=== PATIENT | male | born 1950 | race Caucasian/White ===

== ENCOUNTER 2021-04-19 14:37 | Emergency (ER) | payer MEDICARE, SELFPAY ==
[2021-04-19 14:48] VITALS: BP 156/84; PULSE 110; RESP 16; TEMP 38.5; O2SAT 96
--- NOTE | 2021-04-19 16:00 | ED.MALEGU ---
HPI - Male Genitourinary General Chief complaint: Fever Stated complaint: fever chills side pain Source: patient Mode of arrival: ambulatory Limitations: no limitations History of Present Illness HPI Narrative: Patient is a 70-year-old male who presents complaining of fever and lower back pain. Patient reports a history of kidney stones. He denies cough, chest pain, fever or shortness of breath. He reports vaccinated for Covid x2. He denies known exposure. Patient reports he was concerned as his urine was dark as well. He denies pain at this time. He denies all other complaints. Related Data Home Medications Medication Instructions Recorded Confirmed atorvastatin 40 mg PO DAILY 04/19/21 04/19/21 tadalafil 20 mg PO PRN PRN 04/19/21 04/19/21 Allergies Allergy/AdvReac Type Severity Reaction Status Date / Time No Known Allergies Allergy Verified 04/19/21 14:52 Review of Systems Review of Systems: CONSTITUTIONAL: Denies fever, chills, or sweats. EYES: Denies visual changes, redness, or discharge. ENT: Denies rhinorrhea, congestion, sore throat, or otalgia. CARDIOVASCULAR: Denies chest pain, palpitations, or edema. RESPIRATORY: Denies cough or dyspnea. GASTROINTESTINAL: Denies abdominal pain, nausea, vomiting, or diarrhea. GENITOURINARY: Denies dysuria, reports dark urine SKIN: Denies rash or itching. MUSCULOSKELETAL: Denies back pain, joint pain, or myalgia. NEUROLOGIC: Denies headache, numbness, dizziness, or weakness. PSYCHIATRIC: Denies anxiety or depression. [facility] Past Medical History Medical History Hypercholesterolemia Kidney stone Surgical History Surgical History History of hip replacement Family History Family History (Updated 04/19/21 @ 16:06 by RYAN Capps) Other Colon cancer Heart disease Hypertension Social History Social History (Updated 04/19/21 @ 16:07 by RYAN Capps) Smoking status: Never smoker Alcohol intake: current Alcohol use details: Occasional Substance use: never Living arrangements: with family Comments At the time of signature, I have reviewed and agree with nursing past medical, surgical, social, and family history unless otherwise noted. Please see nursing chart for further information. There is no relevant family history pertinent to the presenting complaint. Exam Narrative: GENERAL: Well-appearing, well-nourished, and in no acute distress. HEAD: Normocephalic, atraumatic. EYES: EOMI. No redness or drainage. Conjunctiva are normal. ENT: Mucous membranes pink and moist. CHEST: No respiratory distress. Clear to auscultation. HEART: Regular rate and rhythm. No murmur appreciated. Normal peripheral pulses. Bowel sounds normal in all quadrants. MUSCULOSKELETAL: No bony tenderness. EXTREMITIES: Normal range of motion. No edema. SKIN: Warm, dry, no rash. NEURO: No focal deficits. Alert and oriented x3. Gait steady. PSYCH: Normal affect. No signs of depression or anxiety. Course Vital Signs Vital signs: Vital Signs Temperature 38.5 C H 04/19/21 14:48 Pulse Rate 110 H 04/19/21 14:48 Respiratory Rate 16 04/19/21 14:48 Blood Pressure 156/84 H 04/19/21 14:48 Pulse Oximetry 96 04/19/21 14:48 Temperature 38.5 C H 04/19/21 14:48 Pulse Rate 110 H 04/19/21 14:48 Respiratory Rate 16 04/19/21 14:48 Blood Pressure 156/84 H 04/19/21 14:48 Pulse Oximetry 96 04/19/21 14:48 Reviewed. Patient has been instructed to follow-up with his PCP regarding his blood pressure. MDM - Male Genitourinary MDM Narrative Medical decision making narrative: Discussed with patient probable complicated UTI. Patient to be started on Cipro at this time. Discussed patient being seen in the ED at this time, and patient refuse at this time. Discussed with patient the need to follow-up with PCP or urology this
[2021-04-19 16:15] VITALS: PULSE 88; RESP 16; TEMP 38.5; O2SAT 98
== END 2021-04-19 16:15 | disposition home or self-care (01) ==
PROVIDERS: Emergency Provider Nurse Practitioner; PCP Internal Medicine
DX: N39.0 Urinary tract infection, site not specified (principal); E78.00 Pure hypercholesterolemia, unspecified; Z96.649 Presence of unspecified artificial hip joint
CPT/HCPCS: 81003; 87086; 87147; 87181; 87186; 99213; G0463

== ENCOUNTER 2023-01-18 12:34 | Outpatient (CLI) | payer MEDICARE, SELFPAY ==
--- NOTE | ~2023-01-18 | US_ITS ---
US renal BI 01/18/2023 13:19 Procedure: Realtime transabdominal ultrasound of the kidneys and bladder. Indication: Chronic kidney disease. Comparison: KUB dated 04/15/2018. Findings: Right renal echotexture is normal without hydronephrosis, mass or stone. Right kidney measu res 11.7 cm. There is severe left hydronephrosis. Left kidney measures 13.3 cm. There is fatty infilt ration of the liver. There is a 4 cm stone in the left renal pelvis. Impression: 1: Left renal stone measuring 4 cm in the left renal pelvis with severe left hydronephrosis. There is left renal cortical thinning. Reviewed, dictated and finalized at location [] Impression: 1: Left renal stone measuring 4 cm in the left renal pelvis with severe left hy dronephrosis. There is left renal cortical thinning.
== END 2023-01-18 12:35 | disposition home or self-care (01) ==
PROVIDERS: PCP Internal Medicine; Visit Provider Internal Medicine
DX: N18.9 Chronic kidney disease, unspecified (principal); N13.2 Hydronephrosis with renal and ureteral calculous obstruction
CPT/HCPCS: 76775

== ENCOUNTER 2023-06-07 08:58 | Outpatient (CLI) | payer MEDICARE, SELFPAY ==
[2023-06-07 10:03] LABS: Hematocrit 42.3 % (42.0-52.0); Mean Corpuscular HGB Conc 30.7 g/dl (32-36); Mean Corpuscular Hemoglobin 28.7 pg (26-34); Mean Corpuscular Volume 93.4 fl (80-100); Mean Platelet Volume 10.5 fl (7.4-10.4); Platelet Count Result 334 k/mm3 (150-375); Red Blood Count 4.53 M/mm3 (4.6-6.20); Red Cell Distribution Width 13.2 % (11.5-14.5); White Blood Count 6.5 K/mm3 (4.5-10.0)
[2023-06-07 10:09] LABS: Appearance Urine Clear (Clear); Bacteria Urine None Seen /hpf; Bilirubin Urine Negative (Negative); Blood Urine Negative (Negative); Color Urine Yellow (Yellow); Glucose Urine UA Negative (Negative); Ketones Urine Negative (Negative); Leukocyte Esterase Ur Trace LEU/UL (NEGATIVE); Nitrate Urine Negative (Negative); Non Pathogenic Casts 0-2; Protein Urine Negative (Negative); RBC Urine 0-2 /hpf (0-2); Specific Grav Ur 1.014 (1.001-1.035); Squamous Epithelial Cell Urine None seen /hpf (Few); Urobilinogen Urine 0.2 mg/dL (<2.0); pH Urine 6.5 (5.0-9.0)
[2023-06-07 10:14] LABS: Add Urine Microscopic? YES
[2023-06-07 10:36] LABS: Albumin Level 4.1 g/dL (3.5-5.1); Anion Gap 5 mmol/L (8-16); Blood Urea Nitrogen 21 mg/dL (9-20); Calcium 9.4 mg/dL (8.4-10.2); Carbon Dioxide 28 mmol/L (22-30); Chloride 106 mmol/L (98-107); Estimated Glomerular Filt Rate 43; Glucose 92 mg/dL (65-110); Phosphorus 3.5 mg/dL (2.5-4.5); Potassium 4.8 mmol/L (3.4-5.0); Sodium 139 mmol/L (137-145)
[2023-06-07 10:39] LABS: Complement C3 130 mg/dL (88-165)
[2023-06-07 10:47] LABS: Parathyroid Intact 47.7 pg/mL (7.5-53.5)
[2023-06-07 10:52] LABS: Vitamin D 25 Hydroxy 48.2 ng/mL
[2023-06-07 11:00] LABS: Creatinine Urine 97.1 mg/dL; Total Protein Urine Random 9 mg/dL; Ur Ttl Prot Creatinine Ratio 0.09 mg/mg (0-0.20)
[2023-06-07 11:04] LABS: MALB Creatinine Ratio 10.1 mg/g (0-30); Microalbumin Urine Random 9.8 mg/L (0-16.7)
[2023-06-07 11:24] LABS: Hepatitis C Virus Antibody Negative (Negative)
[2023-06-09 14:59] LABS: Albumin 3.5 g/dL (3.8-4.8); Alpha 1 Globulin 0.4 g/dL (0.2-0.3); Alpha 2 Globulin 0.9 g/dL (0.5-0.9); Beta 1 Globulin 0.5 g/dL (0.4-0.6); Gamma Globulin 1.1 g/dL (0.8-1.7); Protein, Total 6.8 g/dL (6.1-8.1)
[2023-06-09 21:33] LABS: Kappa\\Lambda Light Chains 1.59 (0.26-1.65); Lambda Light Chain 28.4 mg/L (5.7-26.3)
== END 2023-06-07 08:59 | disposition home or self-care (01) ==
PROVIDERS: PCP Internal Medicine; Visit Provider Internal Medicine Nephrology
DX: N18.30 Chronic kidney disease, stage 3 unspecified (principal); N20.0 Calculus of kidney; N40.0 Benign prostatic hyperplasia without lower urinary tract symptoms; E78.00 Pure hypercholesterolemia, unspecified
CPT/HCPCS: 36415; 80069; 81001; 82043; 82306; 82570; 83735; 83883; 83970; 84155; 84156; 84165; 85027; 86160; 86803

== ENCOUNTER 2023-12-30 16:47 | Outpatient (CLI) | payer MEDICARE, SELFPAY ==
--- NOTE | ~2023-12-30 | XR_ITS ---
EXAMINATION: XR abdomen/kub 1V DATE: 12/30/2023 17:05 INDICATION: Right kidney stone TECHNIQUE: A supine view of the abdomen on 2 radiographs was obtained. COMPARISON: 04/15/2018 FINDINGS: 7 x 5 mm triangular stone projecting over the mid right kidney and 4 mm stone projecting over the low er pole of the right kidney. Postoperative changes with suture lines and surgical clips to the left o f L1 and L2 and along the medial side of the left iliac crest along with absent left renal shadow sug gesting prior left nephrectomy. Normal bowel gas pattern with no dilated loops of gas-filled bowel to suggest obstruction. Visualized lung bases are clear. Unchanged resurfacing type left hip arthroplas ty with stable appearance of a nonaggressive appearing lytic lesion with thin sclerotic margins in th e left supra-acetabular region. IMPRESSION: 1. A couple right renal stones and postoperative changes suggesting prior left nephrectomy. Reviewed, dictated and finalized at location A.
== END 2023-12-30 16:48 | disposition home or self-care (01) ==
PROVIDERS: PCP Internal Medicine; Visit Provider Urology
DX: N20.0 Calculus of kidney (principal)
CPT/HCPCS: 74018

== ENCOUNTER 2024-01-20 09:30 | Outpatient (CLI) | payer MEDICARE, SELFPAY ==
--- NOTE | ~2024-01-20 | CT_ITS ---
Non-contrast CT scan of the Abdomen and Pelvis Clinical indication: Right kidney stone Technique: 2.5 mm axial scans were obtained through the abdomen and pelvis without intravenous or or al contrast. Dose reduction technique was used on this scan by utilizing automated exposure control a nd iterative reconstruction technique. The dose-length product (DLP) was 487.76 mGy-cm. Findings: Images through the lung bases reveal no abnormalities. Nonobstructing right renal stones are present, largest measuring 8 mm. Status post left nephrectomy. No right ureteral stone or right hydronephrosis seen. The liver, spleen, pancreas, and adrenals appear normal. Probable small gallstones. There are atheros clerotic calcifications of the aorta. There is no evidence of bowel obstruction. Images through the pelvis were performed. There is no evidence of ascites or lymphadenopathy. Right-s ided urinary bladder diverticulum present. No other pelvic mass evident. There is streak artifact in the pelvis from left hip arthroplasty. Impression: Nonobstructing right renal stones, as above. Status post left nephrectomy. Cholelithiasis. Reviewed, dictated and finalized at location M. Impression: Nonobstructing right renal stones, as above. Status post left nephrectomy. Cholelithiasis.
== END 2024-01-20 09:31 | disposition home or self-care (01) ==
LOC: ANHIMG 09:32
PROVIDERS: PCP Internal Medicine; Visit Provider Urology
DX: N20.0 Calculus of kidney (principal); K80.20 Calculus of gallbladder without cholecystitis without obstruction
CPT/HCPCS: 74176

== ENCOUNTER 2024-01-24 10:45 | Outpatient (CLI) | payer MEDICARE, SELFPAY ==
[2024-01-24 11:22] LABS: Hematocrit 44.9 % (42.0-52.0); Hemoglobin 14.6 g/dL (14.0-18.0); Mean Corpuscular HGB Conc 32.5 g/dl (32-36); Mean Corpuscular Hemoglobin 30.1 pg (26-34); Mean Corpuscular Volume 92.6 fl (80-100); Mean Platelet Volume 10.6 fl (7.4-10.4); Platelet Count Result 240 k/mm3 (150-375); Red Blood Count 4.85 M/mm3 (4.6-6.20); Red Cell Distribution Width 13.2 % (11.5-14.5); White Blood Count 6.4 K/mm3 (4.5-10.0)
[2024-01-24 11:26] LABS: Appearance Urine Clear (Clear); Bilirubin Urine Negative (Negative); Blood Urine Negative (Negative); Color Urine Yellow (Yellow); Glucose Urine UA Negative (Negative); Ketones Urine Negative (Negative); Leukocyte Esterase Ur Negative LEU/UL (Negative); Nitrate Urine Negative (Negative); Protein Urine Negative (Negative); Specific Grav Ur 1.007 (1.001-1.035); Urobilinogen Urine 0.2 mg/dL (<2.0); pH Urine 6.5 (5.0-9.0)
[2024-01-24 11:36] LABS: Albumin Level 4.4 g/dL (3.5-5.1); Anion Gap 6 mmol/L (4-12); Blood Urea Nitrogen 22 mg/dL (9-20); CRP < 0.5 mg/dL (<1.0); Calcium 9.4 mg/dL (8.4-10.2); Carbon Dioxide 26 mmol/L (22-30); Chloride 108 mmol/L (98-107); Estimated Glomerular Filt Rate 35; Glucose 92 mg/dL (65-110); Phosphorus 2.6 mg/dL (2.5-4.5); Potassium 4.8 mmol/L (3.4-5.0); Sodium 140 mmol/L (137-145)
[2024-01-24 11:40] LABS: Add Urine Microscopic? NO
[2024-01-24 12:04] LABS: Creatinine Urine 45.7 mg/dL; Total Protein Urine Random 10 mg/dL; Ur Ttl Prot Creatinine Ratio 0.22 mg/mg (0-0.20)
[2024-01-24 12:07] LABS: Vitamin D 25 Hydroxy 49.1 ng/mL
[2024-01-24 12:08] LABS: Microalbumin Urine Random 7.3 mg/L (0-16.7)
[2024-01-24 12:24] LABS: Erythrocyte Sedimentation Rate 13 mm/hr (0-20)
== END 2024-01-24 10:46 | disposition home or self-care (01) ==
LOC: ANHLAB 10:50
PROVIDERS: PCP Internal Medicine; Visit Provider Internal Medicine Nephrology
DX: E78.00 Pure hypercholesterolemia, unspecified (principal); I12.9 Hypertensive chronic kidney disease with stage 1 through stage 4 chronic kidney disease, or unspecified chronic kidney disease; N18.30 Chronic kidney disease, stage 3 unspecified; N20.0 Calculus of kidney; N40.0 Benign prostatic hyperplasia without lower urinary tract symptoms
CPT/HCPCS: 36415; 80069; 81003; 82043; 82306; 82570; 83735; 84156; 85027; 85652; 86140

== ENCOUNTER 2024-02-28 09:38 | Outpatient (CLI) | payer MEDICARE, SELFPAY ==
[2024-03-14 14:10] LABS: Reference Lab Test Name Stone Risk
== END 2024-02-28 09:39 | disposition home or self-care (01) ==
PROVIDERS: PCP Internal Medicine; Visit Provider Internal Medicine Nephrology
DX: N40.0 Benign prostatic hyperplasia without lower urinary tract symptoms (principal); I12.9 Hypertensive chronic kidney disease with stage 1 through stage 4 chronic kidney disease, or unspecified chronic kidney disease; N18.30 Chronic kidney disease, stage 3 unspecified; N20.0 Calculus of kidney; E78.00 Pure hypercholesterolemia, unspecified
CPT/HCPCS: 36415

== ENCOUNTER 2024-04-24 09:38 | Outpatient (CLI) | payer MEDICARE, SELFPAY ==
[2024-04-24 10:42] LABS: Albumin Level 4.2 g/dL (3.5-5.1); Anion Gap 11 mmol/L (4-12); Blood Urea Nitrogen 23 mg/dL (9-20); Carbon Dioxide 25 mmol/L (22-30); Chloride 103 mmol/L (98-107); Estimated Glomerular Filt Rate 33; Glucose 105 mg/dL (65-110); Phosphorus 2.8 mg/dL (2.5-4.5); Potassium 4.2 mmol/L (3.4-5.0); Sodium 139 mmol/L (137-145)
[2024-04-24 10:51] LABS: Parathyroid Intact 56.7 pg/mL (14.5-75.2)
[2024-04-24 10:58] LABS: Creatinine Urine 146.7 mg/dL; Total Protein Urine Random 12 mg/dL; Ur Ttl Prot Creatinine Ratio 0.08 mg/mg (0-0.20)
[2024-04-24 11:00] LABS: Creatinine Urine 146.2 mg/dL
[2024-04-24 11:04] LABS: MALB Creatinine Ratio 27.4 mg/g (0-30)
[2024-04-24 11:29] LABS: Add Urine Microscopic? YES; Appearance Urine Clear (Clear); Bacteria Urine None Seen /hpf; Bilirubin Urine Negative (Negative); Blood Urine Negative (Negative); Color Urine Yellow (Yellow); Glucose Urine UA Negative (Negative); Ketones Urine Negative (Negative); Leukocyte Esterase Ur Trace LEU/UL (Negative); Nitrate Urine Negative (Negative); Non Pathogenic Casts 0-2; Protein Urine Negative (Negative); RBC Urine 0-2 /hpf (0-2); Specific Grav Ur 1.013 (1.001-1.035); Squamous Epithelial Cell Urine None Seen /hpf (Few); WBC Urine 0-5 /hpf (0-3); pH Urine 7.5 (5.0-9.0)
== END 2024-04-24 09:39 | disposition home or self-care (01) ==
LOC: ANHLAB 09:48
PROVIDERS: PCP Internal Medicine; Visit Provider Internal Medicine Nephrology
DX: N18.30 Chronic kidney disease, stage 3 unspecified (principal); N40.0 Benign prostatic hyperplasia without lower urinary tract symptoms; E78.00 Pure hypercholesterolemia, unspecified
CPT/HCPCS: 36415; 80069; 81001; 82043; 82306; 82570; 83970; 84156

== ENCOUNTER 2024-09-19 10:08 | Outpatient (CLI) | payer MEDICARE, SELFPAY ==
--- OUTSIDE RECORDS SUMMARY | 2024-09-19 11:19 | XMS_ITS | Clinical Summary ---
Author Organization [facility] Address [address] [address] Care Team Providers Care Linux Unix Administrator Name Role Phone Yovani Jose MD Primary Care Provider [phone] Medications ciprofloxacin (CIPRO) 500 MG tablet Take 2 tablets (1,000 mg total) by mouth 1 (one) time each day 24 tablet 05/14/2023 Active chlorthalidone 25 MG tablet Take 1 tablet (25 mg total) by mouth 1 (one) time each day in the morning 90 tablet 1 06/08/2023 Active Social History Tobacco Use Types Packs/Day Years Used Date Smoking Tobacco: Never Assessed Sex and Gender Information Value Date Recorded Sex Assigned at Not on file Legal Sex Male 4:20 PM EDT Gender Identity Not on file Sexual Orientation Not on file Last Filed Vital Signs Vital Sign Reading Time Taken Comments Blood Pressure 138/90 05/02/2024 2:39 PM CDT Pulse 79 05/02/2024 2:39 PM CDT Temperature 36.1 C (97 F) 05/02/2024 2:39 PM CDT Respiratory Rate 18 05/02/2024 2:39 PM CDT Oxygen Saturation 97% 05/02/2024 2:39 PM CDT Inhaled Oxygen Concentration - - Weight 105 kg (231 lb 12.8 oz) 05/02/2024 2:39 P M CDT Height - - Body Mass Index - - Plan of Treatment Upcoming Encounters Date Type Department Care Team (Late st Contact Info) Description 10/31/2024 1:00 PM CDT Office Visit [facility] [address] [facility] [address] [place] [address] Obdulio Burgos, DO [address] [facility] [address] [place] [address] Health Maintenance Due Date Last Done Comments Pneumococcal Vaccine: 65+ Ye ars (1 of 2 - PCV) 1957 Colorectal Cancer Screening: Annual FOBT 2000 Colorectal Cancer Screening: Colonoscopy 2000 Colorectal Cancer Screening: Sigmoidoscopy 2000 Influenza Vaccine (#1) 2024 07/11/2019 Hepatitis B Vaccine Aged Out No longe r eligible based on patient's age to complete this topic Insurance AETNA MCR ADV PPO ([id number]) Advance Directives Documents on File Type Date Recorded 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
--- OUTSIDE RECORDS SUMMARY | 2024-09-19 11:19 | XMS_ITS | Clinical Summary ---
Author Organization [facility] Address [address] [place] [id number] Care Team Providers Care Parking Supervisor Name Role Phone Yovani Jose MD Primary Care Provider Karlso Bailey MD Unavailable [phone] Allergies No known active allergies Medications atorvastatin (LIPITOR) 40 mg tablet Take 1 tablet (40 mg total) by mouth daily Active aspirin 81 mg enteric coated tablet Take 1 tablet (81 mg total) by mouth daily 11/09/2013 Active tadalafiL (CIALIS) 20 mg tablet Take 1 tablet (20 mg total) by mouth daily as needed Active apple cider vinegar 300 mg tablet Take by mouth Active cholecalciferol (VITAMIN D-3) 3,000 unit tablet Active chlorthalidone (HYGROTON) 25 mg tablet Take 1 tablet (25 mg total) by mouth daily Active tamsulosin (FLOMAX) 0.4 mg extended release capsule Take 1 capsule (0.4 mg total) by mouth nightly 30 capsule 03/03/2024 Active Active Problems Problem Noted Date Diagnosed Date Calculus of ureter 02/18/2024 Calculus of kidney 02/03/2024 Atrophic kidney, acquired 08/31/2023 Atrophic kidney 08/31/2023 Hypertension 08/19/2023 Hyperlipidemia 08/19/2023 Atrophy of left kidney 08/06/2023 Surgical follow-up care 02/02/2014 Surgical History Surgery Date Site/Laterality Comments PARTIAL HIP ARTHROPLASTY Left PERCUTANEOUS NEPHROSTOMY PCN LEFT 05/13/2023 Left OTHER SURGICAL HISTORY 08/31/2023 Hand Assisted Laparoscopic Left Nephrectomy OTHER SURGICAL HISTORY 03/03/2024 Right ureteroscopy, right stent placement, retrograde pyelogram Medical History Medical History Date Comments Encounter for other orthopedic aftercare Orthopedic aftercare - (Added by TW Conv) Nephrolithiasis BPH (benign prostatic hyperplasia) HLD (hyperlipidemia) Hyperlipidemia 08/19/2023 Hypertension 08/19/2023 H/O left nephrectomy Family History Medical History Relation Name Comments Heart attack Mother's Brother Relation Name Status Comments Mother's Brother Alive Social History Tobacco Use Types Packs/Day Years Used Date Smoking Tobacco: Never Smokeless Tobacco: Never Tobacco Cessation:Counseling Given: Not Answered Alcohol Use Standard Drinks/Week Comments Not Currently 0 (1 standard drink = 0.6 oz pur e alcohol) rare AUDIT-C Answer Date Recorded Frequency of Alcohol Consumption Not on file 03/17/2024 Q2: How many drinks containi ng alcohol do you have on a typical day when you are drinking? Patient does not drink Frequency of Binge Drinking Not on file 04/2024 Personal Safety Answer Date Recorded Have you ever been in or are you currently in a harmful physical or emotional relationship or is someone making you feel afraid or unsafe? 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 Gender Identity Not on file Sexual Orientation Not on file Obstetrics History Last Filed Vital Signs Vital Sign Reading Time Taken Comments Blood Pressure 155/90 03/23/2024 1:10 PM CDT Pulse 87 03/23/2024 1:10 PM CDT Temperature 36.2 C (97.1 F) 03/23/2024 1:10 PM CDT Respiratory Rate 18 03/23/2024 1:10 PM CDT Oxygen Saturation 95% 03/23/2024 1:10 PM CDT Inhaled Oxygen Concentration - - Weight 104.1 kg (229 lb 8 oz) 03/23/2024 10:06 A M CDT Height 180.3 cm (5' 11 ) 03/23/2024 10:06 AM CDT Body Mass Index 32.01 03/23/2024 10:06 AM CDT Plan of Treatment Health Maintenance Due Date Last Done Comments Colon Cancer Screening-Colonoscopy 1951 Depression Screening 1950 Hepatitis C Screening 1950 DTaP/Tdap/Td Vaccine (1 - Tdap) 1962 Hepatitis B Screening 1969 Zoster Vaccine (1 of 2) 2001 Pneumococcal vaccine 65+ (1 of 1 - PCV) 2016 Well Visit 65+ 2016 Covid-19 Vaccine (3 - season) 04/09/202406/2021, 10/22/2020 Influenza Vaccine (#1) 2024 9, 06/03/2018, 06/11/2017 Fall Risk Assessment 03/15/2025 03/15/2024, 02/03/2024, 09/01/2023 Medical Devices Implanted Type 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 Worker Device Identifier Shelf Expiration Date Model / Serial / Lot [employer] Airam Contour 6fr 26cm Large Inner Lumen Low Profile Bladder [employer]cho[employer] T[employer] Latex Free 180-223 - [id number] Implanted:Qty: 1 on 03/23/2024 by Karlos Bailey MD at [facility] Right: Ureter [employer] Airam 10/24/2026 [id number] / / [id number] Explanted Type Area 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 Worker Device Identifier Shelf Expiration Date Model / Serial / Lot [employer] Airam Contour 6fr 26cm Large Inner Lumen Low Profile Bladder [employer]cho[employer] Taper Latex Free 180-223 - [id number] Implanted:Qty: 1 on 03/03/2024 by Karlos Bailey MD at [facility] Explanted:Qty: 1 on 03/23/2024 at [facility] Right: Ureter [employer] Airam 09/17/2026 [id number] / / [id number] Insurance AETNA MEDICARE AETNA MEDICARE Advance Directives For more information, please contact: [phone] * Full Code (Latest Code Status on File) Date Activated Date Inactivated Comments 08/31/2023 6:40 PM 09/01/2023 6:26 PM Care Teams Parking Supervisor Relationship Specialty Start Date End Date Yovani Jose MD PCP - General 10/14/18 [place] [address] [place] [address] Consulting Physician Urology 09/01/23
--- OUTSIDE RECORDS SUMMARY | 2024-09-19 11:19 | XMS_ITS | Data Portability ---
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 Plan of Treatment Reminders Order Date Submit Date Provider Last Modified By Organization Details Last Modified Time Details Appointments None recorded. Lab CMP, serum or plasma 023 023 [facility], [address] [place], [address], 3 09:09:25 CBC w/ auto diff 023 023 [facility], [address] [place], [address], 3 09:09:26 phosphoru s, serum or plasma 023 023 [facility], [address] [place], [address], 3 09:09:23 PTH (parathyr oid hormone), intact, serum or plasma 023 023 [facility], [address] [place], [address], 3 14:49:16 uric acid, serum or plasma 023 023 [facility], [address] [place], [address], 3 09:09:24 vitamin D, 25-hydrox y, total, serum 023 08/22/2 023 [facility], [address] [place], [address], 3 09:09:26 lipid panel, serum [id number] [place] [address] Outpatient Lab, [address] [place], [address], 4 17:28:17 CMP, serum or plasma [id number] [place] [address] Outpatient Lab, [address] [place], [address], 4 17:28:18 TSH, serum or plasma [id number] [place] [address] Lab, [address] [place], [address], 4 17:28:18 CBC w/ auto diff [id number] [place] [address] Outpatient Lab, [address] [place], [address], 4 17:28:18 T4, free, serum [id number] [place] [address] Outpatient Lab, [address] [place], [address], 4 17:28:18 PSA, serum or plasma [id number] [place] [address] Lab, [address] [place], [address], 4 17:28:18 Referral None recorded. Procedures None recorded. Surgeries None recorded. Imaging None recorded. Medication Orders None recorded. Patient TargetsNo targets recorded. Patient Instructions Encounter Date Encounter Id Patient Instructions Last Modified By Organization Details Last Modified Time 03/30/2023 [id number] dementia rating scale-2* Not available 03/30/2023 11:06:06 alcohol misuse* [email or web address] Not available 03/30/2023 11:06:06 depression screening* [email or web address] Not available 03/30/2023 11:06:06 multi-dimensiona health assessment questionnaire* Not available 03/30/2023 11:06:06 Personalized a [facility] Plan and Screening Recommendations Advance Directives - Do you have one? No Advance Directives - Do we have your advance directive on file in your health record? Primary Prevention/Interven tion (prevents or decreases the chance of common diseases from occurring) Smoking Risk: Non Smoker Alcohol Misuse Screening: Negative Weight: Appropriate Overwei ght continue your current weight loss efforts try to lose 5% of your body weight try to lose 10% of your body weight Physical activity: Need more exercise/physical activity Nutrition: Good Average Fall Risk (screened today): Low Vaccines Pneumococcal: Ordered Recommended today Recommended today, but you have declined Influenza: Your next one in the fall of this year Chronic Disease Risks Stroke: Low Risk Intermediate Risk I have no recommendations Act uziel diagnosis, Continue current treatment plan Heart Attack: Low risk Intermediate Risk I have no recommendations Act uziel diagnosis, Continue current treatment plan Clogging of the Arteries: Low risk Intermediate Risk I have no recommendations Act uziel diagnosis, Continue current treatment plan Diabetes: Low Risk Intermediate Risk I have no recommendations Ref er to attached handout Pre-diabetes: After Your Visit Drastically limit sugar and products made with any type of flour (bread, pasta, cereal, cookies, crackers, etc.) Secondary Prevention/Interven tion (detects treatable diseases before they may cause symptoms, disability, or ) Prostate Cancer Screening: Colon Cancer Screening: Colonoscopy Date Screening Last Performed: __2019__ Eye Disease Screening: Dementia Risk: Low I have no recommendations Depression Screening: Negative [email or web address] Not available 03/30/2023 10:48:40 Medicare wellnes s evaluation risk assessment stable. Over overall is doing well. Will check a CMP, lipid, phosphorus, PTH, vitamin-D level and CBC. Obtain radiographic studies of the left shoulder. Instructed to stay away from any nonsteroidals because the renal dysfunction. Will try to to rearrange for a Nephrology consult. X-ray of the left shoulder [email or web address] Not available 03/30/2023 11:05:39 09/28/2023 [id number] Renal calculi-hyperlipide osmar -family history of colorectal cancer -mild obesity. Plan to check blood work in the form of CBC, CMP, lipid, thyroid and PSA. Continue on current Rx follow-up six months. Portions of the record may have been created with voice recognition software. Occasional wrong-word or [id number] substitutions may have occurred due to the inherent limitations of voice recognition software. Read the chart carefully and recognize, using context, where substitutions have occurred. [email or web address] Not available 09/28/2023 10:57:27 Reason for Referral None Reported. Results Created Date Observation Date Name Description Value Unit Range Abnormal Flag Note LastModifiedBy Organization Detail LastModifiedTime 09/19/19 22 09/20/2021 PSA, TOTAL PSA, total 1.14 NG/mL < or = 4.00 normal The total PSA value from this assay syste m is stand ardiz ed again st the WHO stand pily. The test resul t will be appro ximat megan 20% lower when jr red to the equim olar- stand ardiz ed total PSA (Alonso man Coult er). Jr rison of seria l PSA resul ts shoul d be inter prete d with this fact in mind. This test was perfo rmed using the Identity Enginese ns chemi lumin escen t metho d. Value s obtai logan from diffe rent assay metho ds canno t be used inter shah eably . PSA level s, regar dless of value , shoul d not be inter prete d as absol [place] evide nce of the prese nce or absen ce of disea se. Not Available [facility] [employer] [place] [address] [address] [place], [address], 09/20/2021 06:42:52 09/19/19 22 09/20/2021 CBC (INCL UDES DIFF/ PLT) white blood cell count 6.4 thous and/u L 3.8-10 .8 normal Not Available [facility] [place] [facility] [address] [place], [address], 09/20/2021 06:42:51 09/19/19 22 09/20/2021 CBC (INCL UDES DIFF/ PLT) red blood cell count 4.56 bre on/uL 4.20-5 .80 normal Not Available [address], [address], 09/20/2021 06:42:51 09/19/19 22 09/20/2021 CBC (INCL UDES DIFF/ PLT) hemoglobin 13.6 g/dL 13.2-1 7.1 normal Not Available [address], [address], 09/20/2021 06:42:51 09/19/19 22 09/20/2021 CBC (INCL UDES DIFF/ PLT) hematocrit 40.6 % 38.5-5 0.0 normal Not Available [address], [address], 09/20/2021 06:42:51 09/19/19 22 09/20/2021 CBC (INCL UDES DIFF/ PLT) MCV 89.0 fL 80.0-1 00.0 normal Not Available [address], [address], 09/20/2021 06:42:51 09/19/19 22 09/20/2021 CBC (INCL UDES DIFF/ PLT) MCH 29.8 pg 27.0-3 3.0 normal Not Available [address], [address], 09/20/2021 06:42:51 09/19/19 22 09/20/2021 CBC (INCL UDES DIFF/ PLT) MCHC 33.5 g/dL 32.0-3 6.0 normal Not Available [address], [address], 09/20/2021 06:42:51 09/19/19 22 09/20/2021 CBC (INCL UDES DIFF/ PLT) RDW 13.1 % 11.0-1 5.0 normal Not Available [address], [address], 09/20/2021 06:42:51 09/19/19 22 09/20/2021 CBC (INCL UDES DIFF/ PLT) platelet count 309 thous and/u L 140-40 0 normal Not Available [address], [address], 09/20/2021 06:42:51 09/19/19 22 09/20/2021 CBC (INCL UDES DIFF/ PLT) MPV 11.6 fL 7.5-12 .5 normal Not Available [address], [address], 09/20/2021 06:42:51 09/19/19 22 09/20/2021 CBC (INCL UDES DIFF/ PLT) absolute neutrophils 4006 cells /uL 1500-7 800 normal Not Available [address], [address], 09/20/2021 06:42:51 09/19/19 22 09/20/2021 CBC (INCL UDES DIFF/ PLT) absolute lymphocytes 1651 cells /uL 850-39 00 normal Not Available [address], [address], 09/20/2021 06:42:51 09/19/19 22 09/20/2021 CBC (INCL UDES DIFF/ PLT) absolute monocytes 563 cells /uL 200-95 0 normal Not Available [address], [address], 09/20/2021 06:42:51 09/19/19 22 09/20/2021 CBC (INCL UDES DIFF/ PLT) absolute eosinophils 128 cells /uL 15-500 normal Not Available [address], [address], 09/20/2021 06:42:51 09/19/19 22 09/20/2021 CBC (INCL UDES DIFF/ PLT) absolute basophils 51 cells /uL 0-200 normal Not Available [facility] [address], [address], 09/20/2021 06:42:51 09/19/19 22 09/20/2021 CBC (INCL UDES DIFF/ PLT) neutrophils 62.6 % normal Not Available [facility] [address], [address], 09/20/2021 06:42:51 09/19/19 22 09/20/2021 CBC (INCL UDES DIFF/ PLT) lymphocytes 25.8 % normal Not Available [facility] [address], [address], 09/20/2021 06:42:51 09/19/19 22 09/20/2021 CBC (INCL UDES DIFF/ PLT) monocytes 8.8 % normal Not Available [facility] [address], [address], 09/20/2021 06:42:51 09/19/19 22 09/20/2021 CBC (INCL UDES DIFF/ PLT) eosinophils 2.0 % normal Not Available [facility] [address], [address], 09/20/2021 06:42:51 09/19/19 22 09/20/2021 CBC (INCL UDES DIFF/ PLT) basophils 0.8 % normal Not Available [facility] [address], [address], 09/20/2021 06:42:51 09/19/19 22 09/20/2021 COMPR EHENS UIZEL METAB OLIC PANEL glucose 90 mg/dL 65-99 normal Fasti ng refer ence inter ricky Not Available [facility] [address], [address], 09/20/2021 06:42:51 09/19/19 22 09/20/2021 COMPR EHENS UZIEL METAB OLIC PANEL urea nitrogen (BUN) 23 mg/dL 7-25 normal Not Available [address] [address] [place], [address], 09/20/2021 06:42:51 09/19/19 22 09/20/2021 COMPR EHENS UZIEL METAB OLIC PANEL creatinine 1.30 mg/dL 0.70-1 .18 high For patie nts >49 years of age, the refer ence limit for Creat inine is appro ximat megan 13% highe r for peopl e ident ified as Afric an-Am sabrina n. Not Available [address] [address] [place], [address], 09/20/2021 06:42:51 09/19/19 22 09/20/2021 COMPR EHENS UZIEL METAB OLIC PANEL eGFR non-afr. uzbek 55 mL/mi n/1.7 3m2 > or = 60 low Not Available [address] [address] [place], [address], 09/20/2021 06:42:51 09/19/19 22 09/20/2021 COMPR EHENS UZIEL METAB OLIC PANEL eGFR 64 mL/mi n/1.7 3m2 > or = 60 normal Not Available [address] [address] [place], [address], 09/20/2021 06:42:51 09/19/19 22 09/20/2021 COMPR EHENS UZIEL METAB OLIC PANEL BUN/creatini ne ratio 18 (calc ) 6-22 normal Not Available [address] [address] [place], [address], 09/20/2021 06:42:51 09/19/19 22 09/20/2021 COMPR EHENS UZIEL METAB OLIC PANEL sodium 138 mmol/ L 135-14 6 normal Not Available [facility] [address] [address] [place], [address], 09/20/2021 06:42:51 09/19/19 22 09/20/2021 COMPR EHENS UZIEL METAB OLIC PANEL potassium 4.6 mmol/ L 3.5-5. 3 normal Not Available [address], [address], 09/20/2021 06:42:51 09/19/19 22 09/20/2021 COMPR EHENS UZIEL METAB OLIC PANEL chloride 104 mmol/ L 98-110 normal Not Available [address], [address], 09/20/2021 06:42:51 09/19/19 22 09/20/2021 COMPR EHENS UZIEL METAB OLIC PANEL carbon dioxide 27 mmol/ L 20-32 normal Not Available [address], [address], 09/20/2021 06:42:51 09/19/19 22 09/20/2021 COMPR EHENS UZIEL METAB OLIC PANEL calcium 9.6 mg/dL 8.6-10 .3 normal Not Available [address], [address], 09/20/2021 06:42:51 09/19/19 22 09/20/2021 COMPR EHENS UZIEL METAB OLIC PANEL protein, total 6.8 g/dL 6.1-8. 1 normal Not Available [address], [address], 09/20/2021 06:42:51 09/19/19 22 09/20/2021 COMPR EHENS UZIEL METAB OLIC PANEL albumin 4.0 g/dL 3.6-5. 1 normal Not Available [address], [address], 09/20/2021 06:42:51 09/19/19 22 09/20/2021 COMPR EHENS UZIEL METAB OLIC PANEL globulin 2.8 g/dL_ (calc ) 1.9-3. 7 normal Not Available [address] [place], [address], 09/20/2021 06:42:51 09/19/19 22 09/20/2021 COMPR EHENS UZIEL METAB OLIC PANEL albumin/glob ulin ratio 1.4 (calc ) 1.0-2. 5 normal Not Available [address], [address], 09/20/2021 06:42:51 09/19/19 22 09/20/2021 COMPR EHENS UZIEL METAB OLIC PANEL bilirubin, total 0.4 mg/dL 0.2-1. 2 normal Not Available [address], [address], 09/20/2021 06:42:51 09/19/19 22 09/20/2021 COMPR EHENS UZIEL METAB OLIC PANEL alkaline phosphatase 70 U/L 35-144 normal Not Available [address], [address], 09/20/2021 06:42:51 09/19/19 22 09/20/2021 COMPR EHENS UZIEL METAB OLIC PANEL AST 15 U/L 10-35 normal Not Available [address], [address], 09/20/2021 06:42:51 09/19/19 22 09/20/2021 COMPR EHENS UZIEL METAB OLIC PANEL ALT 19 U/L 9-46 normal Not Available [address], [address], 09/20/2021 06:42:51 09/19/19 22 09/20/2021 LIPID PANEL , STAND PILY cholesterol, total 184 mg/dL <200 normal Not Available [address], [address], 09/20/2021 06:42:50 09/19/19 22 09/20/2021 LIPID PANEL , STAND PILY HDL cholesterol 49 mg/dL > or = 40 normal Not Available [address] [address] [place], [address], 09/20/2021 06:42:50 09/19/19 22 09/20/2021 LIPID PANEL , STAND PILY triglyceride s 155 mg/dL <150 high Not Available [facility] [address] [address] [place], [address], 09/20/2021 06:42:50 09/19/19 22 09/20/2021 LIPID PANEL , STAND PILY LDL-choleste rol 108 mg/dL _(zohreh c) high Refer ence range : <100 Maria Eugenia able range <100 mg/dL for prima ry preve ntion ; <70 mg/dL for patie nts with CHD or diabe tic patie nts with > or = 2 CHD risk facto rs. LDL-C is now calcu lated using the Lisa echeverria-Hop klever mehta n, which is a valid ated novel danyelo ryder wan rolly r accur acy than the Fried jaz equat ion in the estim ation of LDL-C . Lisa echeverria SS et al. BASSEM. 2013; 310(1 9): 2061- 2068 (http ://ed ucati on.Ideal Me Danita [employer]. com/f aq/FA Q164) Not Available [facility] [address] [address] [place], [address], 09/20/2021 06:42:50 09/19/19 22 09/20/2021 LIPID PANEL , STAND PILY chol/HDLC ratio 3.8 (calc ) <5.0 normal Not Available [facility] [address] [address] [address] [place], [address], 09/20/2021 06:42:50 09/19/19 22 09/20/2021 LIPID PANEL , STAND PILY non HDL cholesterol 135 mg/dL _(zohreh c) <130 high For patie nts with diabe belen plus 1 major ASCVD risk facto r, treat ing to a non-H DL-C goal of <100 mg/dL (LDL- C of <70 mg/dL ) is consi dered a thera peuti c optio n. Not Available [facility] [address], [address], 09/20/2021 06:42:50 11/04/19 23 11/04/2022 PROTE IN, TOTAL , 24 HOUR URINE (W/O CREAT ININE ) protein, total, 24 HR ur 160 mg/24 _h <150 high URINE VOLUM E: 1600/ 24 Not Available [address], [address], 11/04/2022 14:34:35 01/03/2001/06/2023 CREAT ININE CLEAR ANCE creatinine 1.71 mg/dL 0.70-1 .28 high Not Available [facility] [address], [address], 01/06/2023 14:29:04 01/03/20 23 01/06/2023 CREAT ININE CLEAR ANCE eGFR 42 mL/mi n/1.7 3m2 > or = 60 low The eGFR is based on the CKD-E PI 2020 chuy lombardo. To calcu late the new eGFR from a previ ous Creat inine or Cysta tin C resul t, go to https ://anthony gould.kandace hodge/debra monahan s/ kdoqi /gfr% 5Fcal culat or Not Available [address], [address], 01/06/2023 14:29:04 01/03/20 23 01/06/2023 CREAT ININE CLEAR ANCE creatinine, 24 hour urine 1.28 g/24_ h 0.50-2 .15 normal Not Available [address] [address] [place], [address], 01/06/2023 14:29:04 01/03/20 23 01/06/2023 CREAT ININE CLEAR ANCE body surface area 2.17 Not Available [facility] [place] [address] [place], [address], 01/06/2023 14:29:04 01/03/2001/06/2023 CREAT ININE CLEAR ANCE creatinine clearance 41 mL/mi n 85-125 low Not Available [facility] [address] [place], [address], 01/06/2023 14:29:04 01/03/20 23 01/06/2023 CREAT ININE CLEAR ANCE height feet 5 FT Not Available [address], [address], 01/06/2023 14:29:04 01/03/20 23 01/06/2023 CREAT ININE CLEAR ANCE height inches 11 in Not Available [address], [address], 01/06/2023 14:29:04 01/03/2001/06/2023 CREAT ININE CLEAR ANCE weight pounds 215 Not Available [address], [address], 01/06/2023 14:29:04 04/07/2004/08/2023 PTH, INTAC T AND CALCI UM parathyroid hormone, intact 42 pg/mL 16-77 normal Inter preti ve Guide Intac t PTH Calci um ----- ----- ----- --- ----- ----- ----- -- Maria Guadalupe l Parat hyroi d Maria Guadalupe l Maria Guadalupe l Hypop brian yroid ism Low or Low Maria Guadalupe l Low Hyper parat hyroi dism Prima ry Maria Guadalupe l or High High Secon anthony High Maria Guadalupe l or Low Terti amelia High High Non-P brian yroid Hyper calce osmar Low or Low Maria Guadalupe l High Not Available [address] [address] [place], [address], 04/08/2023 09:09:22 04/07/20 23 04/08/2023 PTH, INTAC T AND CALCI UM calcium 9.5 mg/dL 8.6-10 .3 normal Not Available [address], [address], 04/08/2023 09:09:22 04/07/20 23 04/08/2023 PHOSP HATE ( PHOSP HORUS ) phosphate ( phosphorus) 3.0 mg/dL 2.1-4. 3 normal Not Available [address], [address], 04/08/2023 09:09:23 04/07/20 23 04/08/2023 URIC ACID uric acid 6.7 mg/dL 4.0-8. 0 normal Thera peuti c targe t for gout patie nts: <6.0 mg/dL Not Available [address], [address], 04/08/2023 09:09:24 04/07/20 23 04/08/2023 COMPR EHENS UZIEL METAB OLIC PANEL glucose 88 mg/dL 65-99 normal Fasti ng refer ence inter ricky Not Available [address], [address], 04/08/2023 09:09:25 04/07/2004/08/2023 COMPR EHENS UZIEL METAB OLIC PANEL urea nitrogen (BUN) 23 mg/dL 7-25 normal Not Available [address], [address], 04/08/2023 09:09:25 04/07/20 23 04/08/2023 COMPR EHENS UZIEL METAB OLIC PANEL creatinine 1.90 mg/dL 0.70-1 .28 high Not Available [address], [address], 04/08/2023 09:09:25 04/07/20 23 04/08/2023 COMPR EHENS UZIEL METAB OLIC PANEL eGFR 37 mL/mi n/1.7 3m2 > or = 60 low Not Available [address], [address], 04/08/2023 09:09:25 04/07/20 23 04/08/2023 COMPR EHENS UZIEL METAB OLIC PANEL BUN/creatini ne ratio 12 (calc ) 6-22 normal Not Available [address], [address], 04/08/2023 09:09:25 04/07/20 23 04/08/2023 COMPR EHENS UZIEL METAB OLIC PANEL sodium 141 mmol/ L 135-14 6 normal Not Available [address], [address], 04/08/2023 09:09:25 04/07/20 23 04/08/2023 COMPR EHENS UZIEL METAB OLIC PANEL potassium 5.0 mmol/ L 3.5-5. 3 normal Not Available [address], [address], 04/08/2023 09:09:25 04/07/20 23 04/08/2023 COMPR EHENS UZIEL METAB OLIC PANEL chloride 105 mmol/ L 98-110 normal Not Available [address], [address], 04/08/2023 09:09:25 04/07/20 23 04/08/2023 COMPR EHENS UZIEL METAB OLIC PANEL carbon dioxide 26 mmol/ L 20-32 normal Not Available [address], [address], 04/08/2023 09:09:25 04/07/20 23 04/08/2023 COMPR EHENS UZIEL METAB OLIC PANEL calcium 9.5 mg/dL 8.6-10 .3 normal Not Available [address] [place], [address], 04/08/2023 09:09:25 04/07/20 23 04/08/2023 COMPR EHENS UZIEL METAB OLIC PANEL protein, total 7.2 g/dL 6.1-8. 1 normal Not Available [address], [address], 04/08/2023 09:09:25 04/07/20 23 04/08/2023 COMPR EHENS UZIEL METAB OLIC PANEL albumin 4.0 g/dL 3.6-5. 1 normal Not Available [address], [address], 04/08/2023 09:09:25 04/07/20 23 04/08/2023 COMPR EHENS UZIEL METAB OLIC PANEL globulin 3.2 g/dL_ (calc ) 1.9-3. 7 normal Not Available [address], [address], 04/08/2023 09:09:25 04/07/20 23 04/08/2023 COMPR EHENS UZIEL METAB OLIC PANEL albumin/glob ulin ratio 1.3 (calc ) 1.0-2. 5 normal Not Available [address], [address], 04/08/2023 09:09:25 04/07/20 23 04/08/2023 COMPR EHENS UZIEL METAB OLIC PANEL bilirubin, total 0.4 mg/dL 0.2-1. 2 normal Not Available [address], [address], 04/08/2023 09:09:25 04/07/20 23 04/08/2023 COMPR EHENS UZILE METAB OLIC PANEL alkaline phosphatase 83 U/L 35-144 normal Not Available [address], [address], 04/08/2023 09:09:25 04/07/20 23 04/08/2023 COMPR EHENS UZIEL METAB OLIC PANEL AST 14 U/L 10-35 normal Not Available [address], [address], 04/08/2023 09:09:25 04/07/20 23 04/08/2023 COMPR EHENS UZIEL METAB OLIC PANEL ALT 17 U/L 9-46 normal Not Available [address], [address], 04/08/2023 09:09:25 04/07/20 23 04/08/2023 CBC (INCL UDES DIFF/ PLT) white blood cell count 7.6 thous and/u L 3.8-10 .8 normal Not Available [address], [address], 04/08/2023 09:09:26 04/07/20 23 04/08/2023 CBC (INCL UDES DIFF/ PLT) red blood cell count 4.76 bre on/uL 4.20-5 .80 normal Not Available [address], [address], 04/08/2023 09:09:26 04/07/20 23 04/08/2023 CBC (INCL UDES DIFF/ PLT) hemoglobin 14.1 g/dL 13.2-1 7.1 normal Not Available [address], [address], 04/08/2023 09:09:26 04/07/2004/08/2023 CBC (INCL UDES DIFF/ PLT) hematocrit 42.2 % 38.5-5 0.0 normal Not Available [address], [address], 04/08/2023 09:09:26 04/07/20 23 04/08/2023 CBC (INCL UDES DIFF/ PLT) MCV 88.7 fL 80.0-1 00.0 normal Not Available [address], [address], 04/08/2023 09:09:26 04/07/20 23 04/08/2023 CBC (INCL UDES DIFF/ PLT) MCH 29.6 pg 27.0-3 3.0 normal Not Available [address], [address], 04/08/2023 09:09:26 04/07/20 23 04/08/2023 CBC (INCL UDES DIFF/ PLT) MCHC 33.4 g/dL 32.0-3 6.0 normal Not Available [address], [address], 04/08/2023 09:09:04/07/2004/08/2023 CBC (INCL UDES DIFF/ PLT) RDW 13.6 % 11.0-1 5.0 normal Not Available [address], [address], 04/08/2023 09:09:26 04/07/2004/08/2023 CBC (INCL UDES DIFF/ PLT) platelet count 258 thous and/u L 140-40 0 normal Not Available [address], [address], 04/08/2023 09:09:26 04/07/2004/08/2023 CBC (INCL UDES DIFF/ PLT) MPV 11.5 fL 7.5-12 .5 normal Not Available [address], [address], 04/08/2023 09:09:26 04/07/2004/08/2023 CBC (INCL UDES DIFF/ PLT) absolute neutrophils 5685 cells /uL 1500-7 800 normal Not Available [address], [address], 04/08/2023 09:09:26 04/07/20 23 04/08/2023 CBC (INCL UDES DIFF/ PLT) absolute lymphocytes 1186 cells /uL 850-39 00 normal Not Available [address], [address], 04/08/2023 09:09:26 04/07/20 23 04/08/2023 CBC (INCL UDES DIFF/ PLT) absolute monocytes 593 cells /uL 200-95 0 normal Not Available [address], [address], 04/08/2023 09:09:26 04/07/20 23 04/08/2023 CBC (INCL UDES DIFF/ PLT) absolute eosinophils 84 cells /uL 15-500 normal Not Available [address], [address], 04/08/2023 09:09:26 04/07/20 23 04/08/2023 CBC (INCL UDES DIFF/ PLT) absolute basophils 53 cells /uL 0-200 normal Not Available [address], [address], 04/08/2023 09:09:26 04/07/20 23 04/08/2023 CBC (INCL UDES DIFF/ PLT) neutrophils 74.8 % normal Not Available [address], [address], 04/08/2023 09:09:26 04/07/20 23 04/08/2023 CBC (INCL UDES DIFF/ PLT) lymphocytes 15.6 % normal Not Available [address], [address], 04/08/2023 09:09:26 04/07/20 23 04/08/2023 CBC (INCL UDES DIFF/ PLT) monocytes 7.8 % normal Not Available [address], [address], 04/08/2023 09:09:26 04/07/20 23 04/08/2023 CBC (INCL UDES DIFF/ PLT) eosinophils 1.1 % normal Not Available [address], [address], 04/08/2023 09:09:26 04/07/20 23 04/08/2023 CBC (INCL UDES DIFF/ PLT) basophils 0.7 % normal Not Available [address], [address], 04/08/2023 09:09:26 04/07/20 23 04/08/2023 VITAM IN D,25- OH,TO MELINDA,I A vitamin D,25-oh,tota l,ia 42 NG/mL 30-100 normal Vitam in D Statu s 25-OH Vitam in D: Defic iency : <20 ng/mL Insuf ficie ncy: 20 - 29 ng/mL Optim al: > or = 30 ng/mL For 25-OH Vitam in D testi ng on patie nts on D2-garay pplem entat ion and patie nts for whom quant itati on of D2 and D3 fract ions is requi red, the [facility](TM ) 25-OH VIT D, (D2,D 3), LC/MS /MS is recom aram d: order code 02188 (brandie ents >2yrs ). See Note 1 Note 1 For addit ional infor trent lu refer to http: //coni Olivera stDia gnost ics.c om/fa q/FAQ 199 (This link is being provi ded for infor monik gomez/ jame palafox ses only. ) Not Available [address], [address], 04/08/2023 09:09:26 10/27/19 24 10/28/2023 LIPID PANEL , STAND PILY cholesterol, total 207 mg/dL <200 high Not Available [address], [address], 10/28/2023 07:25:25 10/27/19 24 10/28/2023 LIPID PANEL , STAND PILY HDL cholesterol 45 mg/dL > or = 40 normal Not Available [facility] [id number] [place] [address], [id number], 10/28/2023 07:25:25 10/27/19 24 10/28/2023 LIPID PANEL , STAND PILY triglyceride s 267 mg/dL <150 high If a non-f astin g speci men was colle cted, consi diane repea t trigl yceri de testi ng on a fasti ng speci men if clini prateek indic ated. Pradeep jaffe et al. J. of Clin. Lipid ol. 2015; 9:129 -169. Not Available [address], [address], 10/28/2023 07:25:25 10/27/19 24 10/28/2023 LIPID PANEL , STAND PILY LDL-choleste rol 121 mg/dL _(zohreh c) high Refer ence range : <100 Maria Eugenia able range <100 mg/dL for prima ry preve ntion ; <70 mg/dL for patie nts with CHD or diabe tic patie nts with > or = 2 CHD risk facto rs. LDL-C is now calcu lated using the Lisa n-Hop kins brendenu janine n, which is a valid ated novel roger copeland acy than the Fried jaz equat ion in the estim ation of LDL-C . Lisa echeverria SS et al. BASSEM. 2013; 310(1 9): 2061- 2068 (http ://ed ucati on.Qu Danita [employer]. com/f aq/FA Q164) Not Available [facility] [id number] [place] [address], [address], 10/28/2023 07:25:25 10/27/19 24 10/28/2023 LIPID PANEL , STAND PILY chol/HDLC ratio 4.6 (calc ) <5.0 normal Not Available [address] [address] [place], [address], 10/28/2023 07:25:25 10/27/19 24 10/28/2023 LIPID PANEL , STAND PILY non HDL cholesterol 162 mg/dL _(zohreh c) <130 high For patie nts with diabe belen plus 1 major ASCVD risk facto r, treat ing to a non-H DL-C goal of <100 mg/dL (LDL- C of <70 mg/dL ) is consi dered a thera peuti c optio n. Not Available [address], [address], 10/28/2023 07:25:25 10/27/19 24 10/28/2023 COMPR EHENS UZIEL METAB OLIC PANEL glucose 93 mg/dL 65-99 normal Fasti ng refer ence inter ricky Not Available [address] [place], [address], 10/28/2023 07:25:26 10/27/19 24 10/28/2023 COMPR EHENS UZIEL METAB OLIC PANEL urea nitrogen (BUN) 24 mg/dL 7-25 normal Not Available [address], [address], 10/28/2023 07:25:26 10/27/19 24 10/28/2023 COMPR EHENS UZIEL METAB OLIC PANEL creatinine 1.69 mg/dL 0.70-1 .28 high Not Available [address] [address] [place], [address], 10/28/2023 07:25:26 10/27/19 24 10/28/2023 COMPR EHENS UZIEL METAB OLIC PANEL eGFR 43 mL/mi n/1.7 3m2 > or = 60 low Not Available [address] [place], [address], 10/28/2023 07:25:26 10/27/19 24 10/28/2023 COMPR EHENS UZIEL METAB OLIC PANEL BUN/creatini ne ratio 14 (calc ) 6-22 normal Not Available [address], [address], 10/28/2023 07:25:26 10/27/19 24 10/28/2023 COMPR EHENS UZIEL METAB OLIC PANEL sodium 139 mmol/ L 135-14 6 normal Not Available [address], [address], 10/28/2023 07:25:26 10/27/19 24 10/28/2023 COMPR EHENS UZIEL METAB OLIC PANEL potassium 5.3 mmol/ L 3.5-5. 3 normal Not Available [address], [address], 10/28/2023 07:25:26 10/27/19 24 10/28/2023 COMPR EHENS UZIEL METAB OLIC PANEL chloride 105 mmol/ L 98-110 normal Not Available [address], [address], 10/28/2023 07:25:26 10/27/19 24 10/28/2023 COMPR EHENS UZIEL METAB OLIC PANEL carbon dioxide 28 mmol/ L 20-32 normal Not Available [address], [address], 10/28/2023 07:25:26 10/27/19 24 10/28/2023 COMPR EHENS UZIEL METAB OLIC PANEL calcium 9.4 mg/dL 8.6-10 .3 normal Not Available [address], [address], 10/28/2023 07:25:26 10/27/19 24 10/28/2023 COMPR EHENS UZIEL METAB OLIC PANEL protein, total 6.8 g/dL 6.1-8. 1 normal Not Available [address] [place], [address], 10/28/2023 07:25:26 10/27/19 24 10/28/2023 COMPR EHENS UZIEL METAB OLIC PANEL albumin 3.9 g/dL 3.6-5. 1 normal Not Available [address], [address], 10/28/2023 07:25:26 10/27/19 24 10/28/2023 COMPR EHENS UZIEL METAB OLIC PANEL globulin 2.9 g/dL_ (calc ) 1.9-3. 7 normal Not Available [address], [address], 10/28/2023 07:25:26 10/27/19 24 10/28/2023 COMPR EHENS UZIEL METAB OLIC PANEL albumin/glob ulin ratio 1.3 (calc ) 1.0-2. 5 normal Not Available [address], [address], 10/28/2023 07:25:26 10/27/19 24 10/28/2023 COMPR EHENS UZIEL METAB OLIC PANEL bilirubin, total 0.5 mg/dL 0.2-1. 2 normal Not Available [address], [address], 10/28/2023 07:25:26 10/27/19 24 10/28/2023 COMPR EHENS UZIEL METAB OLIC PANEL alkaline phosphatase 81 U/L 35-144 normal Not Available [facility] trend.ly [address] [address] [place], [address], 10/28/2023 07:25:26 10/27/19 24 10/28/2023 COMPR EHENS UZIEL METAB OLIC PANEL AST 13 U/L 10-35 normal Not Available [address], [address], 10/28/2023 07:25:26 10/27/19 24 10/28/2023 COMPR EHENS UZIEL METAB OLIC PANEL ALT 16 U/L 9-46 normal Not Available [address], [address], 10/28/2023 07:25:26 10/27/19 24 10/28/2023 CBC (INCL UDES DIFF/ PLT) white blood cell count 6.7 thous and/u L 3.8-10 .8 normal Not Available [address], [address], 10/28/2023 07:25:27 10/27/19 24 10/28/2023 CBC (INCL UDES DIFF/ PLT) red blood cell count 4.77 bre on/uL 4.20-5 .80 normal Not Available [address], [address], 10/28/2023 07:25:27 10/27/19 24 10/28/2023 CBC (INCL UDES DIFF/ PLT) hemoglobin 14.1 g/dL 13.2-1 7.1 normal Not Available [address], [address], 10/28/2023 07:25:27 10/27/19 24 10/28/2023 CBC (INCL UDES DIFF/ PLT) hematocrit 42.3 % 38.5-5 0.0 normal Not Available [address], [address], 10/28/2023 07:25:27 10/27/19 24 10/28/2023 CBC (INCL UDES DIFF/ PLT) MCV 88.7 fL 80.0-1 00.0 normal Not Available [address], [address], 10/28/2023 07:25:27 10/27/19 24 10/28/2023 CBC (INCL UDES DIFF/ PLT) MCH 29.6 pg 27.0-3 3.0 normal Not Available [address], [address], 10/28/2023 07:25:27 10/27/19 24 10/28/2023 CBC (INCL UDES DIFF/ PLT) MCHC 33.3 g/dL 32.0-3 6.0 normal Not Available [address], [address], 10/28/2023 07:25:27 10/27/19 24 10/28/2023 CBC (INCL UDES DIFF/ PLT) RDW 12.9 % 11.0-1 5.0 normal Not Available [address], [address], 10/28/2023 07:25:27 10/27/19 24 10/28/2023 CBC (INCL UDES DIFF/ PLT) platelet count 261 thous and/u L 140-40 0 normal Not Available [address], [address], 10/28/2023 07:25:27 10/27/19 24 10/28/2023 CBC (INCL UDES DIFF/ PLT) MPV 11.5 fL 7.5-12 .5 normal Not Available [address], [address], 10/28/2023 07:25:27 10/27/19 24 10/28/2023 CBC (INCL UDES DIFF/ PLT) absolute neutrophils 4268 cells /uL 1500-7 800 normal Not Available [address], [address], 10/28/2023 07:25:27 10/27/19 24 10/28/2023 CBC (INCL UDES DIFF/ PLT) absolute lymphocytes 1554 cells /uL 850-39 00 normal Not Available [address], [address], 10/28/2023 07:25:27 10/27/19 24 10/28/2023 CBC (INCL UDES DIFF/ PLT) absolute monocytes 683 cells /uL 200-95 0 normal Not Available [address], [address], 10/28/2023 07:25:27 10/27/19 24 10/28/2023 CBC (INCL UDES DIFF/ PLT) absolute eosinophils 147 cells /uL 15-500 normal Not Available [address], [address], 10/28/2023 07:25:27 10/27/19 24 10/28/2023 CBC (INCL UDES DIFF/ PLT) absolute basophils 47 cells /uL 0-200 normal Not Available [address], [address], 10/28/2023 07:25:27 10/27/19 24 10/28/2023 CBC (INCL UDES DIFF/ PLT) neutrophils 63.7 % normal Not Available [facility] [address], [address], 10/28/2023 07:25:27 10/27/19 24 10/28/2023 CBC (INCL UDES DIFF/ PLT) lymphocytes 23.2 % normal Not Available [address], [address], 10/28/2023 07:25:27 10/27/19 24 10/28/2023 CBC (INCL UDES DIFF/ PLT) monocytes 10.2 % normal Not Available [facility] [address], [address], 10/28/2023 07:25:27 10/27/19 24 10/28/2023 CBC (INCL UDES DIFF/ PLT) eosinophils 2.2 % normal Not Available [facility] [address], [address], 10/28/2023 07:25:27 10/27/19 24 10/28/2023 CBC (INCL UDES DIFF/ PLT) basophils 0.7 % normal Not Available [facility] [address], [address], 10/28/2023 07:25:27 10/27/19 24 10/28/2023 T4, FREE T4, free 0.9 NG/dL 0.8-1. 8 normal Not Available [facility] [address], [address], 10/28/2023 07:25:28 10/27/19 24 10/28/2023 TSH TSH 1.62 mIU/L 0.40-4 .50 normal Not Available [facility] [address], [address], 10/28/2023 07:25:29 10/27/19 24 10/28/2023 PSA, TOTAL PSA, total 0.42 NG/mL < or = 4.00 normal The total PSA value from this assay syste m is stand ardiz ed again st the WHO stand pily. The test resul t will be appro ximat megan 20% lower when jr red to the equim olar- stand ardiz ed total PSA (Alonso man Coult er). Jr rison of seria l PSA resul ts shoul d be inter prete d with this fact in mind. This test was perfo rmed using the [employer] chemi lumin escen t metho d. Value s obtai logan from diffe rent assay metho ds canno t be used inter shah eably . PSA level s, regar dless of value , shoul d not be inter prete d as absol [place] evide nce of the prese nce or absen ce of disea se. Not Available [facility] [employer] [place] [address] [address] [place], [address], 10/28/2023 07:25:30 01/19/20 23 01/18/2023 US, kidne y No observ ation record ed. [address], [place], [address], 01/18/2023 16:01:51 03/30/20 23 XR, shoul diane, 2 or more view [facility] [address] [facility] [place] [address] Patien t Name: LEXUS GRAFF CH Access ion #: [id number] Sex: M : 1949 0 Dictat ed By: Mika Patel Attend ing Physic lauren: GEOVANNA JOSE CE Orderi ng Physic lauren: GEOVANNA JOSE CE Exam Date: 2022 10:25 AM Exam Name: XR SHOULD ER LT 2V+ Admitt ing Diagno sis(es ): Exam: XR SHOULD ER LT 2V+ Clinic al Indica tion: . Left-s ided should er pain Compar kristy: None. FINDIN GS: The 3 views of the should er show normal alignm ent at the glenoh umeral joint. There are no fractu res or disloc ations . The acromi oclavi cular joint and coraco clavic ular spaces are narrow ed with osteop hyte format ion the acromi on and coraco id proces ses appear unrema rkable The visual ized scapul a and clavic le are unrema rkable . There are no radiop aque foreig n bodies or soft tissue swelli ng. If there is furthe r concer n, follow up radiog raphs or MRI of the should er may be perfor med for comple te assess ment. IMPRES NAM: 1. No fractu res or disloc ations of the left should er. Modera te arthri tic change s are noted. Electr onical ly Signed by: Mika Patel at 2022 11:30: 33 AM Page [address] (Imaging) [address] [facility] [place], [address], 03/30/2023 12:40:13 08/24/19 24 08/20/2023 lab* No observ ation record ed. [email or web address] Not Available 2023 15:57:17 08/24/19 lab* No observ ation record ed. [email or web address] Not Available 2023 15:57:17 12/30/19 24 12/30/2023 XR, abdom en No observ ation record ed. [address], [place], [address], 12/31/2023 06:09:30 01/20/20 24 01/20/2024 CT, abdom en + pelvi s, w/o contr ast No observ ation record ed. [place] [address] [facility] [address], [place], [address], 01/20/2024 12:45:16 03/21/20 24 02/28/2024 lab* No observ ation record ed. [email or web address] Not Available 2023 12:53:11 Result Notes None recorded. Problems Name Problem SNOMED Code Status Onset Date Resolution Date Notes Provider Name and Address Organization Details Recorded Time Renewal of prescripti on Active 2021 Not Available [facility] 3 17:23:54 Irritable bowel syndrome 08656128 Active Not Available [facility] 3 17:23:54 Family history of colorectal cancer 8267346517686 Active 2018 Not Available [facility] 3 17:23:54 Insomnia 395810702 Active 2022 Not Available [facility] 3 17:23:55 Family history of neoplasm 174801952 Active Not Available [facility] 3 17:23:55 Pure hyperchole sterolemia 375344669 Active Not Available [facility] 3 17:23:55 Disorder of prostate 15620829 Active 2022 Not Available [facility] 3 17:23:55 Chronic pain syndrome 034549787 Active 2019 Not Available [facility] 3 17:23:55 Acute urinary tract infection 242442552 Active 2021 Not Available [facility] 3 17:23:55 Screening for malignant neoplasm of prostate Active 2021 Not Available [facility] 3 17:23:55 Herniation of nucleus pulposus 14468148 Active Not Available [facility] 3 17:23:55 Kidney stone 99406611 Active 2018 Not Available [facility] 3 17:23:55 Chronic renal failure 06884603 Active 2022 Not Available [facility] 3 17:23:55 Serum creatinine above reference range 443596692 Active 2022 Not Available [facility] 3 17:23:55 Pain of left shoulder joint 6083769486945 9109 Active 2022 Not Available [facility] 3 17:23:54 Obese class I 9911195769072 07 Active 2023 Mitul Jose MD [address] [facility] [address], [place], [address] , [employer] 4 10:54:18 Cholelithi asis without obstructio n 86186826 Active 2023 Mitul Jose MD [address], [place], [address] , [employer] 4 14:23:35 Problem Notes None recorded. Procedures Surgical History Date Name Laterality Status Provider Name and Address Organization Details Recorded Time 3 Medicare Wellness CPT Code, subsequent completed Liza Baker RN [facility] [employer] 03/30/2023 10:41:46 Imaging Results Imaging Date Name Status LastModified by Organiz ation Details LastModified Time 01/18/2023 US, [email or web address] [address] [facility] [address], [address], 01/18/2023 16:01:51 03/30/2023 XR, shoulder, 2 or more view completed [email or web address] [facility] (Imaging) [address] [facility] [place], [address], 03/30/2023 12:40:13 08/20/2023 lab* completed [email or web address] Information no t available 08/24/2023 15:57:17 08/24/2023 lab* completed Information no t available 08/24/2023 15:57:17 12/30/2023 XR, abdomen completed [address] [facility] [address], [place], [address], 12/31/2023 06:09:30 01/20/2024 CT, abdomen + pelvis, w/o contrast completed [address], [place], [address], 01/20/2024 12:45:16 02/28/2024 lab* completed [email or web address] Information no t available 03/21/2024 12:53:11 Procedure Notes None recorded. Medical Equipment None Reported. Medications Name Sig Start Date Stop Date Status Note LastModified by Organization Details LastModified Time atorvastat in 40 mg tablet Take 1 tablet by mouth once daily 2023 active Not Available Not Available Not Avai lable trazodone 50 mg tablet Take 1 tablet every day by oral route at bedtime. 03/14 completed Not Available Not Available Not Available hydrocodon e 5 mg-acetami nophen 325 mg tablet TAKE 1 TABLET BY MOUTH EVERY 6 HOURS FOR UP TO 3 DAYS NEEDED FOR PAIN active Not Available Not Available No t Available chlorthali done 25 mg tablet TAKE 1 TABLET BY MOUTH DAILY IN THE MORNING 2023 active Not Available Not Available Not Avai lable ciprofloxa danuta 500 mg tablet TAKE 2 TABLETS BY MOUTH ONCE DAILY 09/28 completed Not Available Not Available Not Available sulfametho xazole 800 mg-trimeth oprim 160 mg tablet Take 1 tablet every 12 hours by oral route. 09/05 completed Not Available Not Available Not Available aspirin 81 mg tablet,del ayed release Take 1 tablet every day by oral route. 03/14 completed Not Available Not Available Not Available simvastati n 40 mg tablet TAKE 1 TABLET BY MOUTH ONCE DAILY 01/21 completed Not Available Not Available Not Available amoxicilli n 875 mg tablet TAKE 1 TABLET BY MOUTH TWICE DAILY UNTIL GONE 03/07 completed Not Available Not Available Not Available alprazolam 0.25 mg tablet TAKE 1 TABLET BY MOUTH 1 TIME BEFORE PROCEDUR E active Not Available Not Available No t Available tamsulosin 0.4 mg capsule active Not Available Not Available Not Available hydrocodon e 7.5 mg-acetami nophen 325 mg tablet TAKE 1 TABLET BY MOUTH EVERY 6 HOURS NEEDED FOR PAIN 09/28 completed pt states never picked up from pharm-- didnt need med Not Available Not Available Not Available tadalafil 20 mg tablet TAKE 1 TAB BY MOUTH ONE HOUR BEFORE SEXUAL ENCOUNTE R 2023 active Not Available Not Available Not Avai lable BinaxNOW COVID-19 Ag Self Test kit TEST DIRECTED TODAY 03/24 completed Not Available Not Available Not Available Vitals Date Recorded Body mass index (BMI) Body mass index (BMI) Body mass index (BMI) Body height Body height Body height Oxygen saturation Oxygen saturation in Arterial blood by Pulse oximetry Oxygen saturation Oxygen saturation in Arterial blood by Pulse oximetry Oxygen saturation Oxygen saturation in Arterial blood by Pulse oximetry Pain severity - 0-10 verbal numeric rating [Score] - Reported Heart rate Heart rate Heart rate Body temperature Body temperature Body temperature Body weight Body weight Body weight Systolic blood pressure Diastolic blood pressure Systolic blood pressure Diastolic blood pressure Systolic blood pressure Diastolic blood pressure Provider Name and Address Organization Details Last Updated DateTime 3 30.6 kg/m2 30.8 kg/m2 30.7 kg/m2 179.07 cm 179.07 cm 179.07 cm 97 % 97 % 97 % 97 % 96 % 96 % 0 70 /min 68 /min 103 /min 97 [degF] 95.5 [degF] 97 [degF] 11855.9 5 g 32181.1 4 g 01367.5 4 g 142 mm[Hg] 84 mm[Hg] 120 mm[Hg] 60 mm[Hg] 138 mm[Hg] 84 mm[Hg] Not Available [facility] 3 14:46:45 Date Recorded Body height Body mass index (BMI) Body weight Heart rate Body temperature Oxygen saturation Oxygen saturation in Arterial blood by Pulse oximetry Systolic blood pressure Diastolic blood pressure Provider Name and Address Organization Details Last Updated DateTime 3 179.07 cm 31 kg/m2 58939.7 3 g 102 /min 97 [degF] 94 % 94 % 122 mm[Hg] 78 mm[Hg] Melissa Niya [facility] [employer] [facility] 3 10:37:07 Date Recorded Pain severity - 0-10 verbal numeric rating [Score] - Reported Provider Name and Address Organization Details Last Updated DateTime 03/30/2023 0 Liza Baker RN [facility] [employer] [facility] 03/30/2023 10:42:02 Date Recorded Body height Body weight Heart rate Body temperature Oxygen saturation Oxygen saturation in Arterial blood by Pulse oximetry Body mass index (BMI) Systolic blood pressure Diastolic blood pressure Provider Name and Address Organization Details Last Updated DateTime 4 180.34 cm 985825. 51 g 93 /min 97.4 [degF] 95 % 95 % 31 kg/m2 128 mm[Hg] 88 mm[Hg] Courtney Olvera Can [facility] [employer] [facility] 4 10:33:27 Date Recorded Heart rate Systolic blood pressure Diastolic blood pressure Provider Name and Address Organization Details Last Updated DateTime 02/24/2024 96 /min 130 mm[Hg] 94 mm[Hg] Courtney Olvera Can [facility] [employer] [facility] 02/24/2024 11:26:31 Date Recorded Heart rate Systolic blood pressure Diastolic blood pressure Provider Name and Address Organization Details Last Updated DateTime 03/14/2024 86 /min 150 mm[Hg] 90 mm[Hg] Courtney Olvera Can [facility] 03/14/2024 11:13:40 Social History Question Answer Notes LastModified by Organizat ion Details LastModified Time Tobacco Smoking Status Never Smoker Not Available [facility] 10/07/2022 14:45:23 Do You Have An Advance Directive? No [id number] Information not available 10/07/2022 What Is Your Level Of Alcohol Consumption? Occasional [id number].[id number] Information not available 10/07/2022 Are You Blind Or Do You Have Difficulty Seeing? No MIGRATION.699261 3186 Information not available 10/07/2022 Are You Deaf Or Do You Have Serious Difficulty Hearing? No MIGRATION.863215 0428 Information not available 10/07/2022 What Type Of Diet Are You Following? REGULAR MIGRATION.957059 1026 Information not available 10/07/2022 Have There Been Any Changes To Your Family Or Social Situation? No MIGRATION.843291 1825 Information not available 10/07/2022 What Is The Fluoride Status Of Your Home? Unknown MIGRATION.[id number] Information not available 10/07/2022 Are There Any Guns Present In Your Home? Yes MIGRATION.[id number] Information not available 10/07/2022 Do You Use Insect Repellent Routinely? No MIGRATION.[id number] 8888 Information not available 10/07/2022 Where Do You Live? [place] MIGRATION.[id number] 6438 Information not available 10/07/2022 Guns Present In The Home? Yes [email or web address] Information not available 03/30/2023 Are You Able To Care For Yourself? Yes [email or web address] Information not available 03/30/2023 Are You Blind Or Do Yo Have Difficulty Seeing? No [email or web address] Information not available 03/30/2023 Are You Deaf Or Do You Have Serious Difficulty Hearing? No [email or web address] Information not available 03/30/2023 Live Alone Of With Others? Alone Information not available 03/30/2023 Do You Have A Medical Power Of Realty Specialist? No MIGRATION.[id number] 2675 Information not available 10/07/2022 What Was The Date Of Your Most Recent Tobacco Screening? 03/30/2023 [email or web address] Information not available 03/30/2023 Do You Have Any Pets? No MIGRATION.110446 3166 Information not available 10/07/2022 Do You Use Your Seat Belt Or Car Seat Routinely? Yes MIGRATION.227164 0774 Information not available 10/07/2022 Do You Have Smoke And Carbon Monoxide Detectors In Your Home? Yes MIGRATION.277362 2336 Information not available 10/07/2022 Are You Passively Exposed To Smoke? No MIGRATION.018455 2958 Information not available 10/07/2022 Are There Any Smokers In Your House? No MIGRATION.903152 7466 Information not available 10/07/2022 Do You Use Sunscreen Routinely? No MIGRATION.352026 4188 Information not available 10/07/2022 Have You Recently Traveled Abroad? No MIGRATION.185678 0345 Information not available 10/07/2022 Do You Or Have You Ever Used Any Other Forms Of Tobacco Or Nicotine? No MIGRATION.104878 5796 Information not available 10/07/2022 Sex: Unknown Functional Status Question Answer Note LastModified by Organizat ion Details LastModified Time Do you have difficulty walking or climbing stairs? No MIGRATION.[id number] 026 Information not available 10/07/2022 Do you have transportation difficulties? No MIGRATION.[id number] 026 Information not available 10/07/2022 Are you able to walk? YESWOREST MIGRATION.4356519 026 Information not available 10/07/2022 Do you have difficulty doing errands alone? No MIGRATION.7156193 026 Information not available 10/07/2022 Are you able to care for yourself? Yes MIGRATION.1789854 026 Information not available 10/07/2022 Do you have difficulty dressing or bathing? No MIGRATION.[id number] 026 Information not available 10/07/2022 What is your exercise level? Occasional MIGRATION.7329351 026 Information not available 10/07/2022 Mental Status Question Answer Note LastModified by Organizat ion Details LastModified Time Do you have difficulty concentrating, remembering or making decisions? No MIGRATION.[id number] Information not available 10/07/2022 Family History Nothing Reported Notes:Mother 80 fro m lymphoma Father Living 83 years old 1 Brothers 1 Living 1 Sisters 1 Living Father Hx Ca Colon Sister Hx High Cholesterol (1) Brother Hx High Cholesterol (1) Medical History Condition Response BLINDNESS N NERVE DISEASE N RHEUMATIC FEVER N BLADDER PROBLEMS N KIDNEY STONES N MRSA N OTHER # 1 N POLIO N LUNG DISEASE/DISORDER N HISTORY OF DRUG ABUSE N RADIATION / CHEMOTHERAPY N COPD N Other # 2 N BLOOD DISEASES N EAR OR HEARING PROBLEMS N MUMPS N SHINGLES N DEPRESSION (INCLUDING POST ) N BOWEL PROBLEMS N STROKE/TIA N ULCERS N BENIGN PROSTATIC HYPERPLASIA N MEASLES N HYPOTENSION N MYOCARDIAL INFARCTION N OBESITY N GERD/NAUSEA N ANEURYSM N URINARY/BLADDER/KIDNEY PROBLEMS N CORONARY ARTERY DISEASE (CAD) N ADDICTION CONCERNS N ENDOMETRIOSIS N Impotence N USE OF BLOOD THINNERS N SKIN PROBLEMS N GASTROINTESTINAL DISORDER N PERIPHERAL VASCULAR DISEASE N MUSCLE,JOINT OR BONE PROBLEMS N GASTROINTESTINAL BLEEDING N BLOOD CLOTS N ASTHMA N CATARACTS N ERECTILE DYSFUNCTION N VARICOSITIES N GI PROBLEMS N Low Testosterone N INFERTILITY N AIDS/HIV N CHEMOTHERAPY / RADIATION N LIVER DISEASE N MALE HYPOGONADISM N HYPERTENSION N Deficiency N TOURETTE'S N ANXIETY DISORDER N BLOOD TRANSFUSION N ANEMIA/BLOOD DISORDER N CHRONIC EAR INFECTIONS N BRONCHITIS N TUBERCULOSIS N GLAUCOMA N FOOT PROBLEM N DIVERTICULITIS N CHICKENPOX N SLEEP APNEA N INFECTIOUS DISEASE N HEART ARRHYTHMIA N PROSTATE N INSOMNIA N HIGH CHOLESTEROL / HYPERLIPIDEMIA Y HYPERTHYROIDISM N EYE PROBLEMS N EDEMA N CHRONIC PAIN SYNDROME N HYPOTHYROIDISM N CAROTID BLOCKAGE N CONSTIPATION N BACK / NECK PROBLEMS Y HAVE YOU BEEN HOSPITALIZED OR SEEN IN [facility] IN THE PAST YEAR ? N ATHEROSCLEROSIS N BREAST PROBLEMS N DIALYSIS N ECZEMA N OSTEOPOROSIS N ARTHRITIS N NO SIGNIFICANT PAST MEDICAL HISTORY N APPENDICITIS N DIABETES, TYPE N BAD TEETH N ENT N HEARTBURN / REFLUX N AUTISM SPECTRUM DISORDER (ASD) N HEPATITIS / LIVER DISEASE N GOUT N SLEEP DISORDER N ALZHEIMER'S DISEASE N Brain Problems N HERPES N DEMENTIA N HEADACHES/MIGRAINES N SEIZURES/EPILEPSY N VASCULAR DISEASE N PACEMAKER N Blood Disorder N DIZZINESS N HEART DISEASE/HEART PROBLEMS N KIDNEY DISEASE N MULTIPLE SCLEROSIS N CARDIAC ARRHYTHMIA N CANCER: SPECIFY N ATRIAL FIBRILLATION N Gall Stones N PULMONARY EMBOLISM N AUTOIMMUNE DISEASE N Immunizations Vaccine Type Date Status Note Provider Nam e and Address Organization Details Recorded Time SARS-COV-2 (COVID-19) vaccine, UNSPECIFIED 1 completed Not Available [facility] 06/08/2023 17:23:55 SARS-COV-2 (COVID-19) vaccine, UNSPECIFIED 1 completed Not Available [facility] 06/08/2023 17:23:55 Influenza, high-dose, quadrivalent, PF 0 completed Not Available [facility] 06/08/2023 17:23:55 Influenza, high-dose, trivalent, PF 9 completed Not Available [facility] 06/08/2023 17:23:55 Past Encounters Encounter ID Performer Location Encounter Start Date Encounter Closed Date Diagnosis/Indication Diagnosis SNOMED-CT Code Diagnosis ICD10 Code Diagnosis Note [id number] [facility] [place] [address] 03/07/2021 00:00:00 03/07/2021 12:58:15 [id number] [facility] [place] [address] 09/05/2021 00:00:00 09/05/2021 11:36:06 [id number] [facility] [place] [address] [place] [address] [place] [address] 03/24/2022 00:00:00 03/24/2022 10:58:29 [id number] [facility] [place] [address] [place] [address] [place] [address] 09/22/2022 00:00:00 09/22/2022 11:08:59 [id number] Mitul Jose MD [facility] [place] [address] [place] [address] [place] [address] 03/30/2023 10:24:04 03/30/2023 11:13:02 Adult health examination 660507552 Z00.00 Screening for disorder 449146511 Z13.9 Chronic pain syndrome 37 3748298 G89.4 Pure hypercholesterolemia 275705760 E78.00 Chronic renal failure 90 902176 N18.9 Pain of le ft shoulder joint [id number] 0744794 M25.270 [id number] Mitul Jose MD [facility] [place] [address] [place] [address] y , [place] [address] 09/28/2023 10:22:44 09/28/2023 11:06:02 Pure hypercholesterolemia 793879841 E78.00 Family his tory of colorectal cancer 6538151233 104 Z80.0 Kidney stone 42211619 N2 0.0 Obese class I 0781346437 12333 E66.9 Disorder of prostate 302 32646 N42.9 Health Concerns Section Related Observation LastModified by Organization Detai ls LastModified Time None Recorded Concern Status LastModified by Organization Details LastModified Time None Recorded Advance Directives Directive N: Payers Encounter Date Sequence Insurance Name Policy Number Policy Jolly Covered Member ID Jolly Member ID Guarantor Name 03/30/2023 1 [employer] (MEDICARE REPLACEMENT PPO) [id number] 2 Lexus Poole [id number] Lexus Poole 09/28/2023 1 [employer] (MEDICARE REPLACEMENT PPO) [id number] 2 Lexus Poole [id number] Lexus Poole Notes Date Note Type Note Provider Name and Address Organization Details Recorded Time 03/30/20 23 text/htm l Patient Name: Lexus PooleDate Of Service: Wednesday ( 03.30.2023 ): 1950 Age: 72 There has been approximately a 2 lb weight gain since 09/22/2022. This represents approximately a .9% change in weight. Weight change attributable to lifestyle changes. Vital Signs:Blood Pressure: Sitting Rt. Arm 122/78Pulse: Sitting 102 /min and RegularRespirations: 12Height 70.5 in or 1.8 mWeight 219 lb or 99.3 kgBMI 31.0Temperature: 97 F or 36.1 CPulse Oximetry: 94 % at rest on no oxygen Chief Complaint: Addressed in HPI Problems or conditions discussed in the HPI were the only ones reviewed during the encounter.Only social and family history addressed in the HPI were reviewed during this encounter. A significant, separate E/M service was performed to evaluate the current and new problems. Attendant(s): None Constitutional and Systemic Symptoms: none Medication Reconciliation: from medication list. History of Present Illness Reviewed the findings of the preventative health visit. Addressed all areas with the patient, patient's family or caregivers. Preventative examinations and testing immunizations - vaccinations, colonic neoplasm screening and PSA all reviewed and ordered where patient was amenable to the recommendations. Cognitive function was normal. Depression addressed and where necessary medications were adjusted or instituted. End of life and living will briefly discussed with patient and where these can be filled out and legally executed. Other blood and imaging studies were ordered if considered necessary. Other recommendations may be found in the encounter note. #1. Type II Hypercholesterolaemia: Currently taking medication and tolerating well. No interval complaints of any muscle pain or arthralgia. No significant liver changes with medications. Last lipid panel: fair control. Therapy reviewed regarding treatment of cholesterol management and include diet and Lipitor. #2. History of chronic renal failure currently doing well. Currently is followed by a pediatric immunologist. Stage: CKD-3a. Albumin Stage: A1. There has been no change in urine output or color. No fever or chills. #3. Pain and discomfort left shoulder and arm duration approximately 2-3 weeks. No history of any type of trauma. Pain does radiate down from the shoulder down to the level of the elbow and slightly into the forearm. No muscle weakness no change in reflexes no focal neurological signs. Will obtain radiographic studies of the shoulder etc..: #4. Chronic pain management for chronic cervical, lumbar and generalized joint pain Since last examination somewhat improved Interval Testing: noneHas tried NSAIDS Contraindicated because of his renal disease.. Pain Description: intermittent, exacerbated by activity and interferes with enjoyment and ability to perform activities of daily living. Currently seeing or has seen in the past a Driver Examiner: No .Pain - Enjoyment of Life - General Activity ScalePain on Average: 4Enjoyment of Live: 4General Activity: 5Enjoyment of Life - General Activity Scale: 5Currently regimen consists of [place] on an intermittent basis. as prescribed with no evidence of abuse or self prescribing. Current Average Morphine Milligram Approximate Equivalent: 30 does not take the medication on a daily basis nor does she take normally four per day. This is the maximum amount he would be allowed per day mg approximated if taking full dosage daily. Recommend: NA.Benzodiazepines or other hypnotics: no.Alternative pain management modalities (acupuncture - behavior therapy- additional PT - SNRIs) have been discussed and have either been tried in the past or not acceptable alternatives to patient or not available in our location.Will kept medications the same.Urine Testing: not indicated and this time.Controlled substance database yes and no discrepancies or multiple prescribers noted. Pill counts when available have been acceptable. No other signs of any abuse.Patient reports condition is stable and is able to function with the medication. Denies any misuse or adverse effects.TREATMENT OBJECTIVE: Enhance ability to manage pain independently, improved function and sustain quality of life. Recommendations or alternative therapies and lifestyle changes are discussed on each visit. Has shown improvement inf functionality. Has been educated on the side effects,risks and any black box warnings. Has verbalized the dangers of some of the medications regarding driving and cooperating heavy machinery and have advised against this. #5. Hx of obesity. Currently Class 1 Obesity BMI 30-34.99. Has tried numerous dietary support and supplements with no benefit. Instructed on the health consequences of the obese status particularly cancer - diabetes and heart disease. Discussed new modalities of weight loss including GLP-1 medications that are used to treat diabetes. Potential candidate for bariatric surgery: No. Wishes to be evaluated by Dietary: No and was offered to be evaluated and instructed by skilled nursing facility counselor on weight loss diet.Medication List Reviewed and Reconciled 03/30/2023Norco 325 MG-7.5 MG (TABLET - ORAL) Every Six Hours As NeededAspirin 81 MG One Daily- Pt Not TakingLipitor 80 MG (TABLET - ORAL) Take One Tablet DailyVaccination and Idfwsokgujed1750-23 Covid Acrsxi6193-58 InfluenzaSurgical HistoryLeft Hip Resurfacing, TonsillectomyPreventative Testing Confirmed by Our Gqrqkec0710/14/2022 ALBUMIN 4.0 G/DL10/14/2022 PSA 0.70 NG/ML03/22/2019 COLONOSCOPY (5 YEARS) HAIC 5.5 % OF TOTAL HGBSocial HistorySOCIAL HISTORY:Does not smoke cigarettes. Drinking Hx: < 6 beers per week, 2 Cups of coffee per day, 1 Cup of tea per day. Exercise: RegularlySexual Hx: Sexually ActiveOccupation: Steel workerFamily HistoryFAMILY HISTORY:Mother 80 from lymphomaFather 89 years old1 Brothers 1 Living1 Sisters 1 LivingFather Hx: Ca ColonSister Hx: High Cholesterol (1)Brother Hx: High Cholesterol (1) Mitul Jose MD [address] [facility], [place] [address], [place], [address], [place] [facility] 03/30/2023 11:06:12 09/28/19 24 text/htm l Patient Name: Lexus PadillaChuyte Of Service: Wednesday ( 09.28.2023 ): 1950 Age: 73 There has been approximately a 3 lb weight gain since 03/30/2023. This represents approximately a 1.4% change in weight. Weight change attributable to lifestyle changes. Vital Signs:Blood Pressure: Sitting Rt. Arm 128/88Pulse: Sitting 93 /min and RegularRespiratory Rate: 12Height 71 in or 1.8 mWeight 222 lb or 100.7 kgBMI 31.0Temperature: 97.4 F or 36.3 CPulse Oximetry: 95 % at rest on no oxygen Chief Complaint: Addressed in HPI Problems or conditions discussed in the HPI were the only ones reviewed during the encounter.Only social and family history addressed in the HPI were reviewed during this encounter. Attendant(s): NoneConstitutional and Systemic Symptoms:none Medication Reconciliation: from medication list. History of Present Illness #1. His chronic renal stones left kidney. Status post left nephrectomy from August. Clinically doing quite well. No interval complaints of any residual pain, discomfort or any other genitourinary complaints.: #2. Type II Hypercholesterolaemia: Currently taking medication and tolerating well. No interval complaints of any muscle pain or arthralgia. No significant liver changes with medications. Last lipid panel: fair control. Therapy reviewed regarding treatment of cholesterol management and include diet and Lipitor. #3. Family history of colorectal cancer will be due for colonoscopy later this year. No history of any associated chin bowel habits, rectal bleeding or any other gastrointestinal complaints.: #4. Hx of obesity. Currently Class 1 Obesity BMI 30-34.99. Has tried numerous dietary support and supplements with no benefit. Instructed on the health consequences of the obese status particularly cancer - diabetes and heart disease. Discussed new modalities of weight loss including GLP-1 medications that are used to treat diabetes. Potential candidate for bariatric surgery: No. Wishes to be evaluated by Dietary: No and was offered to be evaluated and instructed by skilled nursing facility counselor on weight loss diet. Active Medication ListAspirin 81 MG One Daily- Pt Not TakingLipitor 80 MG (TABLET - ORAL) Take One Tablet Daily Vaccination and Xqgxhzbofuks8732-80 Covid Oieyzs8506-23 Influenza Surgical Saddxbx5333-36 Lt. Vhthjkaeez1543-04 Left Hip Yqpkjihqmol4551-01 Tonsillectomy Preventative Testing Confirmed by Our Smxwkcy5608/19/2023 HAIC 5.708/ ALBUMIN 4.0 G/DL N010/14/2022 PSA 0.70 NG/ML N003/22/2019 COLONOSCOPY (5 YEARS) 03/22/2024 Social HistorySOCIAL HISTORY:Does not smoke cigarettes. Drinking Hx: < 6 beers per week, 2 Cups of coffee per day, 1 Cup of tea per day. 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 09/28/2023 10:57:48
--- OUTSIDE RECORDS SUMMARY | 2024-09-19 11:19 | XMS_ITS | Referral Summary ---
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 Gender Identity Not on file Sexual Orientation [...] 03/23/2024 10:06 AM CDT Plan of Treatment Not on file Medical Devices Implanted Type Area Emergency Room Tech Device Identifier Shelf Expiration Date Model / Serial / Lot [employer] Airam Contour 6fr 26cm Large Inner Lumen Low Profile Bladder [employer] Free 180-223 - [id number] Implanted:Qty: 1 on 03/23/2024 by Karlos Bailey MD at [facility] Right: [employer] Airam 10/24/2026 [id number] / / [id number] Explanted Type Area Emergency Room Tech Device Identifier Shelf Expiration Date Model / Serial / Lot [employer] Airam Contour 6fr 26cm Large Inner Lumen Low Profile Bladder Ocho[employer] T[employer] Latex Free 180-223 - [id number] Implanted:Qty: 1 on 03/03/2024 by Karlos Bailey MD at [facility] Explanted:Qty: 1 on 03/23/2024 at [facility] Right: [facility] [employer] 09/17/2026 [id number] / / [id number] Insurance AET MEDICARE AET MEDICARE Advance Directives For more information, please contact: [phone] * Full Code (Latest Code Status on File) Date Activated Date Inactivated Comments 08/31/2023 6:40 PM 09/01/2023 6:26 PM Care Teams Citrus Picker Relationship Specialty Start Date End Date Yovani Jose MD PCP - General 10/14/18 [place] [address] [place] [address] Consulting Physician Urology 09/01/23
[2024-09-19 11:37] LABS: Hematocrit 43.6 % (42.0-52.0); Hemoglobin 14.4 g/dL (14.0-18.0); Mean Corpuscular Hemoglobin 30.2 pg (26-34); Mean Corpuscular Volume 91.4 fl (80-100); Mean Platelet Volume 10.7 fl (7.4-10.4); Platelet Count Result 226 k/mm3 (150-375); Red Blood Count 4.77 M/mm3 (4.6-6.20); Red Cell Distribution Width 13.1 % (11.5-14.5); White Blood Count 6.5 K/mm3 (4.5-10.0)
[2024-09-19 11:46] LABS: Add Urine Microscopic? NO; Appearance Urine Clear (Clear); Bilirubin Urine Negative (Negative); Blood Urine Negative (Negative); Color Urine Yellow (Yellow); Glucose Urine UA Negative (Negative); Ketones Urine Negative (Negative); Leukocyte Esterase Ur Negative LEU/UL (Negative); Nitrate Urine Negative (Negative); Protein Urine Negative (Negative); Specific Grav Ur 1.018 (1.001-1.035); Urobilinogen Urine 0.2 mg/dL (<2.0)
[2024-09-19 11:51] LABS: Albumin Level 4.1 g/dL (3.5-5.1); Anion Gap 10 mmol/L (4-12); Blood Urea Nitrogen 26 mg/dL (9-20); Calcium 9.4 mg/dL (8.4-10.2); Carbon Dioxide 23 mmol/L (22-30); Chloride 105 mmol/L (98-107); Estimated Glomerular Filt Rate 37; Glucose 112 mg/dL (65-110); Magnesium 1.8 mg/dL (1.6-2.3); Phosphorus 3.2 mg/dL (2.5-4.5); Potassium 4.1 mmol/L (3.4-5.0); Sodium 138 mmol/L (137-145)
[2024-09-20 15:23] LABS: Cystatin C 2.14 mg/L (0.52-1.16); eGFR 27 (> OR = 60)
== END 2024-09-19 10:09 | disposition home or self-care (01) ==
LOC: ANHLAB 10:16
PROVIDERS: PCP Internal Medicine; Visit Provider Internal Medicine Nephrology
DX: N20.0 Calculus of kidney (principal); N40.0 Benign prostatic hyperplasia without lower urinary tract symptoms; I12.9 Hypertensive chronic kidney disease with stage 1 through stage 4 chronic kidney disease, or unspecified chronic kidney disease; N18.30 Chronic kidney disease, stage 3 unspecified; E78.00 Pure hypercholesterolemia, unspecified
CPT/HCPCS: 36415; 80069; 81003; 82340; 82610; 83735; 85027

== ENCOUNTER 2024-12-06 10:41 | Outpatient (CLI) | payer MEDICARE, SELFPAY ==
--- OUTSIDE RECORDS SUMMARY | 2024-12-06 12:00 | XMS_ITS | Data Portability ---
Author Organization [place] [facility] [employer], Main Office Address [address] [place] [address] Care Team Providers Care Physical Therapy Assistant Instructor Name Role Phone MITUL JOSE Primary Care Provider [phone] Assessment No assessment recorded. Plan of Treatment Reminders Order Date Submit Date Provider Last Modified By Organization Details Last Modified Time Details Appointments None recorded. Lab lipid panel, serum 025 025 [facility] - Outpatient Lab, [address] [place], [address], 5 13:16:44 PSA, serum or plasma 025 025 [id number] [facility] - Outpatient Lab, [address] [place], [address], 5 13:16:44 lipid panel, serum 024 024 [id number] [facility] - Outpatient Lab, [address] [place], [address], 4 17:28:17 CMP, serum or plasma 024 024 [id number] [facility] - Outpatient Lab, [address] [place], [address], 4 17:28:18 TSH, serum or plasma 024 024 [facility] - Outpatient Lab, [address] [place], [address], 4 17:28:18 CBC w/ auto diff 024 02/20/2 024 [id number] [facility] Outpatient Lab, [address] [place], [address], 4 17:28:18 T4, free, serum [id number] [place] [address] Outpatient Lab, [address] [place], [address], 4 17:28:18 PSA, serum or plasma [id number] [place] [address] Outpatient Lab, [address] [place], [address], 4 17:28:18 CMP, serum or plasma 023 023 [facility] Lab, [address] [place], [address], 3 09:09:25 CBC w/ auto diff 023 023 [facility] Outpatient Lab, [address] [place], [address], 3 09:09:26 phosphoru s, serum or plasma 023 023 [facility] Lab, [address] [place], [address], 3 09:09:23 PTH (parathyr oid hormone), intact, serum or plasma [id number] Outpatient Lab, [address] [place], [address], 3 14:49:16 uric acid, serum or plasma 023 023 [facility] Lab, [address] [place], [address], 3 09:09:24 vitamin D, 25-hydrox y, total, serum 023 023 [facility] - Outpatient Lab, [address] [place], [address], 09:09:26 Referral None recorded. Procedures None recorded. Surgeries None recorded. Imaging None recorded. Medication Orders None recorded. Patient TargetsNo targets recorded. Patient Instructions Encounter Date Encounter Id Patient Instructions Last Modified By Organization Details Last Modified Time 03/30/2023 [id number] dementia rating scale-2* [email or web address] Not available 03/30/2023 11:06:06 alcohol misuse* [email or web address] Not available 03/30/2023 11:06:06 depression screening* [email or web address] Not available 03/30/2023 11:06:06 multi-dimensiona l health assessment questionnaire* [email or web address] Not available 03/30/2023 11:06:06 Personalized a [facility] Plan and Screening Recommendations Advance Directives - [...] no recommendations Ref er to attached handout P re-diabetes: After Your Visit Drastically limit sugar and products made with any type of flour (bread, pasta, cereal, cookies, crackers, etc.) Secondary Prevention/Interven tion (detects treatable diseases before they may cause symptoms, disability, or ) Prostate Cancer Screening: Colon Cancer Screening: Colonoscopy Date Screening Last Performed: __2019__ Eye Disease Screening: Dementia Risk: Low I have no recommendations Depression Screening: Negative Not available 03/30/2023 10:48:40 Medicare wellnes s evaluation risk assessment stable. Over overall is doing well. Will check a CMP, lipid, phosphorus, PTH, vitamin-D level and CBC. Obtain radiographic studies of the left shoulder. Instructed to stay away from any nonsteroidals because the renal dysfunction. Will try to to rearrange for a Nephrology consult. X-ray of the left shoulder Not available 03/30/2023 11:05:39 09/28/2023 [id number] Renal calculi-hyperlipide osmar -family history of colorectal cancer -mild obesity. Plan to check blood work in the form of CBC, CMP, lipid, thyroid and PSA. Continue on current Rx follow-up six months. Portions of the record may have been created with voice recognition software. Occasional wrong-word or s ound-a-like substitutions may have occurred due to the inherent limitations of voice recognition software. Read the chart carefully and recognize, using context, where substitutions have occurred. [email or web address] Not available 09/28/2023 10:57:27 11/23/2024 [id number] Follow-up essent ial hypertension, hyperlipidemia, chronic renal failure and renal calculi by history. Will continue on current medications. Will check blood work in the form of a lipid panel as well as a PSA. As other blood work drawn on a regular basis by Nephrology. Will continue on current Rx and follow-up in six months Follow Up: 6 Months Approximate Date: 05/22/2025 Portions of record are template driven. When necessary additional context will be provided. Additionally some portions have been created with voice recognition software. Occasional wrong-word or s ound-a-like substitutions may have occurred due to the inherent limitations of voice recognition software. Read the chart carefully and recognize, using context, where substitutions may have occurred. Created: Mitul Jose M.D. 11.23.2024 10:00 AM [email or web address] Not available 11/23/2024 11:00:52 Reason for Referral None Reported. Results Created Date Observation Date Name Description Value Unit Range Abnormal Flag Note LastModifiedBy Organization Detail LastModifiedTime 11/04/19 23 11/04/2022 PROTE IN, TOTAL , 24 HOUR URINE (W/O CREAT ININE ) protein, total, 24 HR ur 160 mg/24 _h <150 high URINE VOLUM E: 1600/ 24 Not Available [facility] [address] [place], [address], 11/04/2022 14:34:35 01/03/2001/06/2023 CREAT ININE CLEAR ANCE creatinine 1.71 mg/dL 0.70-1 .28 high Not Available [facility] [address] [place], [address], 01/06/2023 14:29:04 01/03/20 23 01/06/2023 CREAT ININE CLEAR ANCE eGFR 42 mL/mi n/1.7 3m2 > or = 60 low The eGFR is based on the CKD-E PI 2020 equat ion. To calcu late the new eGFR from a previ ous Creat inine or Cysta tin C resul t, go to https ://anthony gould.kandace hodge/debra monahan s/ kdoqi /gfr% 5Fcal culat or Not Available [address] [address] [place], [address], 01/06/2023 14:29:04 01/03/2001/06/2023 CREAT ININE CLEAR ANCE creatinine, 24 hour urine 1.28 g/24_ h 0.50-2 .15 normal Not Available [address] [address] [place], [address], 01/06/2023 14:29:04 01/03/2001/06/2023 CREAT ININE CLEAR ANCE body surface area 2.17 Not Available [facility] [address] [address] [place], [address], 01/06/2023 14:29:04 01/03/2001/06/2023 CREAT ININE CLEAR ANCE creatinine clearance 41 mL/mi n 85-125 low Not Available [facility] [address] [address] [place], [address], 01/06/2023 14:29:04 01/03/20 23 01/06/2023 CREAT ININE CLEAR ANCE height feet 5 FT Not Available [address], [address], 01/06/2023 14:29:04 01/03/20 23 01/06/2023 CREAT ININE CLEAR ANCE height inches 11 in Not Available [facility] [address], [address], 01/06/2023 14:29:04 01/03/20 23 01/06/2023 CREAT ININE CLEAR ANCE weight pounds 215 Not Available [address], [address], 01/06/2023 14:29:04 04/07/20 23 04/08/2023 PTH, INTAC T AND CALCI UM parathyroid [...] Low Maria Guadalupe l High Not Available [address], [address], 04/08/2023 09:09:22 04/07/20 23 04/08/2023 PTH, INTAC T AND CALCI UM calcium 9.5 mg/dL 8.6-10 .3 normal Not Available [address], [address], 04/08/2023 09:09:22 04/07/20 23 04/08/2023 PHOSP HATE ( PHOSP HORUS ) phosphate ( phosphorus) 3.0 mg/dL 2.1-4. 3 normal Not Available [address], [address], 04/08/2023 09:09:23 04/07/20 23 04/08/2023 URIC ACID uric acid 6.7 mg/dL 4.0-8. 0 normal Thera peuti c targe t for gout patie nts: <6.0 mg/dL Not Available [address], [address], 04/08/2023 09:09:24 04/07/20 23 04/08/2023 COMPR EHENS UZIEL METAB OLIC PANEL glucose 88 mg/dL 65-99 normal Fasti ng refer ence inter ricky Not Available [address], [address], 04/08/2023 09:09:25 04/07/20 23 04/08/2023 COMPR EHENS UZIEL METAB OLIC PANEL urea nitrogen (BUN) 23 mg/dL 7-25 normal Not Available [address], [address], 04/08/2023 09:09:25 04/07/20 23 04/08/2023 COMPR EHENS UZIEL METAB OLIC PANEL creatinine 1.90 mg/dL 0.70-1 .28 high Not Available [address], [address], 04/08/2023 09:09:25 04/07/20 23 04/08/2023 COMPR EHENS UZIEL METAB OLIC PANEL eGFR 37 mL/mi n/1.7 3m2 > or = 60 low Not Available [address], [address], 04/08/2023 09:09:25 04/07/20 23 04/08/2023 COMPR EHENS UZIEL METAB OLIC PANEL BUN/creatini ne ratio 12 (calc ) 6-22 normal Not Available [address], [address], 04/08/2023 09:09:25 04/07/20 23 04/08/2023 COMPR EHENS UZIEL METAB OLIC PANEL sodium 141 mmol/ L 135-14 6 normal Not Available [address], [address], 04/08/2023 09:09:25 04/07/20 23 04/08/2023 COMPR EHENS UZIEL METAB OLIC PANEL potassium 5.0 mmol/ L 3.5-5. 3 normal Not Available [address], [address], 04/08/2023 09:09:25 04/07/20 23 04/08/2023 COMPR EHENS UZIEL METAB OLIC PANEL chloride 105 mmol/ L 98-110 normal Not Available [address], [address], 04/08/2023 09:09:25 04/07/20 23 04/08/2023 COMPR EHENS UZIEL METAB OLIC PANEL carbon dioxide 26 mmol/ L 20-32 normal Not Available [address], [address], 04/08/2023 09:09:25 04/07/20 23 04/08/2023 COMPR EHENS UZIEL METAB OLIC PANEL calcium 9.5 mg/dL 8.6-10 .3 normal Not Available [address], [address], 04/08/2023 09:09:25 04/07/20 23 04/08/2023 COMPR EHENS UZIEL METAB OLIC PANEL protein, total 7.2 g/dL 6.1-8. 1 normal Not Available [address], [address], 04/08/2023 09:09:25 04/07/20 23 04/08/2023 COMPR EHENS UZIEL METAB OLIC PANEL albumin 4.0 g/dL 3.6-5. 1 normal Not Available [address], [address], 04/08/2023 09:09:25 04/07/20 23 04/08/2023 COMPR EHENS UZIEL METAB OLIC PANEL globulin 3.2 g/dL_ (calc ) 1.9-3. 7 normal Not Available [address], [address], 04/08/2023 09:09:25 04/07/20 23 04/08/2023 COMPR EHENS UZIEL METAB OLIC PANEL albumin/glob ulin ratio 1.3 (calc ) 1.0-2. 5 normal Not Available [address], [address], 04/08/2023 09:09:25 04/07/20 23 04/08/2023 COMPR EHENS UZIEL METAB OLIC PANEL bilirubin, total 0.4 mg/dL 0.2-1. 2 normal Not Available [address], [address], 04/08/2023 09:09:25 04/07/20 23 04/08/2023 COMPR EHENS UZIEL METAB OLIC PANEL alkaline phosphatase 83 U/L 35-144 normal Not Available [address], [address], 04/08/2023 09:09:25 04/07/20 23 04/08/2023 COMPR EHENS UZIEL METAB OLIC PANEL AST 14 U/L 10-35 normal Not Available [address], [address], 04/08/2023 09:09:25 04/07/20 23 04/08/2023 COMPR EHENS UZIEL METAB OLIC PANEL ALT 17 U/L 9-46 normal Not Available [address], [address], 04/08/2023 09:09:25 04/07/20 23 04/08/2023 CBC (INCL UDES DIFF/ PLT) white blood cell count 7.6 thous and/u L 3.8-10 .8 normal Not Available [address], [address], 04/08/2023 09:09:26 04/07/20 23 04/08/2023 CBC (INCL UDES DIFF/ PLT) red blood cell count 4.76 bre on/uL 4.20-5 .80 normal Not Available [address], [address], 04/08/2023 09:09:26 04/07/2004/08/2023 CBC (INCL UDES DIFF/ PLT) hemoglobin 14.1 g/dL 13.2-1 7.1 normal Not Available [address], [address], 04/08/2023 09:09:26 04/07/20 23 04/08/2023 CBC (INCL UDES DIFF/ PLT) hematocrit 42.2 % 38.5-5 0.0 normal Not Available [address], [address], 04/08/2023 09:09:26 04/07/20 23 04/08/2023 CBC (INCL UDES DIFF/ PLT) MCV 88.7 fL 80.0-1 00.0 normal Not Available [address], [address], 04/08/2023 09:09:26 04/07/2004/08/2023 CBC (INCL UDES DIFF/ PLT) MCH 29.6 pg 27.0-3 3.0 normal Not Available [address], [address], 04/08/2023 09:09:26 04/07/20 23 04/08/2023 CBC (INCL UDES DIFF/ PLT) MCHC 33.4 g/dL 32.0-3 6.0 normal Not Available [address], [address], 04/08/2023 09:09:26 04/07/20 23 04/08/2023 CBC (INCL UDES DIFF/ PLT) RDW 13.6 % 11.0-1 5.0 normal Not Available [address], [address], 04/08/2023 09:09:26 04/07/20 23 04/08/2023 CBC (INCL UDES DIFF/ PLT) platelet count 258 thous and/u L 140-40 0 normal Not Available [address], [address], 04/08/2023 09:09:26 04/07/20 23 04/08/2023 CBC (INCL UDES DIFF/ PLT) MPV 11.5 fL 7.5-12 .5 normal Not Available [address], [address], 04/08/2023 09:09:26 04/07/2004/08/2023 CBC (INCL UDES DIFF/ PLT) absolute neutrophils 5685 cells /uL 1500-7 800 normal Not Available [address], [address], 04/08/2023 09:09:26 04/07/2004/08/2023 CBC (INCL UDES DIFF/ PLT) absolute lymphocytes 1186 cells /uL 850-39 00 normal Not Available [address], [address], 04/08/2023 09:09:26 04/07/20 23 04/08/2023 CBC (INCL UDES DIFF/ PLT) absolute monocytes 593 cells /uL 200-95 0 normal Not Available [address], [address], 04/08/2023 09:09:26 04/07/20 23 04/08/2023 CBC (INCL UDES DIFF/ PLT) absolute eosinophils 84 cells /uL 15-500 normal Not Available [address], [address], 04/08/2023 09:09:26 04/07/20 23 04/08/2023 CBC (INCL UDES DIFF/ PLT) absolute basophils 53 cells /uL 0-200 normal Not Available [address], [address], 04/08/2023 09:09:26 04/07/20 23 04/08/2023 CBC (INCL UDES DIFF/ PLT) neutrophils 74.8 % normal Not Available [address], [address], 04/08/2023 09:09:26 04/07/20 23 04/08/2023 CBC (INCL UDES DIFF/ PLT) lymphocytes 15.6 % normal Not Available [address], [address], 04/08/2023 09:09:26 04/07/20 23 04/08/2023 CBC (INCL UDES DIFF/ PLT) monocytes 7.8 % normal Not Available [address], [address], 04/08/2023 09:09:26 04/07/20 23 04/08/2023 CBC (INCL UDES DIFF/ PLT) eosinophils 1.1 % normal Not Available [address], [address], 04/08/2023 09:09:26 04/07/20 23 04/08/2023 CBC (INCL UDES DIFF/ PLT) basophils 0.7 % normal Not Available [facility] [address] [address] [place], [address], 04/08/2023 09:09:26 04/07/20 23 04/08/2023 VITAM IN [...] /MS is recom aram d: order code 58686 (brandie ents >2yrs ). See Note 1 Note 1 For addit ional infor trent lu refer to http: //coni echeverria.Tono stDia gnost ics.c om/fa q/FAQ 199 (This link is being provi ded for infor monik gomez/ jame cortez purpo ses only. ) Not Available [facility] [address] [address] [place], [address], 04/08/2023 09:09:26 10/27/19 24 10/28/2023 LIPID PANEL , STAND PILY cholesterol, total 207 mg/dL <200 high Not Available [facility] [address] [address] [place], [address], 10/28/2023 07:25:25 10/27/19 24 10/28/2023 LIPID PANEL , STAND PILY HDL cholesterol 45 mg/dL > or = 40 normal Not Available [facility] [address] [address] [place], [address], 10/28/2023 07:25:25 10/27/19 24 10/28/2023 LIPID PANEL , STAND PILY triglyceride s 267 mg/dL <150 high If a non-f astin g speci men was colle cted, consi diane repea t trigl yceri de testi ng on a fasti ng speci men if clini prateek indic ated. Pradeep jaffe et al. J. of Clin. Lipid ol. 2015; 9:129 -169. Not Available [facility] [address] [place], [address], 10/28/2023 07:25:25 10/27/19 24 10/28/2023 LIPID PANEL [...] calcu lated using the Lisa n-Hop kins calcu janine n, which is a valid ated novel metho d provi ding rolly r accur acy than the Fried jaz equat ion in the estim ation of LDL-C . Lisa echeverria SS et al. BASSEM. 2013; 310(1 9): 2061- 2068 (http ://ed ucati on.Qu fredoSouthern Po Boys. Trendslide/f aq/FA Q164) Not Available [facility] [address] [place], [address], 10/28/2023 07:25:25 10/27/19 24 10/28/2023 LIPID PANEL , STAND PILY chol/HDLC ratio 4.6 (calc ) <5.0 normal Not Available [facility] [address] [place], [address], 10/28/2023 07:25:25 10/27/19 24 10/28/2023 LIPID PANEL , STAND PILY non HDL cholesterol 162 mg/dL _(zohreh c) <130 high For patie nts with diabe belen plus 1 major ASCVD risk facto r, treat ing to a non-H DL-C goal of <100 mg/dL (LDL- C of <70 mg/dL ) is lee ann vences optio n. Not Available [address], [address], 10/28/2023 07:25:25 10/27/19 24 10/28/2023 COMPR EHENS UZIEL METAB OLIC PANEL glucose 93 mg/dL 65-99 normal Fasti ng refer ence inter ricky Not Available [address], [address], 10/28/2023 07:25:26 10/27/19 24 10/28/2023 COMPR EHENS UZIEL METAB OLIC PANEL urea nitrogen (BUN) 24 mg/dL 7-25 normal Not Available [address], [address], 10/28/2023 07:25:26 10/27/19 24 10/28/2023 COMPR EHENS UZIEL METAB OLIC PANEL creatinine 1.69 mg/dL 0.70-1 .28 high Not Available [address], [address], 10/28/2023 07:25:26 10/27/19 24 10/28/2023 COMPR EHENS UZIEL METAB OLIC PANEL eGFR 43 mL/mi n/1.7 3m2 > or = 60 low Not Available [address], [address], 10/28/2023 07:25:26 10/27/19 24 10/28/2023 COMPR EHENS UZIEL METAB OLIC PANEL BUN/creatini ne ratio 14 (calc ) 6-22 normal Not Available [address], [address], 10/28/2023 07:25:26 10/27/19 24 10/28/2023 COMPR EHENS UZIEL METAB OLIC PANEL sodium 139 mmol/ L 135-14 6 normal Not Available [facility] [address] [address], [place], [address], 10/28/2023 07:25:26 10/27/19 24 10/28/2023 COMPR EHENS UZIEL METAB OLIC PANEL potassium 5.3 mmol/ L 3.5-5. 3 normal Not Available [address], [address], 10/28/2023 07:25:26 10/27/19 24 10/28/2023 COMPR EHENS UZIEL METAB OLIC PANEL chloride 105 mmol/ L 98-110 normal Not Available [address], [address], 10/28/2023 07:25:26 10/27/19 24 10/28/2023 COMPR EHENS UZIEL METAB OLIC PANEL carbon dioxide 28 mmol/ L 20-32 normal Not Available [address], [address], 10/28/2023 07:25:26 10/27/19 24 10/28/2023 COMPR EHENS UZIEL METAB OLIC PANEL calcium 9.4 mg/dL 8.6-10 .3 normal Not Available [address], [address], 10/28/2023 07:25:26 10/27/19 24 10/28/2023 COMPR EHENS UZIEL METAB OLIC PANEL protein, total 6.8 g/dL 6.1-8. 1 normal Not Available [address], [address], 10/28/2023 07:25:26 10/27/19 24 10/28/2023 COMPR EHENS UZIEL METAB OLIC PANEL albumin 3.9 g/dL 3.6-5. 1 normal Not Available [address], [address], 10/28/2023 07:25:26 10/27/19 24 10/28/2023 COMPR EHENS UZIEL METAB OLIC PANEL globulin 2.9 g/dL_ (calc ) 1.9-3. 7 normal Not Available [address], [address], 10/28/2023 07:25:26 10/27/19 24 10/28/2023 COMPR EHENS UZIEL METAB OLIC PANEL albumin/glob ulin ratio 1.3 (calc ) 1.0-2. 5 normal Not Available [address], [address], 10/28/2023 07:25:26 10/27/19 24 10/28/2023 COMPR EHENS UZIEL METAB OLIC PANEL bilirubin, total 0.5 mg/dL 0.2-1. 2 normal Not Available [address], [address], 10/28/2023 07:25:26 10/27/19 24 10/28/2023 COMPR EHENS UZIEL METAB OLIC PANEL alkaline phosphatase 81 U/L 35-144 normal Not Available [address], [address], 10/28/2023 07:25:26 10/27/19 24 10/28/2023 COMPR EHENS UZIEL METAB OLIC PANEL AST 13 U/L 10-35 normal Not Available [address], [address], 10/28/2023 07:25:26 10/27/19 24 10/28/2023 COMPR EHENS UZIEL METAB OLIC PANEL ALT 16 U/L 9-46 normal Not Available [address], [address], 10/28/2023 07:25:26 10/27/19 24 10/28/2023 CBC (INCL UDES DIFF/ PLT) white blood cell count 6.7 thous and/u L 3.8-10 .8 normal Not Available [address], [address], 10/28/2023 07:25:27 10/27/19 24 10/28/2023 CBC (INCL UDES DIFF/ PLT) red blood cell count 4.77 bre on/uL 4.20-5 .80 normal Not Available [address], [address], 10/28/2023 07:25:27 10/27/19 24 10/28/2023 CBC (INCL UDES DIFF/ PLT) hemoglobin 14.1 g/dL 13.2-1 7.1 normal Not Available [address], [address], 10/28/2023 07:25:27 10/27/19 24 10/28/2023 CBC (INCL UDES DIFF/ PLT) hematocrit 42.3 % 38.5-5 0.0 normal Not Available [address], [address], 10/28/2023 07:25:27 10/27/19 24 10/28/2023 CBC (INCL UDES DIFF/ PLT) MCV 88.7 fL 80.0-1 00.0 normal Not Available [address], [address], 10/28/2023 07:25:27 10/27/19 24 10/28/2023 CBC (INCL UDES DIFF/ PLT) MCH 29.6 pg 27.0-3 3.0 normal Not Available [address], [address], 10/28/2023 07:25:27 10/27/19 24 10/28/2023 CBC (INCL UDES DIFF/ PLT) MCHC 33.3 g/dL 32.0-3 6.0 normal Not Available [address], [address], 10/28/2023 07:25:27 10/27/19 24 10/28/2023 CBC (INCL UDES DIFF/ PLT) RDW 12.9 % 11.0-1 5.0 normal Not Available [address], [address], 10/28/2023 07:25:27 10/27/19 24 10/28/2023 CBC (INCL UDES DIFF/ PLT) platelet count 261 thous and/u L 140-40 0 normal Not Available [address], [address], 10/28/2023 07:25:27 10/27/19 24 10/28/2023 CBC (INCL UDES DIFF/ PLT) MPV 11.5 fL 7.5-12 .5 normal Not Available [address], [address], 10/28/2023 07:25:27 10/27/19 24 10/28/2023 CBC (INCL UDES DIFF/ PLT) absolute neutrophils 4268 cells /uL 1500-7 800 normal Not Available [address], [address], 10/28/2023 07:25:27 10/27/19 24 10/28/2023 CBC (INCL UDES DIFF/ PLT) absolute lymphocytes 1554 cells /uL 850-39 00 normal Not Available [address], [address], 10/28/2023 07:25:27 10/27/19 24 10/28/2023 CBC (INCL UDES DIFF/ PLT) absolute monocytes 683 cells /uL 200-95 0 normal Not Available [address], [address], 10/28/2023 07:25:27 10/27/19 24 10/28/2023 CBC (INCL UDES DIFF/ PLT) absolute eosinophils 147 cells /uL 15-500 normal Not Available [address], [address], 10/28/2023 07:25:27 10/27/19 24 10/28/2023 CBC (INCL UDES DIFF/ PLT) absolute basophils 47 cells /uL 0-200 normal Not Available [address], [address], 10/28/2023 07:25:27 10/27/19 24 10/28/2023 CBC (INCL UDES DIFF/ PLT) neutrophils 63.7 % normal Not Available [address], [address], 10/28/2023 07:25:27 10/27/19 24 10/28/2023 CBC (INCL UDES DIFF/ PLT) lymphocytes 23.2 % normal Not Available [address], [address], 10/28/2023 07:25:27 10/27/19 24 10/28/2023 CBC (INCL UDES DIFF/ PLT) monocytes 10.2 % normal Not Available [address], [address], 10/28/2023 07:25:27 10/27/19 24 10/28/2023 CBC (INCL UDES DIFF/ PLT) eosinophils 2.2 % normal Not Available [address], [address], 10/28/2023 07:25:27 10/27/19 24 10/28/2023 CBC (INCL UDES DIFF/ PLT) basophils 0.7 % normal Not Available [address], [address], 10/28/2023 07:25:27 10/27/19 24 10/28/2023 T4, FREE T4, free 0.9 NG/dL 0.8-1. 8 normal Not Available [facility] [address] [place], [address], 10/28/2023 07:25:28 10/27/19 24 10/28/2023 TSH TSH 1.62 mIU/L 0.40-4 .50 normal Not Available [facility] [address] [address], [place], [address], 10/28/2023 07:25:29 10/27/19 24 10/28/2023 PSA, TOTAL [...] This test was perfo rmed using the TableApp chemi lumin escen t metho d. Value s obtai logan from diffe rent assay metho ds canno t be used inter shah eably . PSA level s, regar dless of value , shoul d not be inter prete d as absol destinee evide nce of the prese nce or absen ce of disea se. Not Available [facility] [address] [place], [address], 10/28/2023 07:25:30 01/19/20 23 01/18/2023 US, kidne y No observ ation record ed. [email or web address] [place] [address] [address], [place], [address], 01/18/2023 16:01:51 03/30/20 23 XR, shoalex diane, 2 or more view [facility] [address] [facility], [place] [address] Patien t Name: LEXUS GRAFF CH [facility] ion #: [id number] Sex: M : 1949 [facility] #: [id number] Dictat ed By: Mika Patel Attend ing Physic lauren: GEOVANNA JOSE Orderi ng Physic lauren: GEOVANNA JOSE CE [...] at 2022 11:30: 33 AM Page [address] (Imaging) [address] [place] [address], [address], 03/30/2023 12:40:13 08/24/19 24 08/20/2023 lab* No observ ation record ed. [email or web address] Not Available 2023 15:57:17 08/24/19 lab* No observ ation record ed. [email or web address] Not Available 2023 15:57:17 12/30/19 24 12/30/2023 XR, abdom en No observ ation record ed. [id number], [place], [address], 12/31/2023 06:09:30 01/20/20 24 01/20/2024 CT, abdom en + pelvi s, w/o contr ast No observ ation record ed. [email or web address] [facility] [address], [place], [address], 01/20/2024 12:45:16 03/21/20 24 02/28/2024 lab* No observ ation record ed. [email or web address] Not Available 2023 12:53:11 Result Notes None recorded. Problems Name Problem SNOMED Code Status Onset Date Resolution Date Notes Provider Name and Address Organization Details Recorded Time Renewal of prescripti on Active 2021 Not Available [facility] [facility] 3 17:23:54 Irritable bowel syndrome 84339644 Active Not Available [facility] 3 17:23:54 Family history of colorectal cancer 0735411100841 Active 2018 Not Available [facility] 3 17:23:54 Insomnia 180322844 Active 2022 Not Available [facility] 3 17:23:55 Family history of neoplasm 399964985 Active Not Available [facility] 3 17:23:55 Pure hyperchole sterolemia 863211927 Active Not Available [facility] 3 17:23:55 Disorder of prostate 69969148 Active 2022 Not Available [facility] 3 17:23:55 Chronic pain syndrome 389113494 Active 2019 Not Available [facility] 3 17:23:55 Acute urinary tract infection 588893310 Active 2021 Not Available [facility] 3 17:23:55 Screening for malignant neoplasm of prostate Active 2021 Not Available [facility] 3 17:23:55 Herniation of nucleus pulposus 44646270 Active Not Available [facility] 3 17:23:55 Kidney stone 15087380 Active 2018 Not Available [facility] 3 17:23:55 Chronic renal failure 05962093 Active 2022 Not Available [facility] 3 17:23:55 Serum creatinine above reference range 863083362 Active 2022 Not Available [facility] 3 17:23:55 Pain of left shoulder joint 8074946346211 9109 Active 2022 Not Available [facility] 3 17:23:54 Obese class I 3923466894962 07 Active 2023 Mitul Jose MD [address] [facility], [place] [address], [place], [address] , [employer] 4 10:54:18 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 Procedures Surgical History Date Name Laterality Status Provider Name and Address Organization Details Recorded Time 3 Medicare Wellness CPT Code, subsequent completed Liza Baker RN [employer] 03/30/2023 10:41:46 Imaging Results Imaging Date Name Status LastModified by Organiz ation Details LastModified Time 01/18/2023 US, kidney completed [email or web address] [place] [id number] [facility] [address] [place] [address], [address], 01/18/2023 16:01:51 03/30/2023 XR, shoulder, 2 or more view completed [email or web address] [facility] (Imaging) [address] [place], [address], 03/30/2023 12:40:13 08/20/2023 lab* completed Information no t available 08/24/2023 15:57:17 08/24/2023 lab* completed [email or web address] Information no t available 08/24/2023 15:57:17 12/30/2023 XR, abdomen completed [address] [facility] [address], [place], [address], 12/31/2023 06:09:30 01/20/2024 CT, abdomen + pelvis, w/o contrast completed [address] [facility] [address], [place], [address], 01/20/2024 12:45:16 02/28/2024 lab* [email or web address] Information no t available 03/21/2024 12:53:11 Procedure Notes None recorded. Medical Equipment None Reported. Medications Name Sig Start Date Stop Date Status Note LastModified by Organization Details LastModified Time atorvastat in 40 mg tablet TAKE 1 TABLET BY MOUTH ONCE DAILY active Not Available Not Available No t Available trazodone 50 mg tablet Take 1 tablet [...] TABLET BY MOUTH DAILY IN THE MORNING active Not Available Not Available No t Available ciprofloxa danuta 500 mg tablet TAKE 2 [...] BY MOUTH 1 TIME BEFORE PROCEDUR E 11/23 completed Not Available Not Available Not Available tamsulosin 0.4 mg capsule 11/23 completed Not Available Not Available Not Available hydrocodon e 7.5 mg-acetami nophen 325 mg tablet TAKE 1 TABLET BY MOUTH EVERY 6 HOURS NEEDED FOR PAIN 09/28 completed pt states never picked up from pharm-- didnt need med Not Available Not Available Not Available aspirin 81 mg tablet Take 1 tablet every day by oral route. active Not Available Not Available No t Available olmesartan 5 mg tablet TAKE 2 TABLETS BY MOUTH EVERY NIGHT active Not Available Not Available No t Available tadalafil 20 mg tablet TAKE ONE TABLET BY MOUTH APPROXIM ATELY ONE HOUR BEFORE SEXUAL ACTIVITY . DO NOT USE MORE THAN ONE DOSE DAILY active Not Available Not Available No t Available [employer] COVID-19 Ag Self Test kit TEST DIRECTED TODAY 03/24 completed Not Available Not Available Not Available Vitals Date Recorded Body mass index (BMI) Body height Oxygen saturation Oxygen saturation in Arterial blood by Pulse oximetry Pain severity - 0-10 verbal numeric rating [Score] - Reported Heart rate Body temperature Body weight Systolic blood pressure Diastolic blood pressure Provider Name and Address Organization Details Last Updated DateTime 2 30.8 kg/m2 179.07 cm 97 % 97 % 0 68 /min 95.5 [degF] 35413.1 4 g 120 mm[Hg] 60 mm[Hg] Not Available [facility] 3 14:46:45 Date Recorded Body mass index (BMI) Body height Oxygen saturation Oxygen saturation in Arterial blood by Pulse oximetry Heart rate Body temperature Body weight Systolic blood pressure Diastolic blood pressure Provider Name and Address Organization Details Last Updated DateTime 3 30.7 kg/m2 179.07 cm 96 % 96 % 103 /min 97 [degF] 39808.5 4 g 138 mm[Hg] 84 mm[Hg] Not Available [facility] 3 14:46:45 Date Recorded Body height Body mass index (BMI) Body weight Heart rate Body temperature Oxygen saturation Oxygen saturation in Arterial blood by Pulse oximetry Systolic blood pressure Diastolic blood pressure Provider Name and Address Organization Details Last Updated DateTime 3 179.07 cm 31 kg/m2 12973.7 3 g 102 /min 97 [degF] 94 % 94 % 122 mm[Hg] 78 mm[Hg] Melissa Love Jv [place] [employer] [facility] 3 10:37:07 Date Recorded Pain severity - 0-10 verbal numeric rating [Score] - Reported Provider Name and Address Organization Details Last Updated DateTime 03/30/2023 0 Liza Baker RN [facility] [employer] [facility] 03/30/2023 10:42:02 Date Recorded Body height Body weight Heart rate Body temperature Oxygen saturation Oxygen saturation in Arterial blood by Pulse oximetry Body mass index (BMI) Systolic blood pressure Diastolic blood pressure Provider Name and Address Organization Details Last Updated DateTime 4 180.34 cm 839324. 51 g 93 /min 97.4 [degF] 95 % 95 % 31 kg/m2 128 mm[Hg] 88 mm[Hg] Courtney Olvera Can [facility] [employer] [facility] 4 10:33:27 Date Recorded Heart rate Systolic blood pressure Diastolic blood pressure Provider Name and Address Organization Details Last Updated DateTime 02/24/2024 96 /min 130 mm[Hg] 94 mm[Hg] Courtney Olvera Can [facility] [employer] [facility] 02/24/2024 11:26:31 Date Recorded Heart rate Systolic blood pressure Diastolic blood pressure Provider Name and Address Organization Details Last Updated DateTime 03/14/2024 86 /min 150 mm[Hg] 90 mm[Hg] Courtney Olvera Can [facility] [employer] [facility] 03/14/2024 11:13:40 Date Recorded Body height Body mass index (BMI) Body weight Heart rate Body temperature Oxygen saturation Oxygen saturation in Arterial blood by Pulse oximetry Systolic blood pressure Diastolic blood pressure Provider Name and Address Organization Details Last Updated DateTime 5 180.34 cm 32.1 kg/m2 504619. 04 g 108 /min 97 [degF] 98 % 98 % 120 mm[Hg] 84 mm[Hg] Melissa Núñez [facility] [employer] [facility] 5 10:50:56 Social History Question Answer Notes LastModified by Organizat ion Details LastModified Time Tobacco Smoking Status Never Smoker Not Available [facility] 10/07/2022 14:45:23 Do You Have An Advance Directive? No MIGRATION.[id number] Information not available 10/07/2022 What Is Your Level Of Alcohol Consumption? Occasional MIGRATION.050524 5721 Information not available 10/07/2022 Are You Blind Or Do You Have Difficulty Seeing? No MIGRATION.531491 5903 Information not available 10/07/2022 Are You Deaf Or Do You Have Serious Difficulty Hearing? No MIGRATION.247663 6370 Information not available 10/07/2022 What Type Of Diet Are You Following? REGULAR MIGRATION.659568 8138 Information not available 10/07/2022 Have There Been Any Changes To Your Family Or Social Situation? No MIGRATION.266478 7481 Information not available 10/07/2022 What Is The Fluoride Status Of Your Home? Unknown MIGRATION.777718 8657 Information not available 10/07/2022 Are There Any Guns Present In Your Home? Yes MIGRATION.413771 2274 Information not available 10/07/2022 Do You Use Insect Repellent Routinely? No MIGRATION.898449 9042 Information not available 10/07/2022 Where Do You Live? [place] MIGRATION.757674 1714 Information not available 10/07/2022 Guns Present In The Home? Yes [email or web address] Information not available 03/30/2023 Are You Able To Care For Yourself? Yes [email or web address] Information not available 03/30/2023 Are You Blind Or Do Yo Have Difficulty Seeing? No [email or web address] Information not available 03/30/2023 Are You Deaf Or Do You Have Serious Difficulty Hearing? No [email or web address] Information not available 03/30/2023 Live Alone Of With Others? Alone [email or web address] Information not available 03/30/2023 Do You Have A Medical Power Of Accountant Systems? No MIGRATION.819279 7288 Information not available 10/07/2022 What Was The Date Of Your Most Recent Tobacco Screening? 03/30/2023 [email or web address] Information not available 03/30/2023 Do You Have Any Pets? No MIGRATION.026875 1181 Information not available 10/07/2022 Do You Use Your Seat Belt Or Car Seat Routinely? Yes MIGRATION.163376 8852 Information not available 10/07/2022 Do You Have Smoke And Carbon Monoxide Detectors In Your Home? Yes MIGRATION.107404 1376 Information not available 10/07/2022 Are You Passively Exposed To Smoke? No MIGRATION.578195 7938 Information not available 10/07/2022 Are There Any Smokers In Your House? No MIGRATION.856624 4732 Information not available 10/07/2022 Do You Use Sunscreen Routinely? No MIGRATION.173667 6462 Information not available 10/07/2022 Have You Recently Traveled Abroad? No MIGRATION.568627 7555 Information not available 10/07/2022 Do You Or Have You Ever Used Any Other Forms Of Tobacco Or Nicotine? No MIGRATION.983146 4683 Information not available 10/07/2022 Sex: Unknown Functional Status Question Answer Note LastModified by Organizat ion Details LastModified Time Do you have difficulty walking or climbing stairs? No MIGRATION.9314311 026 Information not available 10/07/2022 Do you have transportation difficulties? No MIGRATION.1402794 026 Information not available 10/07/2022 Are you able to walk? YESWOREST MIGRATION.1678039 026 Information not available 10/07/2022 Do you have difficulty doing errands alone? No MIGRATION.7273470 026 Information not available 10/07/2022 Are you able to care for yourself? Yes MIGRATION.5794249 026 Information not available 10/07/2022 Do you have difficulty dressing or bathing? No MIGRATION.9625209 026 Information not available 10/07/2022 What is your exercise level? Occasional MIGRATION.4356624 026 Information not available 10/07/2022 Mental Status Question Answer Note LastModified by Organizat ion Details LastModified Time Do you have difficulty concentrating, remembering or making decisions? No MIGRATION.[id number] 6 Information not available 10/07/2022 Family History Nothing Reported Notes:Mother 80 fro m lymphoma Father Living 83 years old 1 Brothers 1 Living 1 Sisters 1 Living Father Hx Ca Colon Sister Hx High Cholesterol (1) Brother Hx High Cholesterol (1) Medical History Condition Response NERVE DISEASE N BLINDNESS N RHEUMATIC FEVER N KIDNEY STONES N BLADDER PROBLEMS N MRSA N OTHER # 1 N POLIO N LUNG DISEASE/DISORDER N HISTORY OF DRUG ABUSE N COPD N RADIATION / CHEMOTHERAPY N Other # 2 N BLOOD DISEASES N EAR OR HEARING PROBLEMS N MUMPS N SHINGLES N BOWEL PROBLEMS N DEPRESSION (INCLUDING POST ) N STROKE/TIA N ULCERS N BENIGN PROSTATIC [...] HAVE YOU BEEN HOSPITALIZED OR SEEN IN THE MEDICAL CENTER IN THE PAST YEAR ? N ATHEROSCLEROSIS [...] (COVID-19) vaccine, UNSPECIFIED 1 completed Not Available [facility] 06/08/2023 17:23:55 SARS-COV-2 (COVID-19) vaccine, UNSPECIFIED 1 completed Not Available [facility] 06/08/2023 17:23:55 Influenza, high-dose, quadrivalent, PF 0 completed Not Available [facility] 06/08/2023 17:23:55 Influenza, high-dose, trivalent, PF 9 completed Not Available [facility] 06/08/2023 17:23:55 Past Encounters Encounter ID Performer Location Encounter Start Date Encounter Closed Date Diagnosis/Indication Diagnosis SNOMED-CT Code Diagnosis ICD10 Code Diagnosis Note [id number] Mitul Jose MD [facility] [address] [facility] [address] , [place] [address] 03/07/2021 00:00:00 03/07/2021 12:58:15 [id number] Mitul Jose MD [facility] Internal Med [place] [address] [place] [address] [place] [address] 09/05/2021 00:00:00 09/05/2021 11:36:06 [id number] Mitul Jose MD [facility] Internal Med Paul llmar[place] [address] [place] [address] [place] [address] 03/24/2022 00:00:00 03/24/2022 10:58:29 [id number] Mitul Jose MD [facility] Internal Med Paul llmariaelena [address] [place] [address] [place] [address] 09/22/2022 00:00:00 09/22/2022 11:08:59 [id number] Mitul Jose MD [facility] Internal Med [place] [address] [place] [address] [place] [address] 03/30/2023 10:24:04 03/30/2023 11:13:02 Adult health examination 121048818 Z00.00 Screening for disorder 218349031 Z13.9 Chronic pain syndrome 37 9624173 G89.4 Pure hypercholesterolemia 268563246 E78.00 Chronic renal failure 90 584394 N18.9 Pain of le ft shoulder joint 7733467994 5855761 M25.896 [id number] Mitul Jose MD [facility] Internal Med [place] [address] [place] [address] [place] [address] 09/28/2023 10:22:44 09/28/2023 11:06:02 Pure hypercholesterolemia 486342994 E78.00 Family his tory of colorectal cancer 2779059478 104 Z80.0 Kidney stone 99062762 N2 0.0 Obese class I 2511957132 68628 E66.9 Disorder of prostate 302 94137 N42.9 [id number] Mitul Jose MD [facility] [address] [facility] [address] [place] [address] 11/23/2024 10:22:34 11/23/2024 11:06:26 Chronic renal failure 37576371 N18.9 Pure hypercholesterolemia 994766558 E78.00 Essential hypertension 46111579 I10 Kidney stone 85235811 N2 0.0 Disorder of prostate 302 27537 N42.9 Health Concerns Section Related Observation LastModified by Organization Detai ls LastModified Time None Recorded Concern Status LastModified by Organization Details LastModified Time None Recorded Advance Directives Directive N: Payers Encounter Date Sequence Insurance Name Policy Number Policy Jolly Covered Member ID Jolly Member ID Guarantor Name 03/30/2023 1 [employer] (MEDICARE REPLACEMENT PPO) [id number] Lexus Poole [id number] Lexus Poole 09/28/2023 1 [employer] (MEDICARE REPLACEMENT PPO) [id number] Lexus Poole [id number] Lexus Poole 11/23/2024 1 [employer] (MEDICARE REPLACEMENT PPO) [id number] Lexus Poole [id number] Lexus Poole 11/23/2024 2 [place] Lexus Poole [id number] Lexus Poole Notes Date Note Type Note Provider Name and Address Organization Details Recorded Time 03/30/20 23 text/htm l Patient Name: Lexus Albarran VirgilioDate Of Service: Wednesday ( 03.30.2023 ): 1950 [...] doing well. Currently is followed by a kiln placer. Stage: CKD-3a. Albumin Stage: A1. There has [...] or has seen in the past a Carpet Jack: No .Pain - Enjoyment of Life - General Activity ScalePain on Average: 4Enjoyment of Live: 4General Activity: 5Enjoyment of Life - General Activity Scale: 5Currently regimen consists of [place] on an intermittent basis. as prescribed with [...] offered to be evaluated and instructed by plastic outfitter on weight loss diet.Medication List Reviewed and Reconciled 03/30/2023Norco 325 MG-7.5 MG (TABLET - ORAL) Every Six Hours As NeededAspirin 81 MG One Daily- Pt Not TakingLipitor 80 MG (TABLET - ORAL) Take One Tablet DailyVaccination and Zktjvtgywvsk6829-89 Covid Wwddpg1648-35 InfluenzaSurgical HistoryLeft Hip Resurfacing, TonsillectomyPreventative Testing Confirmed by Our Fkkwmvo5710/14/2022 ALBUMIN 4.0 G/DL10/14/2022 PSA 0.70 NG/ML03/22/2019 COLONOSCOPY [...] High Cholesterol (1) Mitul Jose MD [address] [facility], [facility] [address], [place], [address], [place] [facility] 03/30/2023 11:06:12 09/28/19 24 text/htm l Patient Name: Lexus Polancote Of Service: Wednesday ( 09.28.2023 ): 1950 [...] offered to be evaluated and instructed by plastic outfitter on weight loss diet. Active Medication ListAspirin 81 MG One Daily- Pt Not TakingLipitor 80 MG (TABLET - ORAL) Take One Tablet Daily Vaccination and Cuotnyghtcev4375-91 Covid Nylbkv9412-57 Influenza Surgical Dmaeqnq4000-80 Lt. Kdpytzygjg4450-68 Left Hip Tlegfdkzmjt6986-68 Tonsillectomy Preventative Testing Confirmed by Our Yybclyh6808/19/2023 HAIC 5.708/ ALBUMIN 4.0 G/DL N010/14/2022 PSA 0.70 NG/ML N003/22/2019 COLONOSCOPY (5 YEARS) 03/22/2024 Social HistorySOCIAL HISTORY:Does not smoke cigarettes. Drinking Hx: < 6 beers per week, 2 Cups of coffee per day, 1 Cup of tea per day. 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
--- OUTSIDE RECORDS SUMMARY | 2024-12-06 12:00 | XMS_ITS | Referral Summary ---
Author Organization [facility] Address [address] [place] [address] Care Team Providers Care Research Engineer [employer] Name Role Phone Yovani Jose MD Primary Care Provider Karlos Bailey MD Unavailable [phone]- [phone] Encounters Date Type Department Care Team Description 10/07/2024 4:45 PM TEST ENG Office Visit [facility] at [address] [address] Lupis Eldridge NP Influenza A (Primary Dx) from Last 3 Months Allergies No known active allergies Medications atorvastatin [...] on file Legal Sex Male 2:19 AM TEST ENG Gender Identity Not on file Sexual Orientation Not on file Last Filed Vital Signs Vital Sign Reading Time Taken Comments Blood Pressure 158/85 10/07/2024 4:43 PM TEST ENG Pulse 95 10/07/2024 4:43 PM TEST ENG Temperature 37.2 C (99 F) 10/07/2024 4:43 PM TEST ENG Respiratory Rate 19 10/07/2024 4:43 PM TEST ENG Oxygen Saturation 96% 10/07/2024 4:43 PM TEST ENG Inhaled Oxygen Concentration - - Weight 103.9 kg (229 lb) 10/07/2024 4:43 PM TEST ENG Height 180.3 cm (5' 11 ) 10/07/2024 4:43 PM TEST ENG Body Mass Index 31.94 10/07/2024 4:43 PM TEST ENG Plan of Treatment Not on file Medical Devices Implanted Type [employer] Device Identifier Shelf Expiration Date Model / Serial / Lot [employer] Contour 6fr 26cm Large Inner Lumen Low Profile Bladder Ochoa Taper Latex Free 180-223 - [id number] Implanted:Qty: 1 on 03/23/2024 by Karlos Bailey MD at [facility] Right: [employer] 10/24/2026 [id number] / / [id number] Explanted Type [employer] Teacher Device Identifier Shelf Expiration Date Model / Serial / Lot [employer] Airam Contour 6fr 26cm Large Inner Lumen Low Profile Bladder Ochoa Taper Latex Free 180-223 - [id number] Implanted:Qty: 1 on 03/03/2024 by Karlos Bailey MD at [facility] Explanted:Qty: 1 on 03/23/2024 at [facility] Right: [employer] 09/17/2026 [id number] / / [id number] Procedures Procedure Name Priority Date/Time Associated Diagnosis Comments POC INFLUENZA A/B, COVID-19 ANTIGEN Routine 10/07/2024 4:48 PM TEST ENG Influenza A from Last 3 Months Results * (ABNORMAL) POC Influenza A/B, COVID-19 antigen (10/07/2024 4:48 PM TEST ENG) Influenza A Ag, POC Positive(A) Negative [facility] Influenza B Ag, POC Negative Negative [facility] COVID-19 Ag POC Presumptive Negative Presumptive Negative, Invalid [facility] Nasopharyngeal 10/07/2024 4: 48 PM TEST ENG us Lupis Eldridge NP POINT OF CARE TEST ORDERAB LES Final Result [facility] [address] [place] [address], [facility] from Last 3 Months Insurance T MEDICARE AETNA MEDICARE Advance Directives For more information, please contact: [phone] * Full Code (Latest Code Status on File) Date Activated Date Inactivated Comments 08/31/2023 6:40 PM 09/01/2023 6:26 PM Care Teams Research Engineer Marine Equipment Relationship Specialty Start Date End Date Yovani Jose MD PCP - General 10/14/18 [place] [address] [place] [address] Consulting Physician Urology 09/01/23
--- OUTSIDE RECORDS SUMMARY | 2024-12-06 12:00 | XMS_ITS | Clinical Summary ---
Author Organization [facility] Address [address] [place] [address] Care Team Providers Care Supervisor Inspection Department Name Role Phone Yovani Jose MD Primary Care Provider Karlos Bailey MD Unavailable [phone] Allergies No known active allergies Medications atorvastatin [...] left kidney 08/06/2023 Surgical follow-up care 02/02/2014 Encounters Date Type Department Care Team Description 10/07/2024 4:45 PM INSPECTOR ADVANCED COMPOSITE Office Visit [facility] at [address] [address] Lupis Eldridge NP Influenza A (Primary Dx) from Last 3 Months Surgical History Surgery Date Site/Laterality Comments PARTIAL [...] on file Legal Sex Male 2:19 AM INSPECTOR ADVANCED COMPOSITE Gender Identity Not on file Sexual Orientation Not on file Obstetrics History Last Filed Vital Signs Vital Sign Reading Time Taken Comments Blood Pressure 158/85 10/07/2024 4:43 PM INSPECTOR ADVANCED COMPOSITE Pulse 95 10/07/2024 4:43 PM INSPECTOR ADVANCED COMPOSITE Temperature 37.2 C (99 F) 10/07/2024 4:43 PM INSPECTOR ADVANCED COMPOSITE Respiratory Rate 19 10/07/2024 4:43 PM INSPECTOR ADVANCED COMPOSITE Oxygen Saturation 96% 10/07/2024 4:43 PM INSPECTOR ADVANCED COMPOSITE Inhaled Oxygen Concentration - - Weight 103.9 kg (229 lb) 10/07/2024 4:43 PM INSPECTOR ADVANCED COMPOSITE Height 180.3 cm (5' 11 ) 10/07/2024 4:43 PM INSPECTOR ADVANCED COMPOSITE Body Mass Index 31.94 10/07/2024 4:43 PM INSPECTOR ADVANCED COMPOSITE Plan of Treatment Health Maintenance Due Date Last Done Comments Colon Cancer Screening-Colonoscopy 1950 Depression Screening 1950 Hepatitis C Screening 1951 DTaP/Tdap/Td Vaccine (1 - Tdap) 1962 Hepatitis B Screening 1969 Pneumococcal vaccine 65+ (1 of 1 - PCV) 2001 Zoster Vaccine (1 of 2) 2001 Well Visit 65+ 2016 Covid-19 Vaccine ( season) 04/09/202406/2021, 10/22/2020 Fall Risk Assessment 03/15/2025 03/15/2024, 02/03/2024, 09/01/2023 Influenza Vaccine (Season Ended) 2025 07/11/2019, 06/03/2018, 06/11/2017 Medical Devices Implanted Type Area Music Worker Device Identifier Shelf Expiration Date Model / Serial / Lot [place] [employer] Airam Contour 6fr 26cm Large Inner Lumen Low Profile Bladder Ochoa Taper Latex Free 180-223 - [id number] Implanted:Qty: 1 on 03/23/2024 by Karlos Bailey MD at [facility] Right: Ureter [employer] [employer] Airam 10/24/2026 [id number] / / [id number] Explanted Type Area Music Worker Device Identifier Shelf Expiration Date Model / Serial / Lot [place] [employer] Airam Contour 6fr 26cm Large Inner Lumen Low Profile Bladder Ochoa Taper Latex Free 180-223 - [id number] Implanted:Qty: 1 on 03/03/2024 by Karlos Bailey MD at [facility] Explanted:Qty: 1 on 03/23/2024 at [facility] Right: Ureter [employer] [employer] Airam 09/17/2026 [id number] / / [id number] Procedures Procedure Name Priority Date/Time Associated Diagnosis Comments POC INFLUENZA A/B, COVID-19 ANTIGEN Routine 10/07/2024 4:48 PM INSPECTOR ADVANCED COMPOSITE Influenza A from Last 3 Months Results * (ABNORMAL) POC Influenza A/B, COVID-19 antigen (10/07/2024 4:48 PM INSPECTOR ADVANCED COMPOSITE) Influenza A Ag, POC Positive(A) Negative [facility] Influenza B Ag, POC Negative Negative [facility] COVID-19 Ag POC Presumptive Negative Presumptive Negative, Invalid [facility] Nasopharyngeal 10/07/2024 4: 48 PM INSPECTOR ADVANCED COMPOSITE Lupis Eldridge NP POINT OF CARE TEST ORDERAB LES Final Result [facility] [place] [place] [address], [facility] from Last 3 Months Insurance [facility] MEDICARE T MEDICARE Advance Directives For more information, please contact: [phone] * Full Code (Latest Code Status on File) Date Activated Date Inactivated Comments 08/31/2023 6:40 PM 09/01/2023 6:26 PM Care Teams Supervisor Inspection Department Relationship Specialty Start Date End Date Yovani Jose MD PCP - General 10/14/18 [place] [address] [place] [address] [place] [address] Consulting Physician Urology 09/01/23
--- OUTSIDE RECORDS SUMMARY | 2024-12-06 12:00 | XMS_ITS | Clinical Summary ---
Author Organization [facility] Facility Address [address] [address] Care Team Providers Care Lye Boiler Name Role Phone Yovani Jose MD Primary Care Provider [phone] Medications ciprofloxacin (CIPRO) 500 MG tablet Take 2 tablets (1,000 mg total) by mouth 1 (one) time each day 24 tablet 05/14/2023 Active chlorthalidone 25 MG tablet Take 1 tablet (25 mg total) by mouth 1 (one) time each day in the morning 90 tablet 1 06/08/2023 Active olmesartan (BENICAR) 5 MG tablet Take 2 tablets (10 mg total) by mouth every night 180 tablet 1 10/31/2024 Active Encounters Date Type Department Care Team Description 10/31/2024 1:00 PM CDT Office Visit [facility], [facility] [address] [facility] [address] [place] [phone] Obdulio Burgos DO Stage 3 chronic kidney disease, not otherwise specified (HCC) (Primary Dx); Nephrolithiasis; Benign prostatic hyperplasia; Hypertensive chronic kidney disease; Pure hypercholesterolem ia, not otherwise specified; Diabetes mellitus screening 10/31/[address] [facility], [facility] [address] [facility] [address] [place] [address] Iveth Wang CMA 10/31/[address] [facility], [address] [place] [address] Obdulio Burgos DO 10/30/2024 Documentation Only [facility] [address] [address] Obdulio Burgos DO 10/30/2024 Documentation Only [address] [address] Obdulio Burgos DO 09/21/2024 Documentation Only [address] [address] Obdulio Burgos DO from Last 3 Months Social History Tobacco Use Types Packs/Day Years Used Date Smoking Tobacco: Never Assessed Sex and Gender Information Value Date Recorded Sex Assigned at Not on file Legal Sex Male 4:20 PM EDT Gender Identity Not on file Sexual Orientation Not on file Last Filed Vital Signs Vital Sign Reading Time Taken Comments Blood Pressure 138/90 10/31/2024 1:14 PM CDT Pulse 92 10/31/2024 1:14 PM CDT Temperature 36.1 C (97 F) 05/02/2024 2:39 PM CDT Respiratory Rate 20 10/31/2024 1:14 PM CDT Oxygen Saturation 92% 10/31/2024 1:14 PM CDT Inhaled Oxygen Concentration - - Weight 104 kg (230 lb) 10/31/2024 1:14 PM CDT Height 180.3 cm (5' 11 ) 10/31/2024 1:14 PM CDT Body Mass Index 32.08 10/31/2024 1:14 PM CDT Plan of Treatment Upcoming Encounters Date Type Department Care Team (Late st Contact Info) Description 02/27/2025 12:45 PM CDT Office Visit [facility] [address] [facility] [address] [place] [phone] Obdulio Burgos DO [address] [place] [address] Health Maintenance Due Date Last Done Comments Pneumococcal Vaccine: 50+ Ye ars (1 of 2 - PCV) 1970 Colorectal Cancer Screening: Annual FOBT 2000 Colorectal Cancer Screening: Colonoscopy 2000 Colorectal Cancer Screening: Sigmoidoscopy 2000 Influenza Vaccine (Season Ended) 2025 07/11/20 19 Hepatitis B Vaccine Aged Out No longe r eligible based on patient's age to complete this topic Procedures Procedure Name Priority Date/Time Associated Diagnosis Comments LITHOLINK KIDNEY STONE URINE PANEL Routine 09/19/2024 11:00 PM SPECTROGRAPHER from Last 3 Months Results * (ABNORMAL) Litholink Kidney Stone Urine Panel, 24 Hour (09/19/2024 11:00 PM SPECTROGRAPHER) Cystine, Ur Neg Negative [facility] Urine Volume (Preservative) 1,340 500 - 4,000 mL/24 hr [facility] Calcium Oxalate 2.82(L) 6.00 - 10.00 L [facility] Calcium, 24H Urine 60 <250 mg/24 hr [facility] Oxalate, 24H Ur 32 20 - 40 mg/24 hr [facility] Citrate, 24H Ur 348(L) >450 mg/24 hr [facility] Calcium Phosphate Saturation 0.62 0.50 - 2.00 [facility] pH, 24 Hr Urine 6.297(H) 5.800 - 6.200 [facility] Uric Acid Saturation 0.46 <1.00 [facility] Uric Acid, 24H Ur 561 <800 mg/24 hr [facility] Sodium, 24H Ur 186(H) 50 - 150 mmol/24 hr [facility] Potassium, 24H Ur 56 20 - 100 mmol/24 hr [facility] Magnesium, 24H Ur 97 30 - 120 mg/24 hr [facility] Phosphorus 24 Hour Urine 839 600 - 1,200 mg/24 hr [facility] Ammonia, 24 hr Urine 23 15 - 60 mmol/24 hr [facility] Chloride, 24H Ur 173 70 - 250 mmol/24 hr [facility] Sulfate, 24H Ur 34 20 - 80 meq/24 hr [facility] Urea Nitrogen, 24H Ur 9.39 6.00 - 14.00 g/24 hr [facility] Protein Catabolic Rate, (14) CANCELED g/kg/24 hr [facility] Comment: Test not performed A required component of the calculation is missing. As a result, this calculation cannot be performed. Result canceled by the ancillary. Creatinine in 24 hour Urine 1,750 Not Applic. mg/24 hr [facility] Creatinine/KG Body Weight CANCELED mg/24 hr/kg [facility] Comment: Test not performed A required component of the calculation is missing. As a result, this calculation cannot be performed. Result canceled by the ancillary. Calcium/KG Body Weight CANCELED mg/24 hr/kg [facility] Comment: Test not performed A required component of the calculation is missing. As a result, this calculation cannot be performed. Result canceled by the ancillary. Calcium/Creat.R atio 34 34 - 196 mg/g creat [facility] Comment Note [facility] Comment: The date and/or time of collection was not indicated on the collection form as required by state and federal law. The date and time of collection were adjusted based on the receipt date of the specimen if not supplied, or based on limited data supplied by patient. PDF . [facility] 09/19/2024 11:0 0 PM SPECTROGRAPHER 09/25/2024 11:00 PM SPECTROGRAPHER Obdulio Burgos DO LAB URINE ORDERABLES Edited Result - Final [facility] [address] [place] [address] from Last 3 Months Insurance [employer] MCR Adv PPO ([id number]) Advance Directives Documents on File Type Date Recorded Patient Seat Installer Expl anation Advance Care Planning 04/28/2023 12:53 PM Care Teams Lye Boiler Relationship Specialty Start Date End Date Yovani Jose MD [address] [facility] [address] [place] [phone] PCP - General Internal Medicine 01/12/23
[2024-12-06 12:09] LABS: Cholesterol 210 mg/dL (0-200); HDL Direct 40 mg/dL; Triglycerides 241 mg/dL (<150)
[2024-12-06 12:20] LABS: LDL Cholesterol Direct 104 mg/dL
[2024-12-06 12:43] LABS: Prostate Specific Antigen 0.6 ng/mL (< OR = 4.0)
== END 2024-12-06 10:42 | disposition home or self-care (01) ==
PROVIDERS: PCP Internal Medicine; Visit Provider Internal Medicine
DX: N42.9 Disorder of prostate, unspecified (principal); E78.00 Pure hypercholesterolemia, unspecified
CPT/HCPCS: 36415; 80061; 84153

== ENCOUNTER 2025-02-13 10:37 | Outpatient (CLI) | payer MEDICARE, SELFPAY ==
--- NOTE | ~2025-02-13 | XR_ITS ---
EXAM/PROCEDURE: XR abdomen/kub 1V - 02/13/2025 11:04 CDT HISTORY: 74 years old Male with RIGHT KIDNEY STONE COMPARISON: None available. TECHNIQUE: AP view(s) of the abdomen. FINDINGS: The bowel gas pattern is normal. There is no evidence for obstruction. No radiopaque calculus seen. M ild stool burden. No free intraperitoneal air is identified on this supine radiograph. The visualized soft tissue shadows are unremarkable. No gross bony abnormalities are seen. Visualized portions of lung bases are clear. IMPRESSION: No acute process. Reviewed, dictated and finalized at location A. IMPRESSION: No acute process.
--- OUTSIDE RECORDS SUMMARY | 2025-02-13 10:43 | XMS_ITS | Clinical Summary ---
Author Organization [facility] Facility Address [address] [address] Care Team Providers Care Treating Engineer Helper Name Role Phone Yovani Jose MD Primary Care Provider [phone] Medications ciprofloxacin (CIPRO) 500 MG tablet Take [...] every night 180 tablet 1 10/31/2024 Active Social History Tobacco Use Types Packs/Day [...] 1:14 PM CDT Height 180.3 cm (5' 11) 10/31/2024 1:14 PM CDT Body Mass Index 32.08 10/31/2024 1:14 PM CDT Plan of Treatment Upcoming Encounters Date Type Department Care Team (Late st Contact Info) Description 02/27/2025 12:45 PM CDT Office Visit [facility], [facility] [address] [facility] [address] [place] [phone] Obdulio Burgos DO [address] [place] [address] Health Maintenance Due Date Last Done Comments Pneumococcal Vaccine: 50+ Ye ars (1 of 2 - PCV) 1970 Colorectal Cancer Screening: Annual FOBT 2000 Colorectal Cancer Screening: Colonoscopy 2000 Colorectal Cancer Screening: Sigmoidoscopy 2000 Influenza Vaccine (#1) 2025 07/11/2019 Hepatitis B Vaccine Aged Out No longe r eligible based on patient's age to complete this topic Insurance [employer] MCR Adv PPO ([id number]) Advance Directives Documents on File Type Date Recorded Patient Credit Counselor Expl anation Advance Care Planning 04/28/2023 12:53 PM Care Teams Treating Engineer Helper Relationship Specialty Start Date End Date Yovani Jose MD [address] [place] [phone] PCP - General Internal Medicine 01/12/23
--- OUTSIDE RECORDS SUMMARY | 2025-02-13 10:43 | XMS_ITS | Referral Summary ---
Author Organization [facility] Address [address] [place] [address] Care Team Providers Care Tubing Supervisor Name Role Phone Yovani Jose MD Primary Care Provider Karlos Bailey MD Unavailable [phone] Allergies No known active allergies Medications atorvastatin [...] on file Legal Sex Male 2:19 AM PHOTOGRAPHER NEWS Gender Identity Not on file Sexual Orientation Not on file Last Filed Vital Signs Vital Sign Reading Time Taken Comments Blood Pressure 158/85 10/07/2024 4:43 PM PHOTOGRAPHER NEWS Pulse 95 10/07/2024 4:43 PM PHOTOGRAPHER NEWS Temperature 37.2 C (99 F) 10/07/2024 4:43 PM PHOTOGRAPHER NEWS Respiratory Rate 19 10/07/2024 4:43 PM PHOTOGRAPHER NEWS Oxygen Saturation 96% 10/07/2024 4:43 PM PHOTOGRAPHER NEWS Inhaled Oxygen Concentration - - Weight 103.9 kg (229 lb) 10/07/2024 4:43 PM PHOTOGRAPHER NEWS Height 180.3 cm (5' 11) 10/07/2024 4:43 PM PHOTOGRAPHER NEWS Body Mass Index 31.94 10/07/2024 4:43 PM PHOTOGRAPHER NEWS Plan of Treatment Not on file Medical Devices Implanted Type Area Fire Prevention Engineer Device Identifier Shelf Expiration Date Model / Serial / Lot [place] [employer] Airam Contour 6fr 26cm Large Inner Lumen Low Profile Bladder Ochoa Taper Latex Free 180-223 - [id number] Implanted:Qty: 1 on 03/23/2024 by Karlos Bailey MD at [facility] Right: Ureter [place] [employer] Airam 10/24/2026 [id number] / / [id number] Explanted Type Area Fire Prevention Engineer Device Identifier Shelf Expiration Date Model / Serial / Lot [place] [employer] Airam Contour 6fr 26cm Large Inner Lumen Low Profile Bladder Ochoa Taper Latex Free 180-223 - [id number] Implanted:Qty: 1 on 03/03/2024 by Karlos Bailey MD at [facility] Explanted:Qty: 1 on 03/23/2024 at [facility] Right: Ureter [place] [employer] Airam 09/17/2026 [id number] / / [id number] Insurance [employer] MEDICARE Advance Directives For more information, please contact: [phone] * Full Code (Latest Code Status on File) Date Activated Date Inactivated Comments 08/31/2023 6:40 PM 09/01/2023 6:26 PM Care Teams Tubing Supervisor Relationship Specialty Start Date End Date Yovani Jose MD PCP - General 10/14/18 Karlos aBiley MD Consulting Physician Urology 09/01/23
--- OUTSIDE RECORDS SUMMARY | 2025-02-13 10:43 | XMS_ITS | Clinical Summary ---
Author Organization [facility] Address [address] [place] [address] Care Team Providers Care Leather Roller Name Role Phone Yovani Jose MD Primary Care Provider Karlos Bailey MD Unavailable [phone] Allergies No known active allergies Medications atorvastatin [...] on file Legal Sex Male 2:19 AM PATTERN WORKER Gender Identity Not on file Sexual Orientation Not on file Obstetrics History Last Filed Vital Signs Vital Sign Reading Time Taken Comments Blood Pressure 158/85 10/07/2024 4:43 PM PATTERN WORKER Pulse 95 10/07/2024 4:43 PM PATTERN WORKER Temperature 37.2 C (99 F) 10/07/2024 4:43 PM PATTERN WORKER Respiratory Rate 19 10/07/2024 4:43 PM PATTERN WORKER Oxygen Saturation 96% 10/07/2024 4:43 PM PATTERN WORKER Inhaled Oxygen Concentration - - Weight 103.9 kg (229 lb) 10/07/2024 4:43 PM PATTERN WORKER Height 180.3 cm (5' 11) 10/07/2024 4:43 PM PATTERN WORKER Body Mass Index 31.94 10/07/2024 4:43 PM PATTERN WORKER Plan of Treatment Health Maintenance Due Date Last Done Comments Colon Cancer Screening-Colonoscopy 1951 Depression Screening 1951 Hepatitis C Screening 1951 DTaP/Tdap/Td Vaccine (1 - Tdap) 1962 Hepatitis B Screening 1969 Pneumococcal vaccine 65+ (1 of 1 - PCV) 2001 Zoster Vaccine (1 of 2) 2001 Well Visit 65+ 2016 Covid-19 Vaccine (3 - season) 04/09/202406/2021, 10/22/2020 Fall Risk Assessment 03/15/2025 03/15/2024, 02/03/2024, 09/01/2023 Influenza Vaccine (Season Ended) 2025 07/11/2019, 06/03/2018, 06/11/2017 Medical Devices Implanted Type Area Alum Plant Supervisor Device Identifier Shelf Expiration Date Model / Serial / Lot [place] [employer] Airam Contour 6fr 26cm Large Inner Lumen Low Profile Bladder Ochoa Taper Latex Free 180-223 - [id number] Implanted:Qty: 1 on 03/23/2024 by Karlos Bailey MD at [facility] Right: Ureter [place] [employer] Airam 10/24/2026 [id number] / / [id number] Explanted Type Area Alum Plant Supervisor Device Identifier Shelf Expiration Date Model / Serial / Lot [employer] Airam Contour 6fr 26cm Large Inner Lumen Low Profile Bladder Ochoa Taper Latex Free 180-223 - [id number] Implanted:Qty: 1 on 03/03/2024 by Karlos Bailey MD at [facility] Explanted:Qty: 1 on 03/23/2024 at [facility] Right: Ureter [place] [employer] Airam 09/17/2026 [id number] / / [id number] Insurance AET MEDICARE [employer] MEDICARE Advance Directives For more information, please contact: [phone] * Full Code (Latest Code Status on File) Date Activated Date Inactivated Comments 08/31/2023 6:40 PM 09/01/2023 6:26 PM Care Teams Leather Roller Relationship Specialty Start Date End Date Yovani Jose MD PCP - General 10/14/18 Karlos Bailey MD Consulting Physician Urology 09/01/23
--- OUTSIDE RECORDS SUMMARY | 2025-02-13 10:44 | XMS_ITS | Data Portability ---
Author Organization [place] - [facility] [employer], Main Office Address [address] [place] [address] Care Team Providers Care Call Center Agent Name Role Phone MITUL JOSE Primary Care Provider Assessment No assessment recorded. Plan of Treatment Reminders Order Date Submit Date Provider Last Modified By Organization Details Last Modified Time Details Appointments None recorded. Lab lipid panel, serum 025 025 [facility] Outpatient Lab, [address] [place], [address], 5 13:16:44 PSA, serum or plasma 025 025 [facility], [address] [place], [address], 5 13:16:44 lipid panel, serum 024 024 [facility], [address] [place], [address], 4 17:28:17 CMP, serum or plasma 024 024 [facility], [address] [place], [address], 4 17:28:18 TSH, serum or plasma 024 024 [email or web address] [facility], [address] [place], [address], 4 17:28:18 CBC w/ auto diff 024 024 [email or web address] [facility] Outpatient Lab, [address] [place], [address], 4 17:28:18 T4, free, serum 024 024 [email or web address] [facility] Out[facility] Lab, [address] [place], [address], 4 17:28:18 PSA, serum or plasma 024 024 [email or web address] [facility] Out[facility] Lab, [address] [place], [address], 4 17:28:18 CMP, serum or plasma 023 023 [facility] Lab, [address] [place], [address], 3 09:09:25 CBC w/ auto diff 023 023 [facility] Out[facility] Lab, [address] [place], [address], 3 09:09:26 phosphoru s, serum or plasma 023 023 [facility] Lab, [address] [place], [address], 3 09:09:23 PTH (parathyr oid hormone), intact, serum or plasma 023 023 [email or web address] [facility] Out[facility] Lab, [address] [place], [address], 3 14:49:16 uric acid, serum or plasma 023 023 [facility] Lab, [address] [place], [address], 3 09:09:24 vitamin D, 25-hydrox y, total, serum 023 023 [facility] - Outpatient Lab, [address] [place], [address], 09:09:26 Referral None recorded. Procedures None recorded. Surgeries None recorded. Imaging None recorded. Medication Orders None recorded. Patient TargetsNo targets recorded. Patient Instructions Encounter Date Encounter Id Patient Instructions Last Modified By Organization Details Last Modified Time 03/30/2023 [id number] dementia rating scale-2* Not available 03/30/2023 11:06:06 alcohol misuse* [email or web address] Not available 03/30/2023 11:06:06 depression screening* [email or web address] Not available 03/30/2023 11:06:06 multi-dimensiona l health assessment questionnaire* Not available 03/30/2023 11:06:06 Personalized a lt Plan and Screening Recommendations Advance Directives - Do you have one? No Not interested at this time Advance Directives - Do we have your advance directive on file in your health record? Primary Prevention/Interven tion (prevents or decreases the chance of common diseases from occurring) Smoking Risk: Non Smoker Alcohol Misuse Screening: Negative Weight: Overweight try to lose 10% of your body weight Physical activity: Need more exercise/physical activity Nutrition: Average Eat heart healthy diet Fall Risk (screened today): Low Vaccines Pneumococcal: Recommended today, but you have declined Influenza: Your next one in the fall of this year Chronic Disease Risks Stroke: Intermediate Risk Active diagnosis, Continue current treatment plan Heart Attack: Intermediate Risk Active diagnosis, Continue current treatment plan Clogging of the Arteries: Intermediate Risk Active diagnosis, Continue current treatment plan Diabetes: Intermediate Risk Drastically limit sugar and products made with any type of flour (bread, pasta, cereal, cookies, crackers, etc.) Secondary Prevention/Interven tion (detects treatable diseases before they may cause symptoms, disability, or ) Prostate Cancer Screening: up to date Colon Cancer Screening: Colonoscopy due 2023 Date Screening Last Performed: __2019__ Eye Disease Screening: Your next exam in: goes every 3 yrs Dementia Risk: Low I have no recommendations Depression Screening: Negative I have no recommendations [email or web address] Not available 03/30/2023 10:48:40 Medicare wellnes s [...] left shoulder Not available 03/30/2023 11:05:39 09/28/2023 [id number] Renal calculi-hyperlipide osmar -family history of colorectal cancer -mild obesity. Plan to check blood work in the form of CBC, CMP, lipid, thyroid and PSA. Continue on current Rx follow-up six months. Portions of the record may have been created with voice recognition software. Occasional wrong-word or [id number] substitutions may have occurred due to the inherent limitations of voice recognition software. Read the chart carefully and recognize, using context, where substitutions have occurred. [email or web address] Not available 09/28/2023 10:57:27 11/23/2024 [id number] Follow-up essent ial hypertension, hyperlipidemia, chronic renal [...] with voice recognition software. Occasional wrong-word or [id number] substitutions may have occurred due to the inherent limitations of voice recognition software. Read the chart carefully and recognize, using context, where substitutions may have occurred. Created: Mitul Jose M.D. 11.23.2024 10:00 AM [email or web address] Not available 11/23/2024 11:00:52 Reason for Referral None Reported. Results Created Date Observation Date Name Description Value Unit Range Abnormal Flag Note LastModifiedBy Organization Detail LastModifiedTime 11/04/1911/04/2022 PROTE IN, TOTAL , 24 HOUR URINE (W/O CREAT ININE ) protein, total, 24 HR ur 160 mg/24 _h <150 high URINE VOLUM E: 1600/ 24 Not Available [facility] [address] [place], [place], [address], 11/04/2022 14:34:35 01/03/20 23 01/06/2023 CREAT ININE CLEAR ANCE creatinine 1.71 mg/dL 0.70-1 .28 high Not Available [address], [address], 01/06/2023 14:29:04 01/03/20 23 01/06/2023 CREAT ININE CLEAR ANCE eGFR 42 mL/mi n/1.7 3m2 > or = 60 low The eGFR is based on the CKD-E PI 2020 equat ion. To calcu late the new eGFR from a previ ous Creat inine or Cysta tin C resul t, go to https ://anthony gould.kandace hodge/debra monahan s/ kdoqi /gfr% 5Fcal culat or Not Available [address], [address], 01/06/2023 14:29:04 01/03/20 23 01/06/2023 CREAT ININE CLEAR ANCE creatinine, 24 hour urine 1.28 g/24_ h 0.50-2 .15 normal Not Available [address], [address], 01/06/2023 14:29:04 01/03/20 23 01/06/2023 CREAT ININE CLEAR ANCE body surface area 2.17 Not Available [address], [address], 01/06/2023 14:29:04 01/03/20 23 01/06/2023 CREAT ININE CLEAR ANCE creatinine clearance 41 mL/mi n 85-125 low Not Available [address], [address], 01/06/2023 14:29:04 01/03/20 23 01/06/2023 CREAT ININE CLEAR ANCE height feet 5 FT Not Available [address], [address], 01/06/2023 14:29:04 01/03/20 23 01/06/2023 CREAT ININE CLEAR ANCE height inches 11 in Not Available [facility] [address], [address], 01/06/2023 14:29:04 01/03/20 23 01/06/2023 CREAT ININE CLEAR ANCE weight pounds 215 Not Available [address], [address], 01/06/2023 14:29:04 04/07/20 23 04/08/2023 PTH, INTAC [...] Low Maria Guadalupe l High Not Available [address], [address], 04/08/2023 09:09:22 04/07/20 23 04/08/2023 PTH, INTAC T AND CALCI UM calcium 9.5 mg/dL 8.6-10 .3 normal Not Available [address], [address], 04/08/2023 09:09:22 04/07/20 23 04/08/2023 PHOSP HATE ( PHOSP HORUS ) phosphate ( phosphorus) 3.0 mg/dL 2.1-4. 3 normal Not Available [address] [place], [address], 04/08/2023 09:09:23 04/07/20 23 04/08/2023 URIC ACID uric acid 6.7 mg/dL 4.0-8. 0 normal Thera mustapha vences targe t for gout patie nts: <6.0 mg/dL Not Available [address], [address], 04/08/2023 09:09:24 04/07/20 23 04/08/2023 COMPR EHENS UZIEL METAB OLIC PANEL glucose 88 mg/dL 65-99 normal Fasti ng refer ence inter ricky Not Available [address], [address], 04/08/2023 09:09:25 04/07/20 23 04/08/2023 COMPR EHENS UZIEL METAB OLIC PANEL urea nitrogen (BUN) 23 mg/dL 7-25 normal Not Available [address], [address], 04/08/2023 09:09:25 04/07/20 23 04/08/2023 COMPR EHENS UZIEL METAB OLIC PANEL creatinine 1.90 mg/dL 0.70-1 .28 high Not Available [address], [address], 04/08/2023 09:09:25 04/07/20 23 04/08/2023 COMPR EHENS UZIEL METAB OLIC PANEL eGFR 37 mL/mi n/1.7 3m2 > or = 60 low Not Available [address], [address], 04/08/2023 09:09:25 04/07/2004/08/2023 COMPR EHENS UZIEL METAB OLIC PANEL BUN/creatini ne ratio 12 (calc ) 6-22 normal Not Available [address], [address], 04/08/2023 09:09:25 04/07/20 23 04/08/2023 COMPR EHENS UZIEL METAB OLIC PANEL sodium 141 mmol/ L 135-14 6 normal Not Available [address], [address], 04/08/2023 09:09:25 04/07/20 23 04/08/2023 COMPR EHENS UZIEL METAB OLIC PANEL potassium 5.0 mmol/ L 3.5-5. 3 normal Not Available [address], [address], 04/08/2023 09:09:25 04/07/20 23 04/08/2023 COMPR EHENS UZIEL METAB OLIC PANEL chloride 105 mmol/ L 98-110 normal Not Available [address], [address], 04/08/2023 09:09:25 04/07/20 23 04/08/2023 COMPR EHENS UZIEL METAB OLIC PANEL carbon dioxide 26 mmol/ L 20-32 normal Not Available [address], [address], 04/08/2023 09:09:25 04/07/20 23 04/08/2023 COMPR EHENS UZIEL METAB OLIC PANEL calcium 9.5 mg/dL 8.6-10 .3 normal Not Available [address], [address], 04/08/2023 09:09:25 04/07/20 23 04/08/2023 COMPR EHENS UZIEL METAB OLIC PANEL protein, total 7.2 g/dL 6.1-8. 1 normal Not Available [address], [address], 04/08/2023 09:09:25 04/07/20 23 04/08/2023 COMPR EHENS UZIEL METAB OLIC PANEL albumin 4.0 g/dL 3.6-5. 1 normal Not Available [address] [address] [place], [address], 04/08/2023 09:09:25 04/07/20 23 04/08/2023 COMPR EHENS UZIEL METAB OLIC PANEL globulin 3.2 g/dL_ (calc ) 1.9-3. 7 normal Not Available [address] [address] [place], [address], 04/08/2023 09:09:25 04/07/20 23 04/08/2023 COMPR EHENS UZIEL METAB OLIC PANEL albumin/glob ulin ratio 1.3 (calc ) 1.0-2. 5 normal Not Available [address], [address], 04/08/2023 09:09:25 04/07/20 23 04/08/2023 COMPR EHENS UZIEL METAB OLIC PANEL bilirubin, total 0.4 mg/dL 0.2-1. 2 normal Not Available [address] [address] [place], [address], 04/08/2023 09:09:25 04/07/20 23 04/08/2023 COMPR EHENS UZIEL METAB OLIC PANEL alkaline phosphatase 83 U/L 35-144 normal Not Available [address] [address] [place], [address], 04/08/2023 09:09:25 04/07/20 23 04/08/2023 COMPR EHENS UZIEL METAB OLIC PANEL AST 14 U/L 10-35 normal Not Available [address], [address], 04/08/2023 09:09:25 04/07/20 23 04/08/2023 COMPR EHENS UZIEL METAB OLIC PANEL ALT 17 U/L 9-46 normal Not Available [address] [address] [place], [address], 04/08/2023 09:09:25 04/07/20 23 04/08/2023 CBC (INCL UDES DIFF/ PLT) white blood cell count 7.6 thous and/u L 3.8-10 .8 normal Not Available [address], [address], 04/08/2023 09:09:26 04/07/2004/08/2023 CBC (INCL UDES DIFF/ PLT) red blood cell count 4.76 bre on/uL 4.20-5 .80 normal Not Available [address], [address], 04/08/2023 09:09:26 04/07/2004/08/2023 CBC (INCL UDES DIFF/ PLT) hemoglobin 14.1 g/dL 13.2-1 7.1 normal Not Available [address], [address], 04/08/2023 09:09:26 04/07/20 23 04/08/2023 CBC (INCL UDES DIFF/ PLT) hematocrit 42.2 % 38.5-5 0.0 normal Not Available [address], [address], 04/08/2023 09:09:26 04/07/2004/08/2023 CBC (INCL UDES DIFF/ PLT) MCV 88.7 fL 80.0-1 00.0 normal Not Available [address], [address], 04/08/2023 09:09:26 04/07/2004/08/2023 CBC (INCL UDES DIFF/ PLT) MCH 29.6 pg 27.0-3 3.0 normal Not Available [address], [address], 04/08/2023 09:09:26 04/07/20 23 04/08/2023 CBC (INCL UDES DIFF/ PLT) MCHC 33.4 g/dL 32.0-3 6.0 normal Not Available [address], [address], 04/08/2023 09:09:26 04/07/20 23 04/08/2023 CBC (INCL UDES DIFF/ PLT) RDW 13.6 % 11.0-1 5.0 normal Not Available [address], [address], 04/08/2023 09:09:26 04/07/20 23 04/08/2023 CBC (INCL UDES DIFF/ PLT) platelet count 258 thous and/u L 140-40 0 normal Not Available [address], [address], 04/08/2023 09:09:26 04/07/20 23 04/08/2023 CBC (INCL UDES DIFF/ PLT) MPV 11.5 fL 7.5-12 .5 normal Not Available [address], [address], 04/08/2023 09:09:26 04/07/20 23 04/08/2023 CBC (INCL UDES DIFF/ PLT) absolute neutrophils 5685 cells /uL 1500-7 800 normal Not Available [address], [address], 04/08/2023 09:09:26 04/07/20 23 04/08/2023 CBC (INCL UDES DIFF/ PLT) absolute lymphocytes 1186 cells /uL 850-39 00 normal Not Available [address], [address], 04/08/2023 09:09:26 04/07/2004/08/2023 CBC (INCL UDES DIFF/ PLT) absolute monocytes 593 cells /uL 200-95 0 normal Not Available [address], [address], 04/08/2023 09:09:26 04/07/20 23 04/08/2023 CBC (INCL UDES DIFF/ PLT) absolute eosinophils 84 cells /uL 15-500 normal Not Available [facility] [address], [address], 04/08/2023 09:09:26 04/07/20 23 04/08/2023 CBC (INCL UDES DIFF/ PLT) absolute basophils 53 cells /uL 0-200 normal Not Available [facility] [address], [address], 04/08/2023 09:09:26 04/07/20 23 04/08/2023 CBC (INCL UDES DIFF/ PLT) neutrophils 74.8 % normal Not Available [facility] [address], [address], 04/08/2023 09:09:26 04/07/20 23 04/08/2023 CBC (INCL UDES DIFF/ PLT) lymphocytes 15.6 % normal Not Available [facility] [address], [address], 04/08/2023 09:09:26 04/07/20 23 04/08/2023 CBC (INCL UDES DIFF/ PLT) monocytes 7.8 % normal Not Available [facility] [address], [address], 04/08/2023 09:09:26 04/07/20 23 04/08/2023 CBC (INCL UDES DIFF/ PLT) eosinophils 1.1 % normal Not Available [facility] [address], [address], 04/08/2023 09:09:26 04/07/20 23 04/08/2023 CBC (INCL UDES DIFF/ PLT) basophils 0.7 % normal Not Available [facility] [address], [address], 04/08/2023 09:09:26 04/07/20 23 04/08/2023 VITAM IN D,25- OH,TO MELINDA,I A vitamin D,25-oh,tota diegoia 42 NG/mL 30-100 normal Vitam in D [...] /MS is recom aram d: order code 74134 (brandie ents >2yrs ). See Note 1 Note 1 For addit ional infor trent lu refer to http: //[facility] georgina Fangia gnost ics.c om/fa q/FAQ 199 (This link is being provi ded for infor monik gomez/ jame cortez purpo ses only. ) Not Available [facility] [address] [address] [place], [address], 04/08/2023 09:09:26 10/27/19 24 10/28/2023 LIPID PANEL , STAND PILY cholesterol, total 207 mg/dL <200 high Not Available [facility] [address] [address] [place], [address], 10/28/2023 07:25:25 10/27/19 24 10/28/2023 LIPID PANEL , STAND PILY HDL cholesterol 45 mg/dL > or = 40 normal Not Available [facility] [address] [address] [place], [address], 10/28/2023 07:25:25 10/27/19 24 10/28/2023 LIPID PANEL , STAND PILY triglyceride s 267 mg/dL <150 high If a non-f astin g speci men was colle cted, consi diane repea t trigl yceri de testi ng on a fasti ng speci men if clini prateek indic ated. Pradeep jaffe et al. J. of Clin. Lipid ol. 2015; 9:129 -169. Not Available [facility] [address] [place] [address], [address], 10/28/2023 07:25:25 10/27/19 24 10/28/2023 LIPID PANEL [...] lated using the Lisa n-Hop kins calcu latamy n, which is a valid ated novel metho d provi ding rolly r accur acy than the Fried jaz equat ion in the estim ation of LDL-C . Lisa echeverria SS et al. BASSEM. 2013; 310(1 9): 2061- 2068 (http ://ed ucati on.Croak.it. com/f aq/FA Q164) Not Available [facility] [address] [place], [address], 10/28/2023 07:25:25 10/27/19 24 10/28/2023 LIPID PANEL , STAND PILY chol/HDLC ratio 4.6 (calc ) <5.0 normal Not Available [facility] [address] [facility] [place], [address], 10/28/2023 07:25:25 10/27/19 24 10/28/2023 LIPID PANEL , STAND PILY non HDL cholesterol 162 mg/dL _(zohreh c) <130 high For patie nts with diabe belen plus 1 major ASCVD risk facto r, treat ing to a non-H DL-C goal of <100 mg/dL (LDL- C of <70 mg/dL ) is consi dered a thera peuti c optio n. Not Available [address], [address], 10/28/2023 07:25:25 10/27/19 24 10/28/2023 COMPR EHENS UZIEL METAB OLIC PANEL glucose 93 mg/dL 65-99 normal Fasti ng refer ence inter ricky Not Available [address], [address], 10/28/2023 07:25:26 10/27/19 24 10/28/2023 COMPR EHENS UZIEL METAB OLIC PANEL urea nitrogen (BUN) 24 mg/dL 7-25 normal Not Available [address], [address], 10/28/2023 07:25:26 10/27/19 24 10/28/2023 COMPR EHENS UZIEL METAB OLIC PANEL creatinine 1.69 mg/dL 0.70-1 .28 high Not Available [address], [address], 10/28/2023 07:25:26 10/27/19 24 10/28/2023 COMPR EHENS UZIEL METAB OLIC PANEL eGFR 43 mL/mi n/1.7 3m2 > or = 60 low Not Available [address], [address], 10/28/2023 07:25:26 10/27/19 24 10/28/2023 COMPR EHENS UZIEL METAB OLIC PANEL BUN/creatini ne ratio 14 (calc ) 6-22 normal Not Available [address], [address], 10/28/2023 07:25:26 10/27/19 24 10/28/2023 COMPR EHENS UZIEL METAB OLIC PANEL sodium 139 mmol/ L 135-14 6 normal Not Available [address], [address], 10/28/2023 07:25:26 10/27/19 24 10/28/2023 COMPR EHENS UZIEL METAB OLIC PANEL potassium 5.3 mmol/ L 3.5-5. 3 normal Not Available [address], [address], 10/28/2023 07:25:26 10/27/19 24 10/28/2023 COMPR EHENS UZIEL METAB OLIC PANEL chloride 105 mmol/ L 98-110 normal Not Available [address], [address], 10/28/2023 07:25:26 10/27/19 24 10/28/2023 COMPR EHENS UZIEL METAB OLIC PANEL carbon dioxide 28 mmol/ L 20-32 normal Not Available [address], [address], 10/28/2023 07:25:26 10/27/19 24 10/28/2023 COMPR EHENS UZIEL METAB OLIC PANEL calcium 9.4 mg/dL 8.6-10 .3 normal Not Available [address], [address], 10/28/2023 07:25:26 10/27/19 24 10/28/2023 COMPR EHENS UZIEL METAB OLIC PANEL protein, total 6.8 g/dL 6.1-8. 1 normal Not Available [address], [address], 10/28/2023 07:25:26 10/27/19 24 10/28/2023 COMPR EHENS UZIEL METAB OLIC PANEL albumin 3.9 g/dL 3.6-5. 1 normal Not Available [address], [address], 10/28/2023 07:25:26 10/27/19 24 10/28/2023 COMPR EHENS UZIEL METAB OLIC PANEL globulin 2.9 g/dL_ (calc ) 1.9-3. 7 normal Not Available [address], [address], 10/28/2023 07:25:26 10/27/19 24 10/28/2023 COMPR EHENS UZIEL METAB OLIC PANEL albumin/glob ulin ratio 1.3 (calc ) 1.0-2. 5 normal Not Available [address], [address], 10/28/2023 07:25:26 10/27/19 24 10/28/2023 COMPR EHENS UZIEL METAB OLIC PANEL bilirubin, total 0.5 mg/dL 0.2-1. 2 normal Not Available [address], [address], 10/28/2023 07:25:26 10/27/19 24 10/28/2023 COMPR EHENS UZIEL METAB OLIC PANEL alkaline phosphatase 81 U/L 35-144 normal Not Available [address], [address], 10/28/2023 07:25:26 10/27/19 24 10/28/2023 COMPR EHENS UZIEL METAB OLIC PANEL AST 13 U/L 10-35 normal Not Available [address], [address], 10/28/2023 07:25:26 10/27/19 24 10/28/2023 COMPR EHENS UZIEL METAB OLIC PANEL ALT 16 U/L 9-46 normal Not Available [address], [address], 10/28/2023 07:25:26 10/27/19 24 10/28/2023 CBC (INCL UDES DIFF/ PLT) white blood cell count 6.7 thous and/u L 3.8-10 .8 normal Not Available [address], [address], 10/28/2023 07:25:27 10/27/19 24 10/28/2023 CBC (INCL UDES DIFF/ PLT) red blood cell count 4.77 bre on/uL 4.20-5 .80 normal Not Available [address], [address], 10/28/2023 07:25:27 10/27/19 24 10/28/2023 CBC (INCL UDES DIFF/ PLT) hemoglobin 14.1 g/dL 13.2-1 7.1 normal Not Available [address], [address], 10/28/2023 07:25:27 10/27/19 24 10/28/2023 CBC (INCL UDES DIFF/ PLT) hematocrit 42.3 % 38.5-5 0.0 normal Not Available [address], [address], 10/28/2023 07:25:27 10/27/19 24 10/28/2023 CBC (INCL UDES DIFF/ PLT) MCV 88.7 fL 80.0-1 00.0 normal Not Available [address], [address], 10/28/2023 07:25:27 10/27/19 24 10/28/2023 CBC (INCL UDES DIFF/ PLT) MCH 29.6 pg 27.0-3 3.0 normal Not Available [address], [address], 10/28/2023 07:25:27 10/27/19 24 10/28/2023 CBC (INCL UDES DIFF/ PLT) MCHC 33.3 g/dL 32.0-3 6.0 normal Not Available [address], [address], 10/28/2023 07:25:27 10/27/19 24 10/28/2023 CBC (INCL UDES DIFF/ PLT) RDW 12.9 % 11.0-1 5.0 normal Not Available [address], [address], 10/28/2023 07:25:27 10/27/19 24 10/28/2023 CBC (INCL UDES DIFF/ PLT) platelet count 261 thous and/u L 140-40 0 normal Not Available [address], [address], 10/28/2023 07:25:27 10/27/19 24 10/28/2023 CBC (INCL UDES DIFF/ PLT) MPV 11.5 fL 7.5-12 .5 normal Not Available [address], [address], 10/28/2023 07:25:27 10/27/19 24 10/28/2023 CBC (INCL UDES DIFF/ PLT) absolute neutrophils 4268 cells /uL 1500-7 800 normal Not Available [address], [address], 10/28/2023 07:25:27 10/27/19 24 10/28/2023 CBC (INCL UDES DIFF/ PLT) absolute lymphocytes 1554 cells /uL 850-39 00 normal Not Available [address], [address], 10/28/2023 07:25:27 10/27/19 24 10/28/2023 CBC (INCL UDES DIFF/ PLT) absolute monocytes 683 cells /uL 200-95 0 normal Not Available [address], [address], 10/28/2023 07:25:27 10/27/19 24 10/28/2023 CBC (INCL UDES DIFF/ PLT) absolute eosinophils 147 cells /uL 15-500 normal Not Available [address], [address], 10/28/2023 07:25:27 10/27/19 24 10/28/2023 CBC (INCL UDES DIFF/ PLT) absolute basophils 47 cells /uL 0-200 normal Not Available [address], [address], 10/28/2023 07:25:27 10/27/19 24 10/28/2023 CBC (INCL UDES DIFF/ PLT) neutrophils 63.7 % normal Not Available [facility] [address], [address], 10/28/2023 07:25:27 10/27/19 24 10/28/2023 CBC (INCL UDES DIFF/ PLT) lymphocytes 23.2 % normal Not Available [address], [address], 10/28/2023 07:25:27 10/27/19 24 10/28/2023 CBC (INCL UDES DIFF/ PLT) monocytes 10.2 % normal Not Available [facility] [address], [address], 10/28/2023 07:25:27 10/27/19 24 10/28/2023 CBC (INCL UDES DIFF/ PLT) eosinophils 2.2 % normal Not Available [facility] [address], [address], 10/28/2023 07:25:27 10/27/19 24 10/28/2023 CBC (INCL UDES DIFF/ PLT) basophils 0.7 % normal Not Available [facility] [address], [address], 10/28/2023 07:25:27 10/27/19 24 10/28/2023 T4, FREE T4, free 0.9 NG/dL 0.8-1. 8 normal Not Available [facility] [address], [address], 10/28/2023 07:25:28 10/27/19 24 10/28/2023 TSH TSH 1.62 mIU/L 0.40-4 .50 normal Not Available [facility] [address] [place], [place] [address], [address], 10/28/2023 07:25:29 10/27/19 24 10/28/2023 PSA, TOTAL [...] This test was perfo rmed using the Wattpad chemi lumin escen t metho d. Value s obtai logan from diffe rent assay metho ds canno t be used inter shah eably . PSA level s, regar dless of value , shoul d not be inter prete d as absol destinee evide nce of the prese nce or absen ce of disea se. Not Available [facility] [address] [place], [address], 10/28/2023 07:25:30 01/19/20 23 01/18/2023 US, kidne y No observ ation record ed. [address], [address], 01/18/2023 16:01:51 03/30/20 23 XR, shoul diane, 2 or more view [facility] [address] [place] [address] Patien t Name: DAJUAN LOPEZ LEXUS Access ion #: [id number] Sex: M : 1949 0 Dictat [...] at 2022 11:30: 33 AM Page [address] (Imaging) [address] [place], [address], 03/30/2023 12:40:13 08/24/19 24 08/20/2023 lab* No observ ation record [place]. [place] [id number] Not Available 2023 15:57:17 08/24/19 lab* No observ ation record [place]. [place] [id number] Not Available 2023 15:57:17 12/30/19 24 12/30/2023 XR, abdom en No observ ation record ed. [address] [facility] [address], [place], [address], 12/31/2023 06:09:30 01/20/20 24 01/20/2024 CT, abdom en + pelvi s, w/o contr ast No observ ation record ed. [email or web address] [facility] [address], [place], [address], 01/20/2024 12:45:16 03/21/20 24 02/28/2024 lab* No observ ation record ed. [email or web address] Not Available 2023 12:53:11 Result Notes Documentation Provider Name and Address Organization Details Recorded Time Xr, Shoulder, 2 Or More View : [facility] [address] [place] [address] Patient Name: LEXUS KIM Sex: M : 1950 Dictated By: Mika Patel Attending Physician: MITUL JOSE Ordering Physician: MITUL JOSE Exam Date: 03/30/2023 10:25 AM Exam Name: XR SHOULDER LT 2V+ Admitting Diagnosis(es): Exam: XR SHOULDER LT 2V+ Clinical Indication: . Left-sided shoulder pain Comparison: None. FINDINGS: The 3 views of the shoulder show normal alignment at the glenohumeral joint. There are no fractures or dislocations. The acromioclavicular joint and coracoclavicular spaces are narrowed with osteophyte formation the acromion and coracoid processes appear unremarkable The visualized scapula and clavicle are unremarkable. There are no radiopaque foreign bodies or soft tissue swelling. If there is further concern, followup radiographs or MRI of the shoulder may be performed for complete assessment. IMPRESSION: 1. No fractures or dislocations of the left shoulder. Moderate arthritic changes are noted. Page 1 Mitul Jose MD [address] [facility], [facility] [address], [place], [address], [facility] [employer] 03/30/2023 12:40:14 Problems Name Problem SNOMED Code Status Onset Date Resolution Date Notes Provider Name and Address Organization Details Recorded Time Renewal of prescripti on Active 2021 Not Available [employer] 3 17:23:54 Irritable bowel syndrome 72413840 Active Not Available [employer] 3 17:23:54 Family history of colorectal cancer 5460526728617 Active 2018 Not Available [facility] 3 17:23:54 Insomnia 206722726 Active 2022 Not Available [facility] 3 17:23:55 Family history of neoplasm 868130696 Active Not Available [facility] 3 17:23:55 Pure hyperchole sterolemia 148771952 Active Not Available [facility] 3 17:23:55 Disorder of prostate 07704934 Active 2022 Not Available [facility] 3 17:23:55 Chronic pain syndrome 143345201 Active 2019 Not Available [facility] 3 17:23:55 Acute urinary tract infection 292523256 Active 2021 Not Available [facility] 3 17:23:55 Screening for malignant neoplasm of prostate Active 2021 Not Available [facility] 3 17:23:55 Herniation of nucleus pulposus 36146936 Active Not Available [facility] 3 17:23:55 Kidney stone 19038206 Active 2018 Not Available [facility] 3 17:23:55 Chronic renal failure 72676084 Active 2022 Not Available [facility] 3 17:23:55 Serum creatinine above reference range 382967632 Active 2022 Not Available [facility] 3 17:23:55 Pain of left shoulder joint 0602601988151 9109 Active 2022 Not Available [facility] 3 17:23:54 Obese class I 7240624685087 07 Active 2023 Mitul Jose MD [address], [place], [address] , [email or web address] [facility] [employer] 4 10:54:18 Cholelithi asis without obstructio n 30132206 Active 2023 Mitul Jose MD [address], [place], [address] , [employer] 4 14:23:35 Essential hypertensi on 98669785 Active 2024 Mitul Jose MD [address], [facility] [address], [place], [address] , [facility] [employer] 5 10:56:56 Problem Notes None recorded. Procedures Surgical History Date Name Laterality Status Provider Name and Address Organization Details Recorded Time 3 Medicare Wellness CPT Code, subsequent completed Liza Baker RN [facility] [employer] 03/30/2023 10:41:46 Imaging Results None recorded. Procedure Notes None recorded. Medical Equipment None Reported. Medications Name Sig Start Date Stop Date Status Note LastModified by Organization Details LastModified Time atorvastat in 40 mg tablet Take 1 tablet by mouth once daily 2024 active Not Available Not Available Not Avai [...] Heart rate Body temperature Body weight Systolic And Diastolic Provider Name and Address Organization Details Last Updated DateTime 3 30.7 kg/m2 179.07 cm 96 % 96 % 103 /min 97 [degF] 22366.5 4 g 138/84 mm[Hg] Not Available [employer] 3 14:46:45 Date Recorded Body height Body weight Heart rate Body temperature Oxygen saturation Oxygen saturation in Arterial blood by Pulse oximetry Body mass index (BMI) Systolic And Diastolic Provider Name and Address Organization Details Last Updated DateTime 4 180.34 cm 876786. 51 g 93 /min 97.4 [degF] 95 % 95 % 31 kg/m2 128/88 mm[Hg] ARMANDO Mendieta MA [employer] [facility] [employer] 4 10:33:27 Date Recorded Body height Body mass index (BMI) Body weight Heart rate Body temperature Oxygen saturation Oxygen saturation in Arterial blood by Pulse oximetry Systolic And Diastolic Provider Name and Address Organization Details Last Updated DateTime 5 180.34 cm 32.1 kg/m2 806487. 04 g 108 /min 97 [degF] 98 % 98 % 120/84 mm[Hg] Melissa Núñez [employer] 5 10:50:56 Date Recorded Heart rate Systolic And Diastolic Provider Name and Address Organization Details Last Updated DateTime 02/24/2024 96 /min 130/94 mm[Hg] ARMANDO Mendieta [facility] [employer] [facility] 02/24/2024 11:26:31 Date Recorded Heart rate Systolic And Diastolic Provider Name and Address Organization Details Last Updated DateTime 03/14/2024 86 /min 150/90 mm[Hg] ARMANDO Mendieta [facility] [employer] [facility] 03/14/2024 11:13:40 Date Recorded Body mass index (BMI) Body height Oxygen saturation Oxygen saturation in Arterial blood by Pulse oximetry Heart rate Body temperature Body weight Systolic And Diastolic Provider Name and Address Organization Details Last Updated DateTime 2 30.8 kg/m2 179.07 cm 97 % 97 % 68 /min 95.5 [degF] 90187.1 4 g 120/60 mm[Hg] Not Available [facility] 3 14:46:45 Date Recorded Body height Body mass index (BMI) Body weight Heart rate Body temperature Oxygen saturation Oxygen saturation in Arterial blood by Pulse oximetry Systolic And Diastolic Provider Name and Address Organization Details Last Updated DateTime 3 179.07 cm 31 kg/m2 64758.7 3 g 102 /min 97 [degF] 94 % 94 % 122/78 mm[Hg] Melissa Núñez [facility] [employer] [facility] 3 10:37:07 Social History Question Answer Notes LastModified by Organizat ion Details LastModified Time Tobacco Smoking Status Never Smoker Not Available [facility] 10/07/2022 14:45:23 Do You Have An Advance Directive? No MIGRATION.121348 2349 Information not available 10/07/2022 Are You Blind Or Do You Have Difficulty Seeing? No MIGRATION.284528 4961 Information not available 10/07/2022 Are You Deaf Or Do You Have Serious Difficulty Hearing? No MIGRATION.568076 2013 Information not available 10/07/2022 What Type Of Diet Are You Following? REGULAR MIGRATION.120520 2624 Information not available 10/07/2022 Have There Been Any Changes To Your Family Or Social Situation? No MIGRATION.814730 2470 Information not available 10/07/2022 What Is The Fluoride Status Of Your Home? Unknown MIGRATION.560462 3675 Information not available 10/07/2022 Are There Any Guns Present In Your Home? Yes MIGRATION.337323 4436 Information not available 10/07/2022 Do You Use Insect Repellent Routinely? No MIGRATION.542416 9695 Information not available 10/07/2022 Where Do You Live? [place]House MIGRATION.977721 0496 Information not available 10/07/2022 Guns Present In The Home? Yes [email or web address] Information not available 03/30/2023 Are You Able To Care For Yourself? Yes [email or web address] Information not available 03/30/2023 Are You Blind Or Do Yo Have Difficulty Seeing? No [email or web address] Information not available 03/30/2023 Are You Deaf Or Do You Have Serious Difficulty Hearing? No Information not available 03/30/2023 Live Alone Of With Others? Alone [email or web address] Information not available 03/30/2023 Do You Have A Medical Power Of Correctional Nurse? No MIGRATION.662584 5778 Information not available 10/07/2022 What Was The Date Of Your Most Recent Tobacco Screening? 03/30/2023 [email or web address] Information not available 03/30/2023 Do You Have Any Pets? No MIGRATION.302273 0515 Information not available 10/07/2022 Do You Use Your Seat Belt Or Car Seat Routinely? Yes MIGRATION.507243 9768 Information not available 10/07/2022 Do You Have Smoke And Carbon Monoxide Detectors In Your Home? Yes MIGRATION.730447 5120 Information not available 10/07/2022 Are You Passively Exposed To Smoke? No MIGRATION.225250 7640 Information not available 10/07/2022 Are There Any Smokers In Your House? No MIGRATION.952061 8355 Information not available 10/07/2022 Do You Use Sunscreen Routinely? No MIGRATION.282085 2036 Information not available 10/07/2022 Have You Recently Traveled Abroad? No MIGRATION.238567 2316 Information not available 10/07/2022 Do You Have Difficulty Walking Or Climbing Stairs? No MIGRATION.887952 1938 Information not available 10/07/2022 Sex: Unknown Functional Status Question Answer Note LastModified by Organizat ion Details LastModified Time Do you or have you ever used any other forms of tobacco or nicotine? No MIGRATION.5892862 026 Information not available 10/07/2022 What is your level of alcohol consumption? Occasional MIGRATION.0688768 026 Information not available 10/07/2022 Do you have transportation difficulties? No MIGRATION.0716061 026 Information not available 10/07/2022 Are you able to walk? YESWOREST MIGRATION.1672004 026 Information not available 10/07/2022 Do you have difficulty doing errands alone? No MIGRATION.9452664 026 Information not available 10/07/2022 Are you able to care for yourself? Yes MIGRATION.9460394 026 Information not available 10/07/2022 Do you have difficulty dressing or bathing? No MIGRATION.5275673 026 Information not available 10/07/2022 What is your exercise level? Occasional MIGRATION.1828167 026 Information not available 10/07/2022 Mental Status Question Answer Note LastModified by Organizat ion Details LastModified Time Do you have difficulty concentrating, remembering or making decisions? No MIGRATION.[id number] 6 Information not available 10/07/2022 Family History [...] ARTERY DISEASE (CAD) N ADDICTION CONCERNS N Impotence N ENDOMETRIOSIS N USE OF BLOOD THINNERS N SKIN [...] GLAUCOMA N FOOT PROBLEM N DIVERTICULITIS N SLEEP APNEA N CHICKENPOX N INFECTIOUS DISEASE N PROSTATE N HEART ARRHYTHMIA N INSOMNIA N HIGH CHOLESTEROL / HYPERLIPIDEMIA Y EYE PROBLEMS N HYPERTHYROIDISM N EDEMA N CHRONIC PAIN SYNDROME N HYPOTHYROIDISM N CAROTID BLOCKAGE N CONSTIPATION N BACK / NECK PROBLEMS Y HAVE YOU BEEN HOSPITALIZED OR SEEN IN [facility] ER IN THE PAST YEAR ? N ATHEROSCLEROSIS N BREAST PROBLEMS N DIALYSIS N ECZEMA N OSTEOPOROSIS N ARTHRITIS N NO SIGNIFICANT PAST MEDICAL HISTORY N APPENDICITIS N DIABETES, TYPE N BAD TEETH N ENT N HEARTBURN / REFLUX N AUTISM SPECTRUM DISORDER (ASD) N HEPATITIS / LIVER DISEASE N GOUT N SLEEP DISORDER N ALZHEIMER'S DISEASE N Brain Problems N DEMENTIA N HERPES N SEIZURES/EPILEPSY N HEADACHES/MIGRAINES N VASCULAR DISEASE N PACEMAKER N Blood Disorder N DIZZINESS N HEART DISEASE/HEART PROBLEMS N KIDNEY DISEASE N MULTIPLE SCLEROSIS N CANCER: SPECIFY N CARDIAC ARRHYTHMIA N ATRIAL FIBRILLATION N Gall Stones N [...] SNOMED-CT Code Diagnosis ICD10 Code Diagnosis Note [id number] MD TALIB Mir_[facility] Internal [facility] [place] [address] [place] [address] 03/07/2021 00:00:00 03/07/2021 12:58:15 [id number] MD TALIB [facility] [place] [address] [place] [address] 09/05/2021 00:00:00 09/05/2021 11:36:06 [id number] MD TALIB [facility] [place] [address] [place] [address] [place] [address] 03/24/2022 00:00:00 03/24/2022 10:58:29 [id number] Mitul Jose MD [facility] Internal Med [address] , [place] [address] 09/22/2022 00:00:00 09/22/2022 11:08:59 [id number] Mitul Jose MD [facility] Internal Med [place] , [place] [address] 03/30/2023 10:24:04 03/30/2023 11:13:02 Adult health examination 242779155 Z00.00 Screening for disorder 448752993 Z13.9 Chronic pain syndrome 37 2940672 G89.4 Pure hypercholesterolemia 888738728 E78.00 Chronic renal failure 90 102925 N18.9 Pain of le ft shoulder joint 4778949003 3829395 M25.475 [id number] Mitul Jose MD [facility] Internal [facility] [address] , [place] [address] 09/28/2023 10:22:44 09/28/2023 11:06:02 Pure hypercholesterolemia 128332369 E78.00 Family his tory of colorectal cancer 0013847046 104 Z80.0 Kidney stone 90044638 N2 0.0 Obese class I 0682010177 49693 E66.9 Disorder of prostate 302 68706 N42.9 [id number] Mitul Jose MD [facility] Primary Care [facility] [address] [facility] [address] [facility] [place] [address] 11/23/2024 10:22:34 11/23/2024 11:06:26 Chronic renal failure 28673588 N18.9 Pure hypercholesterolemia 280951853 E78.00 Essential hypertension 99353520 I10 Kidney stone 76484146 N2 0.0 Disorder of prostate 302 93750 N42.9 Health Concerns Section Related Observation LastModified by Organization Detai ls LastModified Time None Recorded Concern Status LastModified by Organization Details LastModified Time None Recorded Advance Directives Directive N: Payers Insurance Date Sequence Insurance Name Policy Number Policy Jolly Covered Member ID Jolly Member ID Guarantor Name 11/23/2024 1 AETNA (MEDICARE REPLACEMENT /ADVANTAGE - PPO) [id number] 2 Lexus Kim [id number] Lexus Kim 11/23/2024 2 [place] Lexus Kim [id number] Lexus Kim Notes Date Note Type Note Provider Name and Address Organization Details Recorded Time 03/30/20 23 text/htm l Patient Name: Lexus KimDate Of Service: Wednesday ( 03.30.2023 ): 1950 [...] doing well. Currently is followed by a structural steel ironworker. Stage: CKD-3a. Albumin Stage: A1. There has [...] or has seen in the past a Concreting Supervisor: No .Pain - Enjoyment of Life - General Activity ScalePain on Average: 4Enjoyment of Live: 4General Activity: 5Enjoyment of Life - General Activity Scale: 5Currently regimen consists of [place] on an intermittent basis. as prescribed with [...] offered to be evaluated and instructed by division officer weapons department on weight loss diet.Medication List Reviewed and Reconciled 03/30/2023Norco 325 MG-7.5 MG (TABLET - ORAL) Every Six Hours As NeededAspirin 81 MG One Daily- Pt Not TakingLipitor 80 MG (TABLET - ORAL) Take One Tablet DailyVaccination and Uiewtrprzpvh9161-70 Covid Puozvk9934-38 InfluenzaSurgical HistoryLeft Hip Resurfacing, TonsillectomyPreventative Testing Confirmed by Our Wjvarks7910/14/2022 ALBUMIN 4.0 G/DL10/14/2022 PSA 0.70 NG/ML03/22/2019 COLONOSCOPY [...] High Cholesterol (1) Mitul Jose MD [address] [facility] [facility] [address], [place], [address], [place] [employer] 03/30/2023 11:06:12 09/28/19 24 text/htm l Patient Name: Lexus PadillaKim Of Service: Wednesday ( 09.28.2023 ): 1950 [...] offered to be evaluated and instructed by division officer weapons department on weight loss diet. Active Medication ListAspirin 81 MG One Daily- Pt Not TakingLipitor 80 MG (TABLET - ORAL) Take One Tablet Daily Vaccination and Bvjcksbbxigc1322-56 Covid Hlussf3938-57 Influenza Surgical Dulmeey6061-65 Lt. Uwjmcygzsq5259-06 Left Hip Odoufwsvlzt4069-29 Tonsillectomy Preventative Testing Confirmed by Our Hjnsxyg0108/19/2023 HAIC 5.708/ ALBUMIN 4.0 G/DL N010/14/2022 PSA 0.70 NG/ML N003/22/2019 COLONOSCOPY (5 YEARS) 03/22/2024 Social HistorySOCIAL HISTORY:Does not smoke cigarettes. Drinking Hx: < 6 beers per week, 2 Cups of coffee per day, 1 Cup of tea per day. 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
== END 2025-02-13 10:38 | disposition home or self-care (01) ==
PROVIDERS: PCP Internal Medicine; Visit Provider Urology
DX: N20.0 Calculus of kidney (principal); Z90.5 Acquired absence of kidney
CPT/HCPCS: 74018

== ENCOUNTER 2025-02-14 09:54 | Outpatient (CLI) | payer MEDICARE, SELFPAY ==
--- OUTSIDE RECORDS SUMMARY | 2025-02-14 10:07 | XMS_ITS | Clinical Summary ---
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 Gender Identity Not on file Sexual Orientation Not on file Obstetrics History Last Filed Vital Signs Vital Sign Reading Time Taken Comments Blood Pressure 158/85 10/07/2024 4:43 PM FITTER'S ASSISTANT Pulse 95 10/07/2024 4:43 PM FITTER'S ASSISTANT Temperature 37.2 C (99 F) 10/07/2024 4:43 PM FITTER'S ASSISTANT Respiratory Rate 19 10/07/2024 4:43 PM FITTER'S ASSISTANT Oxygen Saturation 96% 10/07/2024 4:43 PM FITTER'S ASSISTANT Inhaled Oxygen Concentration - - Weight 103.9 kg (229 lb) 10/07/2024 4:43 PM FITTER'S ASSISTANT Height 180.3 cm (5' 11) 10/07/2024 4:43 PM FITTER'S ASSISTANT Body Mass Index 31.94 10/07/2024 4:43 PM FITTER'S ASSISTANT Plan of Treatment Health Maintenance Due Date [...] 06/03/2018, 06/11/2017 Medical Devices Implanted Type Area Tin Assorter Device Identifier Shelf Expiration Date Model / Serial / Lot [employer] Contour 6fr 26cm Large Inner Lumen Low Profile Bladder [employer] Latex Free 180-223 - [id number] Implanted:Qty: 1 on 03/23/2024 by Karlos Bailey MD at [facility] Right: [employer] 10/24/2026 [id number] / / [id number] Explanted Type Area Tin Assorter Device Identifier Shelf Expiration Date Model / Serial / Lot [employer] Airam Contour 6fr 26cm Large Inner Lumen Low Profile Bladder [employer] T[employer] Latex Free 180-223 - [id number] Implanted:Qty: 1 on 03/03/2024 by Karols Bailey MD at [facility] Explanted:Qty: 1 on 03/23/2024 at [facility] Right: [employer] 09/17/2026 [id number] / / [id number] Insurance AET MEDICARE AETNA MEDICARE Advance Directives For more information, please contact: [phone] * Full Code (Latest Code Status on File) Date Activated Date Inactivated Comments 08/31/2023 6:40 PM 09/01/2023 6:26 PM Care Teams Domestic Maid Relationship Specialty Start Date End Date Yovani Jose MD PCP - General 10/14/18 Karlos Bailey MD Consulting Physician Urology 09/01/23
--- OUTSIDE RECORDS SUMMARY | 2025-02-14 10:07 | XMS_ITS | Clinical Summary ---
Author Organization [facility] Facility Address [address] [address] Care Team Providers Care Embroiderer Hand Name Role Phone Yovani Jose MD Primary Care Provider [phone] Medications ciprofloxacin (CIPRO) 500 MG tablet Take [...] 12:[address] PM CDT [facility] [address] [facility] [address] [place] [phone] Obdulio Burgos DO [address] [place] [address] Health Maintenance Due Date Last Done Comments Pneumococcal Vaccine: 50+ Ye ars (1 of 2 - PCV) 1970 Colorectal Cancer Screening: Annual FOBT 2000 Colorectal Cancer Screening: Colonoscopy 2000 Colorectal Cancer Screening: Sigmoidoscopy 2000 Influenza Vaccine (#1) 2025 07/11/2019 Hepatitis B Vaccine Aged Out No longe r eligible based on patient's age to complete this topic Insurance Aetna MCR Adv PPO ([id number]) Advance Directives Documents on File Type Date Recorded Patient Rackman Expl anation Advance Care Planning 04/28/2023 12:53 PM Care Teams Embroiderer Hand Relationship Specialty Start Date End Date Yovani Jose MD [address] [place] [phone] PCP - General Internal Medicine 01/12/23
--- OUTSIDE RECORDS SUMMARY | 2025-02-14 10:07 | XMS_ITS | Referral Summary ---
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 Gender Identity Not on file Sexual Orientation Not on file Last Filed Vital Signs Vital Sign Reading Time Taken Comments Blood Pressure 158/85 10/07/2024 4:43 PM LIFE SKILLS WORKER Pulse 95 10/07/2024 4:43 PM LIFE SKILLS WORKER Temperature 37.2 C (99 F) 10/07/2024 4:43 PM LIFE SKILLS WORKER Respiratory Rate 19 10/07/2024 4:43 PM LIFE SKILLS WORKER Oxygen Saturation 96% 10/07/2024 4:43 PM LIFE SKILLS WORKER Inhaled Oxygen Concentration - - Weight 103.9 kg (229 lb) 10/07/2024 4:43 PM LIFE SKILLS WORKER Height 180.3 cm (5' 11) 10/07/2024 4:43 PM LIFE SKILLS WORKER Body Mass Index 31.94 10/07/2024 4:43 PM LIFE SKILLS WORKER Plan of Treatment Not on file Medical Devices Implanted Type Area Environmental Epidemiologist Device Identifier Shelf Expiration Date Model / Serial / Lot [employer] Airam Contour 6fr 26cm Large Inner Lumen Low Profile Bladder Ochoa Taper Latex Free 180-223 - [id number] Implanted:Qty: 1 on 03/23/2024 by Karlos Bailey MD at [facility] Right: [employer]am 10/24/2026 [id number] / / [id number] Explanted Type Area Environmental Epidemiologist Device Identifier Shelf Expiration Date Model / Serial / Lot [employer] Airam Contour 6fr 26cm Large Inner Lumen Low Profile Bladder Ochoa Taper Latex Free 180-223 - [id number] Implanted:Qty: 1 on 03/03/2024 by Karlos Bailey MD at [facility] Explanted:Qty: 1 on 03/23/2024 at [facility] Right: [employer] 09/17/2026 [id number] / / [id number] Insurance Member Subscriber Plan / Payer (Ef fective 2021-Present) Name:EloyyuriyPhu Relation to Subscriber:Self Name:Varghese Poolejuwan Albarran Payer ID:1 (NAIC) Type:AETNA MEDICARE Address: [facility] [id number] [place] [phone] [facility] MEDICARE Member Subscriber Plan / Payer ( fective 2021-Present) Name:Phu Poole Relation to Subscriber:Self Name:Varghese Poolejuwan Albarran Payer ID:1 (NAIC) Type:AETNA MEDICARE Address: [facility] [id number] [place] [phone] Advance Directives For more information, please contact: [phone] * Full Code (Latest Code Status on File) Date Activated Date Inactivated Comments 08/31/2023 6:40 PM 09/01/2023 6:26 PM Care Teams Shoe Clerk Relationship Specialty Start Date End Date Yovani Jose MD PCP - General 10/14/18 Karlos Bailey MD Consulting Physician Urology 09/01/23
[2025-02-14 10:45] LABS: Albumin Level 4.4 g/dL (3.5-5.1); Anion Gap 10 mmol/L (4-12); Blood Urea Nitrogen 31 mg/dL (9-20); Calcium 9.6 mg/dL (8.4-10.2); Carbon Dioxide 24 mmol/L (22-30); Chloride 106 mmol/L (98-107); Estimated Glomerular Filt Rate 30; Glucose 105 mg/dL (65-110); Magnesium 2.0 mg/dL (1.6-2.3); Potassium 4.4 mmol/L (3.4-5.0); Sodium 140 mmol/L (137-145)
[2025-02-14 12:12] LABS: Total Protein Urine Random 6 mg/dL; Ur Ttl Prot Creatinine Ratio 0.05 mg/mg (0-0.20)
[2025-02-14 12:13] LABS: MALB Creatinine Ratio 8.0 mg/g (0-30)
[2025-02-14 16:30] LABS: Hemoglobin A1C 5.8 % (<5.7)
[2025-02-14 17:00] LABS: Add Urine Microscopic? NO; Appearance Urine Clear (Clear); Glucose Urine UA Negative (Negative); Leukocyte Esterase Ur Negative LEU/UL (Negative); Nitrate Urine Negative (Negative); Specific Grav Ur 1.015 (1.001-1.035)
== END 2025-02-14 09:55 | disposition home or self-care (01) ==
PROVIDERS: PCP Internal Medicine; Visit Provider Internal Medicine Nephrology
DX: I12.9 Hypertensive chronic kidney disease with stage 1 through stage 4 chronic kidney disease, or unspecified chronic kidney disease (principal); N18.30 Chronic kidney disease, stage 3 unspecified; N20.0 Calculus of kidney; N40.0 Benign prostatic hyperplasia without lower urinary tract symptoms; E78.00 Pure hypercholesterolemia, unspecified; Z13.1 Encounter for screening for diabetes mellitus
CPT/HCPCS: 36415; 80069; 81003; 82043; 82306; 82570; 82610; 83036; 83735; 84156

== ENCOUNTER 2025-03-13 09:12 | Outpatient (CLI) | payer MEDICARE, SELFPAY ==
--- OUTSIDE RECORDS SUMMARY | 2025-03-13 09:31 | XMS_ITS | Clinical Summary ---
Author Organization [facility] Facility Address [address] [address] Care Team Providers Care Corporate Lawyer Name Role Phone Yovani Jose MD Primary Care Provider [phone] Medications ciprofloxacin (CIPRO) 500 MG tablet Take [...] Encounters Date Type Department Care Team Description 02/27/2025 12:45 PM CDT Office Visit [facility] [employer] [facility], [facility] [address] [phone] Obdulio Burgos DO Stage 3 chronic kidney disease, not otherwise specified (HCC) (Primary Dx); Nephrolithiasis; Benign prostatic hyperplasia; Hypertensive chronic kidney disease; Diabetes mellitus screening; Pure hypercholesterolemi a, not otherwise specified 02/15/2025 Documentation Only [facility] [employer] [facility], [address] [address] Obdulio Burgos DO 02/15/2025 Documentation Only [facility] [employer] [facility], [address] [address] Obdulio Burgos DO 02/15/2025 Documentation Only [address] [address] Obdulio Burgos DO 02/14/2025 Documentation Only [address] [address] Obdulio Burgos DO 02/14/2025 Documentation Only [address] [address] Obdulio Burgos DO from Last 3 Months Social History Tobacco Use Types Packs/Day Years Used Date Smoking Tobacco: Never Assessed Sex and Gender Information Value Date Recorded Sex Assigned at Not on file Legal Sex Male 4:20 PM EDT Gender Identity Not on file Sexual Orientation Not on file Last Filed Vital Signs Vital Sign Reading Time Taken Comments Blood Pressure 150/78 02/27/2025 12:39 PM CDT Pulse 86 02/27/2025 12:39 PM CDT Temperature 36.1 C (97 F) 05/02/2024 2:39 PM CDT Respiratory Rate 20 02/27/2025 12:39 PM CDT Oxygen Saturation 97% 02/27/2025 12:39 PM CDT Inhaled Oxygen Concentration - - Weight 102 kg (224 lb) 02/27/2025 12:39 PM CDT Height 180.3 cm (5' 11) 02/27/2025 12:39 PM CDT Body Mass Index 31.24 02/27/2025 12:39 PM CDT Plan of Treatment Upcoming Encounters Date Type Department Care Team (Late st Contact Info) Description 09/04/2025 12:30 PM TECHNICAL SERVICES MANAGER Office Visit [facility] [address] [facility] [address] [place] [phone] Obdulio Burgos DO [address] [place] [phone] Health Maintenance Due Date Last Done [...] Comments LITHOLINK KIDNEY STONE URINE PANEL Routine 02/14/2025 9:00 AM CDT from Last 3 Months Results * (ABNORMAL) Litholink Kidney Stone Urine Panel, 24 Hour (02/14/2025 9:00 AM CDT) Cystine, Ur CANCELED [facility] Comment: Test not performed. Previous test results on file. Result canceled by the ancillary. Urine Volume (Preservative) 1,610 500 - 4,000 mL/24 hr [facility] Calcium Oxalate 1.92(L) 6.00 - 10.00 [facility] Calcium, 24H Urine 47 <250 mg/24 hr [facility] Oxalate, 24H Ur 21 20 - 40 mg/24 hr [facility] Citrate, 24H Ur 167(L) >450 mg/24 hr [facility] Calcium Phosphate Saturation 0.15(L) 0.50 - 2.00 [facility] pH, 24 Hr Urine 5.840 5.800 - 6.200 [facility] Uric Acid Saturation 0.54 <1.00 [facility] Uric Acid, 24H Ur 315 <800 mg/24 hr [facility] Sodium, 24H Ur 97 50 - 150 mmol/24 hr [facility] Potassium, 24H Ur 35 20 - 100 mmol/24 hr [facility] Magnesium, 24H Ur 63 30 - 120 mg/24 hr [facility] Phosphorus 24 Hour Urine 512(L) 600 - 1,200 mg/24 hr [facility] Ammonia, 24 hr Urine 15 15 - 60 mmol/24 hr [facility] Chloride, 24H Ur 90 70 - 250 mmol/24 hr [facility] Sulfate, 24H Ur 24 20 - 80 meq/24 hr [facility] Urea Nitrogen, 24H Ur 6.55 6.00 - 14.00 g/24 hr [facility] Protein Catabolic Rate, (14) 0.6(L) 0.8 - 1.4 g/kg/24 hr [facility] Creatinine in 24 hour Urine 1,158 Not Applic. mg/24 hr [facility] Comment: Note the excessive variation in creatinine excretion, suggesting a discrepancy in the collection process. The urine creatinine result was verified by repeat analysis. Creatinine/KG Body Weight 11.1(L) 11.9 - 24.4 mg/24 hr/kg [facility] Calcium/KG Body Weight 0.4 <4.0 mg/24 hr/kg [facility] Calcium/Creat.Ra charline 40 34 - 196 mg/g creat [facility] Comment Note [facility] PDF . [facility] 02/14/2025 9:00 AM CDT 02/16/2025 11:00 PM CDT us Obdulio Burgos DO LAB URINE ORDERABLES Edited Result - Final [facility] [address] [place] [phone] from Last 3 Months Insurance [employer] MCR Adv PPO ([id number]) Advance Directives Documents on File Type Date Recorded Patient Twisting Frame Changer Expl anation Advance Care Planning 04/28/2023 12:53 PM Care Teams Corporate Lawyer Relationship Specialty Start Date End Date Yovani Jose MD [address] [facility] [address] [place] [address] PCP - General Internal Medicine 01/12/23
--- OUTSIDE RECORDS SUMMARY | 2025-03-13 09:31 | XMS_ITS ---
Author Organization [facility] Address [address] [place] [address] Care Team Providers Care Rail Assembler Name Role Phone Yovani Jose MD Primary Care Provider Karlos Bailey MD Unavailable [phone] Active Problems Problem Noted Date Diagnosed Date Malignant neoplasm of urinary bladder 02/22/2025 Calculus of ureter 02/18/2024 Calculus of kidney 02/03/2024 Atrophic kidney, acquired 08/31/2023 Atrophic kidney 08/31/2023 Hypertension 08/19/2023 Hyperlipidemia 08/19/2023 Atrophy of left kidney 08/06/2023 Surgical follow-up care 02/02/2014 Current Treatment and Therapy Plans No current plan information found. Past Treatment and Therapy Plans No past plan information found. Lifetime Dose Tracking * Chemical Lifetime Dose Automatic Entry Manual Entr y Fluoro Time 2.398 minutes 2.398 minutes 0 minutes Air kerma at the reference point (Ka,r) 40.27 mGy 4 0.27 mGy 0 mGy
--- OUTSIDE RECORDS SUMMARY | 2025-03-13 09:31 | XMS_ITS | Clinical Summary ---
Author Organization [facility] Address [address] [place] [address] Care Team Providers Care Education General Manager Name Role Phone Yovani Jose MD Primary Care Provider Karlos Bailey MD Unavailable [phone] Allergies No known active allergies Medications atorvastatin (LIPITOR) 40 mg tablet Take 1 tablet (40 mg total) by mouth daily Active aspirin 81 mg enteric coated tablet Take 1 tablet (81 mg total) by mouth daily 4 Active tadalafiL (CIALIS) 20 mg tablet Take 1 tablet (20 mg total) by mouth daily as needed Active apple cider vinegar 300 mg tablet Take by mouth Active chlorthalidone (HYGROTON) 25 mg tablet Take 1 tablet (25 mg total) by mouth daily Active olmesartan (BENICAR) 5 mg tablet Take 2 tablets (10 mg total) by mouth nightly 5 Active cholecalciferol (VITAMIN D-3) 3,000 unit tablet 03/07/20 Discontinu ed(Therapy completed) tamsulosin (FLOMAX) 0.4 mg extended release capsule Take 1 capsule (0.4 mg total) by mouth nightly 30 capsule 4 03/07/20 Discontinu ed(Therapy completed) Active Problems Problem Noted Date Diagnosed Date Malignant neoplasm of urinary bladder 02/22/2025 Calculus of ureter 02/18/2024 Calculus of kidney 02/03/2024 Atrophic kidney, acquired 08/31/2023 Atrophic kidney 08/31/2023 Hypertension 08/19/2023 Hyperlipidemia 08/19/2023 Atrophy of left kidney 08/06/2023 Surgical follow-up care 02/02/2014 Encounters Date Type Department Care Team Description 03/11/2025 2:20 PM CDT - 03/11/2025 11:59 PM CDT Hospital Encounter [facility] Imaging [address] [address] Bladder tumor Discharge Disposition: Discharge to home or self care 02/21/2025 Orders Only [facility] Operating Room [address] [place] [address] Karlos Bailey MD Bladder tumor (Primary Dx) from Last 3 Months Surgical [...] e alcohol) rare AUDIT-C Answer Date Recorded Q1: How often do you have a drink containing alcohol? Never 03/07/2025 Q2: How many drinks containi ng alcohol do you have on a typical day when you are drinking? Patient does not drink Q3: How often do you have si x or more drinks on one occasion? Never 03/07/2025 Personal Safety Answer Date Recorded Have you ever been in or are you currently in a harmful physical or emotional relationship or is someone making you feel afraid or unsafe? 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 Gender Identity Not on file Sexual Orientation Not on file Obstetrics History Last Filed Vital Signs Vital Sign Reading Time Taken Comments Blood Pressure 158/85 10/07/2024 4:43 PM MEDICAID COLLECTION SPECIALIST Pulse 95 10/07/2024 4:43 PM MEDICAID COLLECTION SPECIALIST Temperature 37.2 C (99 F) 10/07/2024 4:43 PM MEDICAID COLLECTION SPECIALIST Respiratory Rate 19 10/07/2024 4:43 PM MEDICAID COLLECTION SPECIALIST Oxygen Saturation 96% 10/07/2024 4:43 PM MEDICAID COLLECTION SPECIALIST Inhaled Oxygen Concentration - - Weight 103.9 kg (229 lb) 10/07/2024 4:43 PM MEDICAID COLLECTION SPECIALIST Height 180.3 cm (5' 11) 10/07/2024 4:43 PM MEDICAID COLLECTION SPECIALIST Body Mass Index 31.94 10/07/2024 4:43 PM MEDICAID COLLECTION SPECIALIST Plan of Treatment Upcoming Encounters Date Type Department Care Team (Latest Contact Info) Description 03/15/2025 12:35 PM CDT Hospital Encounter [facility] Operating Room [address] [place] [address] [place] [address] [place] [address] 03/15/2025 12:35 PM CDT - 03/15/2025 2:05 PM CDT Surgery [facility] Operating Room [address] [place] [address] [place] [address] [place] [address] Cystoscopy and bladder biopsy, possible transurethral resection of bladder tumor with gemcitabine administration Scheduled Procedures Name Priority Associated Diagnoses Date/Ti me BIOPSY BLADDER - CYSTOSCOPY Malignant neoplasm of urinary bladder, unspecified site (HCC) 03/15/2025 12:35 PM CDT CYSTOSCOPY - TRANSURETHRAL RESECTION BLADDER TUMOR Malignant neoplasm of urinary bladder, unspecified site (HCC) 03/15/2025 12:35 PM CDT Health Maintenance Due Date Last Done Comments Colon Cancer Screening-Colonoscopy 1950 Depression Screening 1950 Hepatitis C Screening 1950 DTaP/Tdap/Td Vaccine (1 - Tdap) 1962 Hepatitis B Screening 1969 Pneumococcal vaccine 65+ (1 of 1 - PCV) 2001 Zoster Vaccine (1 of 2) 2001 Well Visit 65+ 2016 Covid-19 Vaccine ( season) 04/09/202406/2021, 10/22/2020 Fall Risk Assessment 03/15/2025 03/15/2024, 02/03/2024, 09/01/2023 Influenza Vaccine (#1) 2025 9, 06/03/2018, 06/11/2017 Medical Devices Implanted Type Area Hasher Machine Operator Device Identifier Shelf Expiration Date Model / Serial / Lot [employer] Airam Contour 6fr 26cm Large Inner Lumen Low Profile Bladder Ochoa Taper Latex Free 180-223 - [id number] Implanted:Qty: 1 on 03/23/2024 by Karlos Bailey MD at [facility] Right: Ureter [employer] Airam 10/24/2026 [id number] / / [id number] Explanted Type Area Hasher Machine Operator Device Identifier Shelf Expiration Date Model / Serial / Lot [employer] Airam Contour 6fr 26cm Large Inner Lumen Low Profile Bladder Ochoa Taper Latex Free 180-223 - [id number] Implanted:Qty: 1 on 03/03/2024 by Karlos Bailey MD at [facility] Explanted:Qty: 1 on 03/23/2024 at [facility] Right: Ureter [employer] Airam 09/17/2026 [id number] / / [id number] Procedures Procedure Name Priority Date/Time Associated Diagnosis Comments MRI UROGRAM Schedule Routine, Read Routine (OP Routine) 03/11/2025 4:02 PM CDT Bladder tumor from Last 3 Months Results * MRI Urogram (03/11/2025 4:02 PM CDT) Anatomical Region Laterality Modality Pelvis N/A Magnetic Resonan ce 03/12/2025 12:4 7 PM CDT Impressions 03/12/2025 4:29 PM CDT 1. Small area of focal wall thickening at the posterior aspect of a urinary bladder diverticulum may represent debris or a tiny nodule. Recommend correlation with cystoscopy. 2. Choledocholithiasis with minimal dilation of the common bile duct. The results were discussed with Dr. Yovani Jose by Dr. Petersen on 03/12/2025 12:43 PM. Dictated by: Sammy Petersen MD PHD The radiology attending physician has personally reviewed this study, and had reviewed and/or edited this written report and agrees with it. Electronically signed by: Tanya Hernandez M.D. Narrative 03/12/2025 4:29 PM CDT EXAMINATION: 1. MAGNETIC RESONANCE IMAGING OF THE ABDOMEN WITHOUT AND WITH CONTRAST 2. MAGNETIC RESONANCE IMAGING OF THE PELVIS WITHOUT AND WITH CONTRAST HISTORY: Hematuria. 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 TECHNIQUE: Magnetic resonance imaging of the abdomen and pelvis was performed prior to and following the uneventful administration of intravenous contrast. 10 mg of Lasix and 750 ml of normal saline was administered IV during the examination. Thick slab MIP images of the renal collecting systems were performed. Protocol: MR Urogram Contrast: Dotarem (gadoterate) 20 mL COMPARISON: CT 06/12/2023 FINDINGS: Right kidney: There are scattered simple cysts in the right kidney. No suspicious renal or urothelial lesion. Left kidney: Changes of left radical nephrectomy. No suspicious nodularity, diffusion restriction, or enhancement in the resection bed. Bladder: There is a bladder diverticulum at the right aspect of the urinary bladder with small area of focal wall thickening measuring 4 mm at its posterior aspect, series 48 image 50. No suspicious diffusion restriction or enhancement, although evaluation is limited by artifact from the patient's left hip arthroplasty. Non-urographic Findings: Liver/Biliary: No hepatic surface nodularity. No fat or iron deposition. No suspicious focal hepatic lesion. There is a 5 mm stone in the common bile duct, which measures 7 mm in diameter. Gallbladder: Decompressed gallbladder with multiple stones. No cholecystitis. Pancreas: Normal Spleen: Normal Adrenals: Normal Other Findings: The imaged lung bases are clear. The bowel is normal in caliber. Left hip arthroplasty. No suspicious osseous lesion. Procedure Note Tanya Hernandez MD - 03/12/2025 EXAMINATION: 1. MAGNETIC RESONANCE IMAGING OF THE ABDOMEN WITHOUT AND WITH CONTRAST 2. MAGNETIC RESONANCE IMAGING OF THE PELVIS WITHOUT AND WITH CONTRAST HISTORY: Hematuria. 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 TECHNIQUE: Magnetic resonance imaging of the abdomen and pelvis was performed prior to and following the uneventful administration of intravenous contrast. 10 mg of Lasix and 750 ml of normal saline was administered IV during the examination. Thick slab MIP images of the renal collecting systems were performed. Protocol: MR Urogram Contrast: Dotarem (gadoterate) 20 mL COMPARISON: CT 06/12/2023 FINDINGS: Right kidney: There are scattered simple cysts in the right kidney. No suspicious renal or urothelial lesion. Left kidney: Changes of left radical nephrectomy. No suspicious nodularity, diffusion restriction, or enhancement in the resection bed. Bladder: There is a bladder diverticulum at the right aspect of the urinary bladder with small area of focal wall thickening measuring 4 mm at its posterior aspect, series 48 image 50. No suspicious diffusion restriction or enhancement, although evaluation is limited by artifact from the patient's left hip arthroplasty. Non-urographic Findings: Liver/Biliary: No hepatic surface nodularity. No fat or iron deposition. No suspicious focal hepatic lesion. There is a 5 mm stone in the common bile duct, which measures 7 mm in diameter. Gallbladder: Decompressed gallbladder with multiple stones. No cholecystitis. Pancreas: Normal Spleen: Normal Adrenals: Normal Other Findings: The imaged lung bases are clear. The bowel is normal in caliber. Left hip arthroplasty. No suspicious osseous lesion. IMPRESSION: 1. Small area of focal wall thickening at the posterior aspect of a urinary bladder diverticulum may represent debris or a tiny nodule. Recommend correlation with cystoscopy. 2. Choledocholithiasis with minimal dilation of the common bile duct. The results were discussed with Dr. Yovani Jose by Dr. Petersen on 03/12/2025 12:43 PM. Dictated by: Sammy Petersen MD PHD The radiology attending physician has personally reviewed this study, and had reviewed and/or edited this written report and agrees with it. Electronically signed by: Tanya Hernandez M.D. [facility] Devan Bailey MD [facility] MRI PROCEDURES F inal Result from Last 3 Months Insurance AET MEDICARE T MEDICARE Advance Directives For more information, please contact: [phone] * Full Code (Latest Code Status on File) Date Activated Date Inactivated Comments 08/31/2023 6:40 PM 09/01/2023 6:26 PM Care Teams Education General Manager Relationship Specialty Start Date End Date Yovani Jose MD PCP - General 10/14/18 Karlos Bailey MD Consulting Physician Urology 09/01/23
--- OUTSIDE RECORDS SUMMARY | 2025-03-13 09:31 | XMS_ITS | Encounter Summary ---
Author Organization [facility] Healthcare Address [address] [place] [address] Care Team Providers Care Escrow Representative Name Role Phone Yovani Jose MD Primary Care Provider Karlos Bailey MD Unavailable [phone] Reason for Referral * Medication Authorization (Routine) - Pending Review Specialty Diagnoses / Procedures Referred By Linus perez [place] [address] [place] [address] Phone: tel: fax: Referral ID Status Reason Start Date Expiration Date V isits Requested Visits Authorized [id number] Pending Review 03/11/2025 04/10/2026 1 1 * MRI/CAT/PET Scan (Routine) - Closed Specialty Diagnoses / Procedures Referred By Linus perez Referred To Contact Radiology Diagnoses Bladder tumor Procedures [place] [address] [place] [address] Phone: tel: fax: [facility] [address] [place] [address] Referral ID Status Reason Start Date Expiration Date Visits Re quested Visits Authorized [id number] Closed 02/21/2025 08/20/2025 1 1 Reason for Visit * MRI/CAT/PET Scan (Routine) - Closed Specialty Diagnoses / Procedures Referred By Linus t Referred To Contact Radiology Diagnoses Bladder tumor Procedures [place] [address] [place] [address] Phone: tel: fax: [facility] [address] [place] [address] Referral ID Status Reason Start Date Expiration Date Visits Re quested Visits Authorized [id number] Closed 02/21/2025 08/20/2025 1 1 Encounter Details Date Type Department Care Team (Latest Contact Info) Description 03/11/2025 2:20 PM CDT - 03/11/2025 11:59 PM CDT Hospital Encounter [facility] Imaging [address] [address] Bladder tumor Discharge Disposition: Discharge to home or self care Social History Tobacco Use Types Packs/Day Years Used Date Smoking Tobacco: Never Smokeless Tobacco: Never Alcohol Use Standard Drinks/Week Comments Not Currently [...] on file 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 Gender Identity Not on file Sexual Orientation Not on file documented as of this encounter Medications at Time of Discharge apple cider vinegar 300 mg tablet Take by mouth aspirin 81 mg enteric coated tablet Take 1 tablet (81 mg total) by mouth daily 11/09/2013 atorvastatin (LIPITOR) 40 mg tablet Take 1 tablet (40 mg total) by mouth daily chlorthalidone (HYGROTON) 25 mg tablet Take 1 tablet (25 mg total) by mouth daily olmesartan (BENICAR) 5 mg tablet Take 2 tablets (10 mg total) by mouth nightly 10/31/2024 tadalafiL (CIALIS) 20 mg tablet Take 1 tablet (20 mg total) by mouth daily as needed documented as of this encounter Discharge Disposition Disposition Code Departure Means Destination Discharge to home or self care documented in this encounter Plan of Treatment Upcoming Encounters Date Type Department Care Team (Latest Contact Info) Description 03/15/2025 12:35 PM CDT Hospital Encounter [facility] Operating Room [address] [place] [address] [place] [address] [place] [address] 03/15/2025 12:35 PM CDT - 03/15/2025 2:05 PM CDT Surgery [facility] Operating Room [address] [place] [address] [place] [address] [place] [address] Cystoscopy and bladder biopsy, possible transurethral resection of bladder tumor with gemcitabine administration Scheduled Procedures Name Priority Associated Diagnoses Date/Ti me BIOPSY BLADDER - CYSTOSCOPY Malignant neoplasm of urinary bladder, unspecified site (HCC) 03/15/2025 12:35 PM CDT CYSTOSCOPY - TRANSURETHRAL RESECTION BLADDER TUMOR Malignant neoplasm of urinary bladder, unspecified site (HCC) 03/15/2025 12:35 PM CDT documented as of this encounter Procedures Procedure Name Priority Date/Time Associated Diagnosis Comments MRI UROGRAM Schedule Routine, Read Routine (OP Routine) 03/11/2025 4:02 PM CDT Bladder tumor documented in this encounter Results * MRI Urogram (03/11/2025 4:02 PM [...] it. Electronically signed by: Tanya Hernandez M.D. Karlos Bailey MD IMG MRI PROCEDURES F inal Result documented in this encounter Visit Diagnoses Diagnosis Malignant neoplasm of urinary bladder (HCC)- Primary Malignant neoplasm of bladder, part unspecified Bladder tumor Neoplasm of unspecified nature of bladder Malignant neoplasm of urinary bladder, unspecified site (HCC) documented in this encounter Administered Medications Inactive Administered Medications - up to 3 most recent administrations Medication Order MAR Action Action Date Dose Rate Site furosemide (LASIX) 10 mg/mL injection 20 mg 20 mg, intravenous, Once, On 03/11/25 at 1600, For 1 dose, For IV push: administer doses < 160 mg at a rate of 20 -40 mg/min. Doses >/= 160 mg should be administered no faster than 4 mg/min. Room temperature only Given 03/11/2025 3:26 PM CDT 10 mg Left Antecubital gadoterate meglumine injection 20 mL 20 mL, intravenous, Once in imaging, contrast, Starting on 03/11/25 at 1523, For 1 dose Contrast Given 03/11/2025 3:25 PM CDT 20 mL Left Antecubital sodium chloride 0.9% flush 125 mL 125 mL, intravenous, As needed, line care, Starting on 03/11/25 at 1523 Given 03/11/2025 3:25 PM CDT 125 mL Left Antecubital documented in this encounter Care Teams Escrow Representative Relationship Specialty Start Date End Date Yovani Jose MD PCP - General 10/14/18 Karlos Bailey MD Consulting Physician Urology 09/01/23 documented as of this encounter
--- OUTSIDE RECORDS SUMMARY | 2025-03-13 09:31 | XMS_ITS | Referral Summary ---
Author Organization [facility] Address [address] [place] [address] Care Team Providers Care Portrait Photographer Name Role Phone Yovani Jose MD Primary Care Provider Karlos Bailey MD Unavailable [phone]- [phone] Encounters Date Type Department Care Team Description 03/11/2025 2:20 PM CDT - 03/11/2025 11:59 PM CDT Hospital Encounter [facility] [id number] [place] [address] Bladder tumor Discharge Disposition: Discharge to home or self care 02/21/2025 Orders Only [facility] Operating Room [address] [place] [address] Karlos Bailey MD Bladder tumor (Primary Dx) from Last 3 Months Allergies [...] cholecalciferol (VITAMIN D-3) 3,000 unit tablet 03/07/20 25 Discontinu ed(Therapy completed) tamsulosin (FLOMAX) 0.4 mg extended release capsule Take 1 capsule (0.4 mg total) by mouth nightly 30 capsule 03/07/20 25 Discontinu ed(Therapy completed) Active Problems Problem Noted [...] on file Legal Sex Male 2:19 AM QUAL[facility] Gender Identity Not on file Sexual Orientation Not on file Last Filed Vital Signs Vital Sign Reading Time Taken Comments Blood Pressure 158/85 10/07/2024 4:43 PM [facility] Pulse 95 10/07/2024 4:43 PM [facility] Temperature 37.2 C (99 F) 10/07/2024 4:43 PM [facility] Respiratory Rate 19 10/07/2024 4:43 PM [facility] Oxygen Saturation 96% 10/07/2024 4:43 PM [facility] Inhaled Oxygen Concentration - - Weight 103.9 kg (229 lb) 10/07/2024 4:43 PM [facility] Height 180.3 cm (5' 11) 10/07/2024 4:43 PM [facility] Body Mass Index 31.94 10/07/2024 4:43 PM [facility] Plan of Treatment Upcoming Encounters Date Type Department Care Team (Latest Contact Info) Description 03/15/2025 12:35 PM CDT Hospital Encounter [facility] Operating Room [address] [place] [address] [place] [id number] [place] [address] 03/15/2025 12:35 PM CDT - 03/15/2025 2:05 PM CDT Surgery [facility] Operating Room [address] [place] [address] [place] [address] [place] [address] Cystoscopy and bladder biopsy, possible transurethral resection of bladder tumor with gemcitabine administration Scheduled Procedures Name Priority Associated Diagnoses Date/Ti me BIOPSY BLADDER - CYSTOSCOPY Malignant neoplasm of urinary bladder, unspecified site (HCC) 03/15/2025 12:35 PM CDT CYSTOSCOPY - TRANSURETHRAL RESECTION BLADDER TUMOR Malignant neoplasm of urinary bladder, unspecified site (HCC) 03/15/2025 12:35 PM CDT Medical Devices Implanted Type Area Gravel Weigher Device Identifier Shelf Expiration Date Model / Serial / Lot [employer] Airam Contour 6fr 26cm Large Inner Lumen Low Profile Bladder [employer]x Free 180-223 - [id number] Implanted:Qty: 1 on 03/23/2024 by Karlos Bailey MD at [facility] Right: Ureter [employer] Airam 10/24/2026 [id number] / / [id number] Explanted Type Area Gravel Weigher Device Identifier Shelf Expiration Date Model / Serial / Lot [employer] Airam Contour 6fr 26cm Large Inner Lumen Low Profile Bladder [employer] T[employer] Latex Free 180-223 - [id number] Implanted:Qty: 1 on 03/03/2024 by Karlos Bailey MD at [facility] Explanted:Qty: 1 on 03/23/2024 at [facility] Right: Ureter [employer] Airam 09/17/2026 [id number] / / [id number] Procedures Procedure Name Priority Date/Time Associated Diagnosis [...] MD IMG MRI PROCEDURES F inal Result from Last 3 Months Insurance [facility] MEDICARE [employer] MEDICARE Advance Directives For more information, please contact: [phone] * Full Code (Latest Code Status on File) Date Activated Date Inactivated Comments 08/31/2023 6:40 PM 09/01/2023 6:26 PM Care Teams Portrait Photographer Relationship Specialty Start Date End Date Yovani Jose MD PCP - General 10/14/18 Karlos Bailey MD Consulting Physician Urology 09/01/23
[2025-03-13 09:40] LABS: Hematocrit 40.6 % (42.0-52.0); Hemoglobin 13.3 g/dL (14.0-18.0); Immature Granulocyte Percent A 0.5 % (0-0.5); Lymphocytes Absolute Auto 1.41 K/mm3 (0.9-3.2); Mean Corpuscular HGB Conc 32.8 g/dl (32-36); Mean Corpuscular Hemoglobin 30.2 pg (26-34); Mean Corpuscular Volume 92.3 fl (80-100); Nucleated Red Blood Cells Absolute Auto 0.000 K/mm3 (0.0-0.012); Nucleated Red Blood Cells Perc 0.0 % (0.0-0.2); Platelet Count Result 243 k/mm3 (150-375); Red Blood Count 4.40 M/mm3 (4.6-6.20); White Blood Count 6.5 K/mm3 (4.5-10.0)
[2025-03-13 10:03] LABS: Alanine Aminotransferase 24 U/L (6-50); Albumin Level 4.0 g/dL (3.5-5.1); Alkaline Phosphatase 78 U/L (38-126); Anion Gap 8 mmol/L (4-12); Aspartate Amino Transferase 25 U/L (17-59); Bilirubin,Total 0.5 mg/dL (0.2-1.3); Blood Urea Nitrogen 27 mg/dL (9-20); Calcium 9.4 mg/dL (8.4-10.2); Carbon Dioxide 24 mmol/L (22-30); Chloride 108 mmol/L (98-107); Estimated Glomerular Filt Rate 34; Glucose 99 mg/dL (65-110); Potassium 4.4 mmol/L (3.4-5.0); Sodium 140 mmol/L (137-145); Total Protein 7.4 g/dL (6.3-8.2)
== END 2025-03-13 09:13 | disposition home or self-care (01) ==
PROVIDERS: PCP Internal Medicine; Visit Provider Internal Medicine
DX: R10.9 Unspecified abdominal pain (principal)
CPT/HCPCS: 36415; 80053; 85025

== ENCOUNTER 2025-06-06 08:34 | Outpatient (CLI) | payer MEDICARE, SELFPAY ==
--- OUTSIDE RECORDS SUMMARY | 2025-06-06 09:00 | XMS_ITS ---
Author Organization [facility] Address [address] [place] [id number] Care Team Providers Care New Car Driver Name Role Phone Yovani Jose MD Primary Care Provider Karlos Bailey MD Unavailable [phone]- [phone] Active Problems Problem Noted Date Diagnosed Date History of bladder surgery 04/20/2025 History of bladder cancer 04/20/2025 Malignant neoplasm of urinary bladder 02/22/2025 Calculus [...] Automatic Entry Manual Entr y Fluoro Time 4.098 minutes 4.098 minutes 0 minutes Air kerma at the reference point (Ka,r) 158.97 mGy 1 58.97 mGy 0 mGy
--- OUTSIDE RECORDS SUMMARY | 2025-06-06 09:00 | XMS_ITS | Clinical Summary ---
Author Organization [facility] Address [address] [place] [address] Care Team Providers Care Warp Picker Name Role Phone Yovani Jose MD Primary Care Provider Karlos Bailey MD Unavailable [phone]- [phone] Allergies No known active allergies Medications atorvastatin (LIPITOR) 40 mg tablet Take 1 tablet (40 mg total) by mouth every morning Active aspirin 81 mg enteric coated tablet Take 1 tablet (81 mg total) by mouth every morning 11/09/2013 Active apple cider vinegar 300 mg tablet Take 1 tablet/capsu le by mouth every morning Active chlorthalidone (HYGROTON) 25 mg tablet Take 1 tablet (25 mg total) by mouth every morning Active olmesartan (BENICAR) 5 mg tablet Take 2 tablets (10 mg total) by mouth nightly 10/31/2024 Active polyethylene glycol (MIRALAX) 17 gram/dose bulk powder Take 17 g by mouth daily for 14 days 238 g 04/20/2025 Active Active Problems Problem Noted Date Diagnosed Date History of bladder surgery 04/20/2025 History of bladder cancer 04/20/2025 Malignant neoplasm of urinary bladder 02/22/2025 Calculus of ureter 02/18/2024 Calculus of kidney 02/03/2024 Atrophic kidney, acquired 08/31/2023 Atrophic kidney 08/31/2023 Hypertension 08/19/2023 Hyperlipidemia 08/19/2023 Atrophy of left kidney 08/06/2023 Surgical follow-up care 02/02/2014 Encounters Date Type Department Care Team Description 05/11/2025 8:56 AM CDT - 05/11/2025 11:59 PM CDT Hospital Encounter [facility] [address] [place] [address] 1, Amh Rad Rn Rad, Ghanshyam Fluoro Malignant neoplasm of urinary bladder, unspecified site (HCC) Discharge Disposition: Discharge to home or self care 04/20/2025 7:30 AM CDT - 04/20/2025 11:00 AM CDT Surgery [facility] Operating Room [address] [place] [phone] Karlos Bailey MD Robotic Assisted Bladder Diverticulectomy, Intravesical Gemcitabine Administration, Diagnostic Cystoscopy 04/20/2025 7:29 AM CDT Anesthesia Event [facility] Operating Room [address] [place] [phone] hSashank Allred MD Devuono, Lauren Falvey, NP 04/20/2025 5:59 AM CDT - 04/21/2025 5:13 PM CDT Hospital Encounter [address] [phone] Karlos Bailey MD Malignant neoplasm of urinary bladder, unspecified site (HCC) Discharge Disposition: Discharge to home or self care 04/17/2025 1:45 PM CDT Pre-Admission Testing [facility] Pre Anesthesia Testing [address] [place] [phone] Preop testing (Primary Dx) 04/04/2025 Telephone [facility] Pre Anesthesia Testing [address] [place] [phone] Brooke Samuels 03/15/2025 9:05 AM CDT - 03/15/2025 10:35 AM CDT Surgery [facility] [address] [place] [address] Karlos Bailey MD Cystoscopy and Transurethral resection of bladder tumor 2 cm 03/15/2025 8:38 AM CDT Anesthesia Event [facility] [address] [place] [address] Antonio Travis MD Reynolds, Ethan Emerson, MD 03/15/2025 6:56 AM CDT - 03/15/2025 11:48 AM CDT Hospital Encounter [facility] [address] [place] [address] Karlos Bailey MD Malignant neoplasm of posterior wall of urinary bladder (HCC) (Primary Dx); Malignant neoplasm of urinary bladder, unspecified site (HCC) Discharge Disposition: Discharge to home or self care 03/11/2025 2:20 PM CDT - 03/11/2025 11:59 PM CDT Hospital Encounter [facility] [address] [place] [address] Bladder tumor Discharge Disposition: Discharge to home or self care from Last 3 Months Surgical History Surgery Date Site/Laterality Comments PARTIAL HIP ARTHROPLASTY Left PERCUTANEOUS NEPHROSTOMY PCN LEFT 05/13/2023 Left OTHER SURGICAL HISTORY 08/31/2023 Hand Assisted Laparoscopic Left Nephrectomy OTHER SURGICAL HISTORY 03/03/2024 Right ureteroscopy, right stent placement, retrograde pyelogram Medical History Medical History Date Comments Nephrolithiasis BPH (benign prostatic hyperplasia) HLD (hyperlipidemia) Hyperlipidemia 08/19/2023 Hypertension 08/19/2023 H/O left nephrectomy Malignant neoplasm of urinary bladder, unspecifi ed site (HCC) Obesity Family History Medical History Relation Name Comments [...] you have a drink containing alcohol? Never 04/17/2025 Q2: How many drinks containi ng alcohol do you have on a typical day when you are drinking? Patient does not drink Frequency of Binge Drinking Not on file 04/2025 Personal Safety Answer Date Recorded Have you ever been in or are you currently in a harmful physical or emotional relationship or is someone making you feel afraid or unsafe? Denies 04/20/2025 Sex and Gender Information Value Date Recorded Sex Assigned at Not on file Legal Sex Male 2:19 AM KAIAWHINA KURA KAUPAPA MAORI Gender Identity Not on file Sexual Orientation Not on file Obstetrics History Last Filed Vital Signs Vital Sign Reading Time Taken Comments Blood Pressure 102/54 04/21/2025 12:23 PM CDT Pulse 93 04/21/2025 12:23 PM CDT Temperature 36.6 C (97.8 F) 04/21/2025 12:23 PM CDT Respiratory Rate 16 04/21/2025 12:23 PM CDT Oxygen Saturation 97% 04/21/2025 12:23 PM CDT Inhaled Oxygen Concentration - - Weight 97.6 kg (215 lb 2.7 oz) 04/20/2025 6:15 A M CDT Height 180.3 cm (5' 11) 04/20/2025 6:15 AM CDT Body Mass Index 30.01 04/20/2025 6:15 AM CDT Plan of Treatment Health Maintenance Due Date Last Done Comments Colon Cancer Screening-Colonoscopy 1950 Depression Screening 1950 Hepatitis C Screening 1950 DTaP/Tdap/Td Vaccine (1 - Tdap) 1962 Hepatitis B Screening 1969 Pneumococcal vaccine 65+ (1 of 1 - PCV) 2001 Zoster Vaccine (1 of 2) 2001 Well Visit 65+ 2016 Covid-19 Vaccine (3 - 2024-2 6 season) 2025 11/17/2020, 10/22/2020 Influenza Vaccine (#1) 2025 9, 06/03/2018, 06/11/2017 Fall Risk Assessment 04/21/2026 04/21/2025, 02/22/2025, 03/15/2024, Additional history exists Medical Devices Implanted Type Area Net Developer With Wcf Device Identifier Shelf Expiration Date Model / Serial / Lot [employer] Airam Contour 6fr 26cm Large Inner Lumen Low Profile Bladder Ochoa Taper Latex Free 180-223 - [id number] Implanted:Qty: 1 on 03/23/2024 by Karlos Bailey MD at [facility] Right: Ureter [employer] Airam 10/24/2026 [id number] / / [id number] Explanted Type Area Net Developer With Wcf Device Identifier Shelf Expiration Date Model / Serial / Lot [employer] Airam Contour 6fr 26cm Large Inner Lumen Low Profile Bladder Ochoa Taper Latex Free 180-223 - [id number] Implanted:Qty: 1 on 03/03/2024 by Karlos Bailey MD at [facility] Explanted:Qty: 1 on 03/23/2024 at [facility] Right: Ureter [employer] Airam 09/17/2026 [id number] / / [id number] Procedures Procedure Name Priority Date/Time Associated Diagnosis Comments CYSTOGRAM Schedule Routine, Read Routine (OP Routine) 05/11/2025 9:31 AM CDT Malignant neoplasm of urinary bladder, unspecified site (HCC) CREATININE, BODY FLUID STAT 04/21/2025 10:41 AM CDT EGFR Routine 04/21/2025 6:29 AM CDT BASIC METABOLIC PANEL Routine 04/21/2025 6:29 AM CDT CBC WITHOUT DIFFERENTIAL Routine 04/21/2025 6:29 AM CDT HEMOGLOBIN AND HEMATOCRIT STAT 04/20/2025 11:54 AM CDT SURGICAL PATHOLOGY Routine 04/20/2025 10 :24 AM CDT Malignant neoplasm of urinary bladder, unspecified site (HCC) PA AN PROCEDURE PLACEHOLDER Routine 04/20/2025 8:05 AM CDT PA AN ELECTIVE ENDOTRACHEAL AIRWAY Routine 04/20/2025 8:05 AM CDT XI CYSTOTOMY - ROBOTIC ASSISTED 04/20/2025 7:32 AM CDT Malignant neoplasm of urinary bladder, unspecified site (HCC) EGFR Routine 04/17/2025 2:37 PM CDT Preop testing DIFFERENTIAL AUTO Routine 04/17/2025 2:3 7 PM CDT Preop testing BASIC METABOLIC PANEL Routine 04/17/2025 2:37 PM CDT Preop testing CBC WITH AUTO DIFFERENTIAL Routine 04/17/2025 2:37 PM CDT Preop testing HEMOGLOBIN A1C Routine 04/17/2025 2:37 PM CDT Preop testing TYPE AND SCREEN Routine 04/17/2025 2:37 PM CDT Preop testing GENERAL Routine 03/15/2025 9:40 AM CDT Malignant neoplasm of urinary bladder, unspecified site (HCC) Malignant neoplasm of posterior wall of urinary bladder (HCC) SURGICAL PATHOLOGY Routine 03/15/2025 9: 11 AM CDT Malignant neoplasm of urinary bladder, unspecified site (HCC) PA AN ELECTIVE SUPRAGLOTTIC AIRWAY Routine 03/15/2025 8:51 AM CDT CYSTOSCOPY - TRANSURETHRAL RESECTION BLADDER TUMOR 03/15/2025 8:37 AM CDT Malignant neoplasm of urinary bladder, unspecified site (HCC) ECG 12-LEAD STAT 03/15/2025 8:03 AM CDT POTASSIUM, WHOLE BLOOD STAT 03/15/2025 7:30 AM CDT MRI UROGRAM Schedule Routine, Read Routine (OP Routine) 03/11/2025 4:02 PM CDT Bladder tumor from Last 3 Months Results * FL Cystogram (05/11/2025 9:31 AM CDT) Anatomical Region Laterality Modality Body N/A Radio Fluoroscop y 05/11/2025 10:1 1 AM CDT Narrative 05/11/2025 10:17 AM CDT EXAM DESCRIPTION: FL CYSTOGRAM REASON FOR STUDY: Bladder tumor removed 3 weeks ago 275 ml cysto conray 1.7 min ft 118.7 mgy COMPARISON: MRI urogram 03/11/2025 RADIATION DOSE: Dose: 2764.1 uGym2 Dose Area Product (DAP) PROCEDURE: 275 mL of Cysto-Conray was instilled via gravity drip through the patient's existing Barrios catheter under fluoroscopic guidance. Static radiographic images were also obtained. FINDINGS: BLADDER: There is some mild trabeculation/irregularity of the posterosuperior aspect of the urinary bladder. There was no apparent extravasation of contrast from the urinary bladder. LEFT URETER: No vesicoureteral reflux. RIGHT URETER: Vesicoureteral reflux was observed. OTHER: No other abnormality noted in soft tissues or bone. IMPRESSION: No apparent extravasation of contrast from the urinary bladder. Mild trabeculation/irregularity of the posterosuperior aspect of the urinary bladder, which could be postsurgical in nature. Right-sided vesicoureteral reflux. THIS IS AN ELECTRONICALLY VERIFIED FINAL REPORT 05/11/2025 10:17 AM - Electronically signed by Hal Weir M.D. AM: AM Report ID: [id number] Reading Location: [id number] Procedure Note Hal Weir MD - 05/11/2025 EXAM DESCRIPTION: FL CYSTOGRAM REASON FOR STUDY: Bladder tumor removed 3 weeks ago 275 ml cysto conray 1.7 min ft 118.7 mgy COMPARISON: MRI urogram 03/11/2025 RADIATION DOSE: Dose: 2764.1 uGym2 Dose Area Product (DAP) PROCEDURE: 275 mL of Cysto-Conray was instilled via gravity drip throughthe patient's existing Barrios catheter under fluoroscopic guidance. Static radiographic images were also obtained. FINDINGS: BLADDER: There is some mild trabeculation/irregularity of the posterosuperior aspect of the urinary bladder. There was no apparent extravasation of contrast from the urinary bladder. LEFT URETER: No vesicoureteral reflux. RIGHT URETER: Vesicoureteral reflux was observed. OTHER: No other abnormality noted in soft tissues or bone. IMPRESSION: No apparent extravasation of contrast from the urinary bladder. Mild trabeculation/irregularity of the posterosuperior aspect of theurinary bladder, which could be postsurgical in nature. Right-sided vesicoureteral reflux. THIS IS AN ELECTRONICALLY VERIFIED FINAL REPORT 05/11/2025 10:17 AM - Electronically signed by Hal CastelanD. AM: AM Report ID: [id number] Reading Location: [id number] us Karlos Bailey MD IMG FLUOROSCOPY PROC EDURES Final Result * Creatinine, body fluid (04/21/2025 10:41 AM CDT) Specimen type, fld Peritoneal Creatinine, fld 1.76 mg/dL [facility] Comment: The above specimen type is not cleared for use in this method by the FDA. Analytical characteristics have been validated by the performing laboratory. No reference range established - see interpretive comments. Interpretive Data Pleural or Peritoneal - Fluid to serum creatinine ratio > 1.0 is indicative of urine leakage into the source. References: Elpidio Textbook of Clinical Chemistry and Molecular Diagnostics, Sixth Edition. Elsevier Press. 2018. Chapter 43, Body Fluids, p. 925 [employer] Test directory, Body Fluid Reference Intervals and/or Interpretative Information. [email or web address] Current Interpretive Data was last revised 2019. Fluid 04/21/2025 10:4 1 AM CDT 04/21/2025 10:47 AM CDT Elma Howe TRAINING MGR LAB BODY FLUIDS AND S TOOLS ORDERABLES Final Result [facility] [address] Department [place] [address] * (ABNORMAL) eGFR (04/21/2025 6:29 AM CDT) eGFR 43(L) >=60 mL/min/1. 73 m2 Comment: Interpretive Data Reference Interval Normal >/= 90 mL/min/1.73m2 Mildly decreased* 60 - 89 mL/min/1.73m2 Mildly to moderately decreased 45 - 59 mL/min/1.73m2 Moderately to severely decreased 30 - 44 mL/min/1.73m2 Severely decreased 15 - 29 mL/min/1.73m2 Kidney Failure < 15 mL/min/1.73m2 *Relative to young adult level Estimated glomerular filtration rate is determined by the 2020 CKD-EPI equation recommended by the National Kidney Foundation (A Unifying Approach to GFR Estimation: Recommendations of the NKF-ASK Task Force on Reassessing the Inclusion of Race in Diagnosing Kidney Disease, JASN 2020). The CKD-EPI equation should not be used for patients with unstable renal function and has not been validated in children and those over 70. Current interpretive data was last reviewed 2021. Blood 04/21/2025 6:29 AM CDT 04/21/2025 6:49 AM CDT Karlos Bailey MD LAB BLOOD ORDERABLES Final Result [facility] [address] [place] [address] * (ABNORMAL) CBC without differential (04/21/2025 6:29 AM CDT) WBC 9.75 3.80 - 9.90 K/cumm Hgb 11.6(L) 13.0 - 17.5 g/dL [facility] Hct 35.2(L) 38.9 - 50.3 % [facility] Plt 193 150 - 400 K/cumm [facility] MPV 11.1 9.1 - 12.3 fL [facility] RBC 3.70(L) 4.30 - 5.80 M/cumm [facility] MCV 95.1 81.3 - 96.4 fL [facility] MCH 31.4 27.1 - 33.3 pg [facility] MCHC 33.0 32.3 - 35.7 g/dL [facility] RDW CV 13.2 11.1 - 14.9 % [facility] RDW SD 45.8 35.7 - 48.1 fL [facility] NRBC abs 0.00 0.00 - 0.01 K/cumm [facility] Blood 04/21/2025 6:29 AM CDT 04/21/2025 6:50 AM CDT Karlos Bailey MD LAB BLOOD ORDERABLES Final Result [facility] [address] [employer] [address] * (ABNORMAL) Basic metabolic panel (04/21/2025 6:29 AM CDT) Sodium 141 135 - 145 mmol/L Potassium, pl 4.6 3.3 - 4.9 mmol/L [facility] Chloride 105 97 - 110 mmol/L [facility] CO2 22 22 - 32 mmol/L [facility] Anion gap 14 2 - 15 mmol/L [facility] BUN 25 6 - 25 mg/dL [facility] Creatinine 1.68(H) 0.80 - 1.30 mg/dL [facility] Glucose 111 70 - 199 mg/dL [facility] Comment: Interpretive Data Fasting glucose >/= 126 mg/dl is diagnostic for diabetes. Fasting is defined as no caloric intake for at least 8 hours. Fasting glucose between 100 mg/dl to 125 mg/dl is diagnostic of prediabetes. In a patient with classic symptoms of hyperglycemia or hyperglycemic crisis, a random glucose >/= 200 mg/dl is diagnostic for diabetes. In the absence of unequivocal hyperglycemia, results should be confirmed by repeat testing. The classification and Diagnosis of Diabetes Diabetes Care 202; 46: S19-S40. Current interpretive data was last revised 2022. Calcium 8.4(L) 8.5 - 10.3 mg/dL [facility] Blood 04/21/2025 6:29 AM CDT 04/21/2025 6:49 AM CDT Karlos Bailey MD LAB BLOOD ORDERABLES Final Result [facility] [address] [place] [employer] [place] [address] * (ABNORMAL) Hemoglobin and hematocrit (04/20/2025 11:54 AM CDT) Hgb 12.5(L) 13.0 - 17.5 g/dL Hct 39.5 38.9 - 50.3 % [facility] Blood 04/20/2025 11:5 4 AM CDT 04/20/2025 12:13 PM CDT Karlos Bailey MD LAB BLOOD ORDERABLES Final Result [address] [facility] [place] [address] * Surgical pathology (04/20/2025 10:24 AM CDT) Tissue (Diverticulum, esophageal, small bowel or bladder) 04/20/2025 10:24 AM CDT Comment:Placed in formalin a t the end of the case. Narrative [facility]OLOGY [facility] - 04/25/2025 8:07 AM CDT [place] [id number] [place], [place] [address] Tele: Renetta Burnham MD - Arm Maker Note to Patients: This report may contain a detailed description of human tissue sent by a health care provider to the laboratory for pathologic evaluation. The content of this report is essential for diagnosis and may provide important critical findings. This information may be unfamiliar to patients to review without a medical professional present. It is advised that the patient review this report in the presence of a health care provider who can answer questions and explain the details. SURGICAL PATHOLOGY REPORT Patient Name: LEXUS KIM [address]: [address] [place] [address] Gender: M : 1950 (Age: 74) Service: Surgery Location: [place] [address], Hospital #: [id number] Patient Type: [facility] OP IN BED Taken: 04/20/2025 Received 04/20/2025 Reported: 04/25/2025 Physician(s): Jessica Narayan M.D. 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, see synoptic report - Carcinoma in situ - Surgical margins negative for invasive and in-situ carcinoma - No evidence of metastatic carcinoma in one lymph node [facility]/04/25/2025 08:07 Examining Pathologist: Say Shoemaker MD, PhD Report Reviewed and Electronically Signed By Say Shoemaker MD, PhD SPECIMEN TYPE: A: BLADDER DIVERTICULUM CLINICAL IMPRESSION AND HISTORY: Malignant neoplasm of urinary bladder, unspecified site GROSS DESCRIPTION: Received in formalin labeled LEXUS KIM and bladder diverticulum is a 3 x 2.5 x 1.5 cm portion of bladder that has one open resection margin. The opposing end ends in a blind pouch. The specimen appears grossly consistent with a diverticulum. The specimen is marked with silver nitrate. The peripheral resection margin is inked blue. The specimen is opened to show granular appearing mucosa. No definitive lesions or masses are grossly identified. Sectioning through the mucosa shows no gross evidence of invasion. The specimen is entirely submitted in A1-A9 (A 1-A 2 one edge perpendicular section, A8-A9 opposing edge perpendicular section). jxi/04/20/2025 13:02 ,JXI MICROSCOPIC DESCRIPTION: Sections of the bladder diverticulum demonstrate high-grade invasive papillary urothelial carcinoma. The invasion present is within the superficial aspect of the lamina propria. The muscularis propria adjacent to the diverticulum is uninvolved by tumor. In areas suspicious for carcinoma in situ is identified and evaluated with immunostains to CK20 and p53 and highlight positive staining in the areas of carcinoma in situ. URINARY BLADDER: Cystectomy, Anterior Exenteration SPECIMEN Procedure: Diverticulectomy TUMOR Tumor Site: Right posterior Histologic Type: Urothelial carcinoma, invasive (conventional) Histologic Type Comment: Papillary Histologic Grade: High-grade Tumor Size: Greatest Dimension (Centimeters) - 1 cm Tumor Extent: Invades lamina propria (subepithelial connective tissue) Lymphatic and / or Vascular Invasion: Not identified Tumor Configuration: Papillary Treatment Effect Post Neoadjuvant Chemotherapy: No known presurgical neoadjuvant therapy MARGINS Margin Status for Invasive Tumor: All margins negative for invasive tumor Margin Status for Carcinoma in Situ / Noninvasive Papillary Urothelial Carcinoma: All margins negative for carcinoma in situ / noninvasive papillary urothelial carcinoma REGIONAL LYMPH NODES Regional Lymph Node Status: All regional lymph nodes negative for tumor Number of Lymph Nodes Examined: 1 pTNM CLASSIFICATION (AJCC 8th Edition) Reporting of pT, pN, and (when applicable) pM categories is based on information available to the pathologist at the time the report is issued. As per the AJCC (Chapter 1, 8th Ed.) it is the managing physician's responsibility to establish the final pathologic stage based upon all pertinent information, including but potentially not limited to this pathology report. pT Category: pT1 pN Category: pN0 ADDITIONAL FINDINGS Associated Epithelial Lesions: CIS CAP VERSION: Urinary Bladder 4.2.0.0 Clerical Data Follows [id number], [id number], [id number] REPORT IMAGES AND/OR SCANNED DOCUMENTS ONLY VIEWABLE IN PDF FORMAT The immunohistochemical test(s) cited in this report, if any, was developed and its performance characteristics determined by [facility] Pathology Department. It has not been cleared or approved by the U.S. Food and Drug Administration. The FDA has determined that such clearance or approval is not necessary. This test is used for clinical purposes. It should not be regarded as investigational or for research. [facility] is certified under the Clinical Laboratory Improvement Amendments of 1988 (CLIA) as qualified to perform high complexity testing. Immunostains were performed on formalin-fixed paraffin embedded tissue using a polymer diaminobenzidine chromogen detection system. Antibodies used may include clone SP1 (rabbit monoclonal, estrogen receptor), clone 1E2 (rabbit monoclonal progesterone receptor), Ki-67 (rabbit monoclonal, 30-9), CD117 (rabbit polyclonal, c-kit), and anti-Her-2/lindsay (4B5) (rabbit monoclonal primary antibody). In the event that immunohistochemistry or special stains have been performed, attending physician has confirmed appropriateness of controls. Frozen section, operating room consultation, gross examination and dissection, and case sign out may have been performed in part or completely in the following laboratories: [facility], [address] [place] [address], [address] [facility], [place] [address]. Karlos Bailey MD LAB PATHOLOGY ORDERA BLES Final Result [facility]Y [facility] Laboratory Receiving [address] [place] [address] * PA AN ELECTIVE ENDOTRACHEAL AIRWAY, PA AN PROCEDURE PLACEHOLDER (04/20/2025 8:05 AM CDT) Narrative Kerrie Farris CRNA - 04/20/2025 8:05 AM CDT Kerrie Farris CRNA 04/20/2025 8:06 AM Airway Patient location: OR Urgency: elective Indications for airway management: anesthesia Difficult airway: no Staff: Placed by: LOADER OPERATOR: eKrrie Farris CRNA Emergent airway documentation: Risks and benefits discussed: yes Consent obtained: yes Consent given by: patient Airway prep: Preoxygenated: yes Patient position: sniffing Mask difficulty assessment: 1 - vent by mask Sedation level during airway: GA Final airway details: Final airway type: endotracheal airway Tube type: ETT ETT size: 8.0 mm Cuffed: yes Technique used for successful ETT placement: video laryngoscopy Insertion site: oral Blade type: Masha Video blade type: Han Blade size: 4 Cormack-Lehane (video): grade I - full view of glottis Cuff volume: 9 mL Cuff inflated with: air ETT to lips: 23 cm Placement verified by: auscultation and CO2 detection Airway secured with: silk tape Number of attempts: 1 Shashank Allred MD ANESTHESIA ORDERA BLES Final Result * (ABNORMAL) eGFR (04/17/2025 2:37 PM CDT) eGFR 35(L) >=60 mL/min/1. 73 m2 Comment: Interpretive Data Reference Interval Normal >/= 90 mL/min/1.73m2 Mildly decreased* 60 - 89 mL/min/1.73m2 Mildly to moderately decreased 45 - 59 mL/min/1.73m2 Moderately to severely decreased 30 - 44 mL/min/1.73m2 Severely decreased 15 - 29 mL/min/1.73m2 Kidney Failure < 15 mL/min/1.73m2 *Relative to young adult level Estimated glomerular filtration rate is determined by the 2020 CKD-EPI equation recommended by the National Kid[employer] (A Unifying Approach to GFR Estimation: Recommendations of the NKF-ASK Task Force on Reassessing the Inclusion of Race in Diagnosing Kidney Disease, JASN 2020). The CKD-EPI equation should not be used for patients with unstable renal function and has not been validated in children and those over 70. Current interpretive data was last reviewed 2021. Blood 04/17/2025 2:37 PM CDT 04/17/2025 2:37 PM CDT Yani CHEEMA LAB BLOOD ORDERABLES Fin al Result [facility] [address] Department [place] [address] * (ABNORMAL) Differential, auto (04/17/2025 2:37 PM CDT) Neutrophil abs 7.04(H) 1.50 - 6.50 K/cumm Imm gran abs 0.04 0.00 - 0.10 K/cumm [facility] Lymphocyte abs 1.14 0.80 - 3.30 K/cumm [facility] Monocyte abs 0.62 0.20 - 0.80 K/cumm [facility] Eosinophil abs 0.11 0.00 - 0.50 K/cumm [facility] Basophil abs 0.07 0.00 - 0.10 K/cumm [facility] Neutrophil pct 78.1 % [facility] Comment: Interpretive Data Percent cell count reference ranges are not reported, since discordance with absolute values may lead to misinterpretation of CBC data. Current Interpretive Data was last revised on 2017. Imm gran pct 0.4 % [facility] Comment: Interpretive Data Percent cell count reference ranges are not reported, since discordance with absolute values may lead to misinterpretation of CBC data. Current Interpretive Data was last revised on 2017. Lymphocyte pct 12.6 % [facility] Comment: Interpretive Data Percent cell count reference ranges are not reported, since discordance with absolute values may lead to misinterpretation of CBC data. Current Interpretive Data was last revised on 2017. Monocyte pct 6.9 % [facility] Comment: Interpretive Data Percent cell count reference ranges are not reported, since discordance with absolute values may lead to misinterpretation of CBC data. Current Interpretive Data was last revised on 2017. Eosinophil pct 1.2 % [facility] Comment: Interpretive Data Percent cell count reference ranges are not reported, since discordance with absolute values may lead to misinterpretation of CBC data. Current Interpretive Data was last revised on 2017. Basophil pct 0.8 % [facility] Comment: Interpretive Data Percent cell count reference ranges are not reported, since discordance with absolute values may lead to misinterpretation of CBC data. Current Interpretive Data was last revised on 2017. Blood 04/17/2025 2:37 PM CDT 04/17/2025 2:37 PM CDT us Yani CHEEMA LAB BLOOD ORDERABLES Fin al Result [facility] [address] Department [place] [address] * (ABNORMAL) CBC with auto differential (04/17/2025 2:37 PM CDT) WBC 9.02 3.80 - 9.90 K/cumm Hgb 13.0 13.0 - 17.5 g/dL [facility] Hct 39.2 38.9 - 50.3 % [facility] Plt 253 150 - 400 K/cumm [facility] MPV 10.8 9.1 - 12.3 fL [facility] RBC 4.27(L) 4.30 - 5.80 M/cumm [facility] MCV 91.8 81.3 - 96.4 fL [facility] MCH 30.4 27.1 - 33.3 pg [facility] MCHC 33.2 32.3 - 35.7 g/dL [facility] RDW CV 13.2 11.1 - 14.9 % [facility] RDW SD 43.8 35.7 - 48.1 fL [facility] NRBC abs 0.00 0.00 - 0.01 K/cumm [facility] Blood 04/17/2025 2:37 PM CDT 04/17/2025 2:37 PM CDT Yani CHEEMA LAB BLOOD ORDERABLES Fin al Result [facility] [address] [facility] [employer] [place], [place] [id number] * Type and screen (04/17/2025 2:37 PM CDT) [facility] Hector, indirect Negative ABO Rh A Positive [facility] Blood 04/17/2025 2:37 PM CDT 04/17/2025 3:11 PM CDT Narrative [facility] - 04/17/2025 4:11 PM CDT Is this test being ordered in advance for a procedure?->Yes Expected date of procedure:->04/20/25 Has the patient been transfused in the past 3 months?->No Yani CHEEMA LAB BLOOD BANK TEST ORDE RABLES Final Result Performing Organization Address [facility] de Phone Number [facility] [address] [facility] [employer] [place] [address] * (ABNORMAL) Hemoglobin A1c (04/17/2025 2:37 PM CDT) [facility] Hgb A1C 6.0(H) 4.0 - 5.6 % Estimated Average Glucose 126 mg/dL [facility] Comment: The ADA recommends reporting an estimated Average Glucose (eAG) with all Hemoglobin A1c results using the equation derived from a study of 507 normal and diabetic adults. Minority populations were underrepresented and children were not included. (Diabetes Care 31:9373-5643, 2008). The eAG is not equivalent to a fasting glucose. Blood 04/17/2025 2:37 PM CDT 04/17/2025 2:37 PM CDT Yani CHEEMA LAB BLOOD ORDERABLES Fin al Result Performing Organization Address [facility] Co de Phone Number [facility] [address] [place] [address] * (ABNORMAL) Basic metabolic panel (04/17/2025 2:37 PM CDT) Sodium 140 135 - 145 mmol/L Potassium, pl 4.1 3.3 - 4.9 mmol/L [facility] Chloride 103 97 - 110 mmol/L [facility] CO2 24 22 - 32 mmol/L [facility] Anion gap 13 2 - 15 mmol/L [facility] BUN 23 6 - 25 mg/dL [facility] Creatinine 1.98(H) 0.80 - 1.30 mg/dL [facility] Glucose 108 70 - 199 mg/dL [facility] Comment: Interpretive Data Fasting glucose >/= 126 mg/dl is diagnostic for diabetes. Fasting is defined as no caloric intake for at least 8 hours. Fasting glucose between 100 mg/dl to 125 mg/dl is diagnostic of prediabetes. In a patient with classic symptoms of hyperglycemia or hyperglycemic crisis, a random glucose >/= 200 mg/dl is diagnostic for diabetes. In the absence of unequivocal hyperglycemia, results should be confirmed by repeat testing. The classification and Diagnosis of Diabetes Diabetes Care 202; 46: S19-S40. Current interpretive data was last revised 2022. Calcium 10.0 8.5 - 10.3 mg/dL [facility] Blood 04/17/2025 2:37 PM CDT 04/17/2025 2:37 PM CDT us Yani CHEEMA LAB BLOOD ORDERABLES Fin al Result [facility] [address] Department [place] [address] * GENERAL (03/15/2025 9:40 AM CDT) Narrative Karlos Bailey MD - 03/15/2025 9:40 AM CDT Karlos Bailey MD 03/15/2025 9:41 AM General - Inpatient Date/Time: 03/15/2025 9:40 AM Performed by: Karlos Bailey MD Authorized by: Karlos Bailey MD [place] Protocol: RN Notified of Procedure: yes Informed consent: Risks, benefits, alternatives discussed and patient/sales representative printing/guardian agrees and accepts Patient's stated name/ matches armband: Yes Consent form signed, dated, timed; matches correct patient, intended procedure and site: Yes Imaging: Pertinent imaging reviewed, correctly oriented and match to patient identifiers Lab/Diag test results: Pertinent lab/diag tests reviewed and match to patient identifiers Supplies, devices and special equipment are available: yes Site/side marked: yes Anesthesia (see MAR for exact dosage) Anesthesia method: None Hand hygiene performed: Yes PPE (including eye protection) in place as appropriate to the procedure: Yes Preparation: Patient was prepped using appropriate disinfectant and draped using sterile technique as needed Procedure details: Time-out was performed with PACU nursing. Medication scanned. 2000 mg of gemcitabine in 100 mL of normal saline administered per catheter, catheter clamped. Catheter will be drained in 1 hour. Chemo precautions to be used. Patient tolerance: Patient tolerated the procedure well with no immediate complications Karlos Bailey MD IN CLINIC/BEDSIDE OR DERABLES Final Result * Surgical pathology (03/15/2025 9:11 AM CDT) Tissue (Mass/Tumor/Lesion ) 03/15/2025 9:11 AM CDT Comment:Cytology suspicious for malignancy* Narrative PATHOLOGY [facility] - 03/19/2025 2:09 PM CDT EPIC results best viewed via link to PDF [facility] Department of Pathology [address] [place] [address] Note to Patients: This report may contain a detailed description of human tissue sent by a health care provider to the laboratory for pathologic evaluation. The content of this report is essential for diagnosis and may provide important critical findings. This information may be unfamiliar to patients to review without a medical professional present. It is advised that the patient review this report in the presence of a health care provider who can answer questions and explain the details. Final Report Patient Name: LEXUS KIM Address: [address] [place] [address] Gender: M : 1950 (Age: 74) Service: Surgery Location: [facility] Hospital #: [id number] Patient Type: [facility] Taken: 03/15/2025 Received: 03/15/2025 Accessioned: 03/15/2025 Reported: 03/19/2025 Physician(s):Karlos Bailey M.D. 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 Bladder diverticulum tumor: CANCER CASE SUMMARY FOR THE URINARY BLADDER: Biopsy and Transurethral Resection of Bladder Tumor (TURBT) Procedure: TURBT Tumor site: diverticulum Histologic type: Papillary urothelial carcinoma, noninvasive Associated epithelial lesions: None identified Histologic grade: Urothelial carcinoma: High-grade Tumor configuration: Papillary Muscularis propria presence: No muscularis propria (detrusor muscle) identified Lymphovascular invasion: Not identified Tumor extension: Noninvasive papillary carcinoma The pathologic stage assigned here should be regarded as provisional, and may change after integration of clinical data not provided with this specimen. CAP VERSION: UrinaryBladder 4.0.1.0 Pedro Luis Burrows MD PhD Report Electronically Reviewed and Signed Out By Pedro Luis Burrows MD PhD 03/19/2025 14:09:03 Specimen(s) Received: A: Bladder diverticulum tumor Microscopic Description: Sections from the bladder tumor specimen show multiple papillary fragments lined by cells with nuclear pleomorphism, enlargement and occasional mitotic figures. Immunohistochemical stains are performed and show these cells to be positive for CK AE1/AE3, GATA3, CK7 an with partial patchy staining by CK20. The cells are negative for CD56, chromogranin, synaptophysin, PSA and RCC. Overall these findings are consistent with a high-grade papillary urothelial carcinoma. There is no definitive evidence of invasion in this fragmented specimen. There is no definitive evidence of muscularis propria. The case was shown to Dr. Almaraz as a QA. Clinical/radiographic correlation and close continued follow-up are required. Clinical History: Malignant neoplasm of urinary bladder, unspecified site (HCC) [C67.9] Cystoscopy and bladder biopsy, possible transurethral resection of bladder tumor with gemcitabine administration Gross Description: The specimen is submitted in a single formalin filled container labeled LEXUS SHARYNSANDRAPOLLO and bladder diverticulum tumor. It is multiple prakash tissue fragments between <1 and 1 mm. All in one cassette. Alla Santo R.N., P.A./Natali Lee M.D. REPORT IMAGES AND SCANNED DOCUMENTS, IF INCLUDED, ONLY VIEWABLE IN PDF VERSION OF REPORT The performance characteristics of some immunohistochemical stains, fluorescence in-situ hybridization tests and immunophenotyping by flow cytometry cited in this report (if any) were determined by the Surgical Pathology Department at [facility] as part of an ongoing quality assurance technician program and in compliance with federally mandated regulations drawn from the Clinical Laboratory Improvement Act of 1988 (CLIA '88). Some of these tests rely on the use of analyte specific reagents and are subject to specific labeling requirements by the US Food and Drug Administration. Such diagnostic tests may only be performed in a facility that is certified by the Department of Health and Human Services as a high complexity laboratory under CLIA '88. The FDA has determined that such clearance or approval is not necessary. This test is used for clinical purposes. It should not be regarded as investigational or for research. Nevertheless, federal rules concerning the medical use of analyte specific reagents require that the following disclaimer be attached to the report: This test was developed and its performance characteristics determined by the Surgical Pathology Department [facility]. It has not been cleared or approved by the U. S. Food and Drug Administration. Note for decalcified specimens: This assay has not been validated on decalcified tissues. Results should be interpreted with caution given the possibility of false negativity on decalcified specimens Karlos Bailey MD LAB PATHOLOGY ORDERA BLES Final Result Performing Organization Address City/State/[facility] Co de Phone Number PATHOLOGY [facility] [address] [phone] * PA AN ELECTIVE SUPRAGLOTTIC AIRWAY (03/15/2025 8:51 AM CDT) Narrative Cathleen Sanches CRNA - 03/15/2025 8:51 AM CDT Cathleen Sanches CRNA 03/15/2025 8:51 AM Airway Patient location: OR Urgency: elective Date/time: 03/15/2025 8:44 AM Indications for airway management: anesthesia Difficult airway: no Staff: Placed by: LOADER OPERATOR: Cathleen Sanches CRNA Emergent airway documentation: Risks and benefits discussed: yes Consent obtained: yes Consent given by: patient Airway prep: Preoxygenated: yes Patient position: sniffing Mask difficulty assessment: 0 - not attempted Spontaneous ventilation during airway: absent Sedation level during airway: GA Final airway details: Final airway type: supraglottic airway Final supraglottic airway: unique SGA size: 4 Number of attempts: 1 Result [facility] Antonio Travis MD ANESTHESIA ORDERABLES Fi nal Result * ECG 12 lead (03/15/2025 8:03 AM CDT) 03/15/2025 8:03 AM CDT Narrative [facility] - 03/15/2025 3:36 PM CDT Vent Rate: 84 bpm RR Interval: 713 msec PA Interval: 214 msec QRS Duration: 110 msec QT Interval: 355 msec QTC Interval: 396 msec P-R-T Somers: 35 - -15 - 33 degrees IMPRESSION: SINUS RHYTHM WITH SINUS ARRHYTHMIA WITH FIRST DEGREE AV BLOCK MINIMAL VOLTAGE CRITERIA FOR LVH, CONSIDER NORMAL VARIANT [MEETS CRITERIA IN ONE OF: R(aVL), S(V1), R(V5), R(V5/V6)+S(V1)] ABNORMAL ECG NO CHANGE FROM PREVIOUS TRACING NOTED Electronically Signed By: Tulio Elena MD Result [facility] Bari Bennett MD ECG ORDERABLES Final Result Performing Organization Address City/[facility] Co de Phone Number [facility] [employer] [facility] * Potassium, whole blood (03/15/2025 7:30 AM CDT) Potassium, bld 4.2 3.3 - 4.9 mmol/L Comment: Interpretive Data This method is not able to assess for hemolysis, which may falsely increase potassium concentrations. If further testing is needed to evaluate this result, consider in-laboratory plasma potassium. Current Interpretive Data was last revised on 2022. Blood 03/15/2025 7:30 AM CDT 03/15/2025 7:33 AM CDT Result [facility] Bari Bennett MD LAB BLOOD ORDERABLES F inal Result [facility] [place] [address] * MRI Urogram (03/11/2025 4:02 PM CDT) [...] it. Electronically signed by: Tanya Hernandez M.D. [facility] Devan Bailey MD IMG MRI PROCEDURES F inal Result from Last 3 Months Insurance AETNA MEDICARE AETNA MEDICARE Advance Directives For more information, please contact: [phone] * Full Code (Latest Code Status on File) Date Activated Date Inactivated Comments 04/20/2025 2:21 PM 04/21/2025 9:18 PM * Full Code Date Activated Date Inactivated Comments 08/31/2023 6:40 PM 09/01/2023 6:26 PM Care Teams Warp Picker Relationship Specialty Start Date End Date Yovani Jose MD PCP - General 10/14/18 Karlos Bailey MD Consulting Physician Urology 09/01/23
[2025-06-06 09:28] LABS: Hematocrit 39.5 % (42.0-52.0); Hemoglobin 12.8 g/dL (14.0-18.0); Immature Granulocyte Percent A 0.2 % (0-0.5); Lymphocytes Absolute Auto 1.44 K/mm3 (0.9-3.2); Mean Corpuscular HGB Conc 32.4 g/dl (32-36); Mean Corpuscular Hemoglobin 30.5 pg (26-34); Mean Corpuscular Volume 94.3 fl (80-100); Nucleated Red Blood Cells Absolute Auto 0.000 K/mm3 (0.0-0.012); Nucleated Red Blood Cells Perc 0.0 % (0.0-0.2); Platelet Count Result 244 k/mm3 (150-375); Red Blood Count 4.19 M/mm3 (4.6-6.20); White Blood Count 6.0 K/mm3 (4.5-10.0)
[2025-06-06 09:49] LABS: Alanine Aminotransferase 26 U/L (6-50); Albumin Level 4.0 g/dL (3.5-5.1); Alkaline Phosphatase 85 U/L (38-126); Anion Gap 6 mmol/L (4-12); Aspartate Amino Transferase 26 U/L (17-59); Bilirubin,Total 0.6 mg/dL (0.2-1.3); Blood Urea Nitrogen 34 mg/dL (9-20); Calcium 9.2 mg/dL (8.4-10.2); Carbon Dioxide 26 mmol/L (22-30); Chloride 106 mmol/L (98-107); Cholesterol 233 mg/dL (0-200); Estimated Glomerular Filt Rate 30; Glucose 104 mg/dL (65-110); HDL Direct 43 mg/dL; Potassium 4.5 mmol/L (3.4-5.0); Sodium 138 mmol/L (137-145); Total Protein 7.3 g/dL (6.3-8.2); Triglycerides 225 mg/dL (<150)
[2025-06-06 10:02] LABS: Parathyroid Intact 55.8 pg/mL (14.5-75.2)
[2025-06-06 10:06] LABS: Free T4 Free Thyroxine 0.81 ng/dL (0.78-2.19)
[2025-06-06 10:21] LABS: Thyroid Stimulating Hormone 1.270 uIU/mL (0.465-4.680)
== END 2025-06-06 08:35 | disposition home or self-care (01) ==
LOC: ANHLAB 08:35
PROVIDERS: PCP Internal Medicine; Visit Provider Internal Medicine
DX: E78.00 Pure hypercholesterolemia, unspecified (principal); N18.9 Chronic kidney disease, unspecified
CPT/HCPCS: 36415; 80053; 80061; 83970; 84100; 84439; 84443; 85025